=== PATIENT | female | born 1935 | race Caucasian/White ===

== ENCOUNTER 2017-05-01 13:30 | Inpatient (IN) ==
--- OUTSIDE RECORDS SUMMARY | 2017-05-01 14:12 | External Medical Summary ---
:1935 Author Organization [facility]. Summary purpose CCDA Sent to [facility] Chief Complaint and Reason for Visit Admit Diagnosis 1 hyponatremia Problem list No authorized problems tracked for continuity of care are available for this visit. Encounters No authorized problems tracked for encounter diagnoses are available for this visit. Medications No medications recorded for this patient visit Allergies, adverse reactions, alerts Allergen Category Ingredient Status Reaction Severity Onset No Known Drug No Known Drug No Known Drug Active Allergy Allergy Allergy Immunizations No immunizations recorded for this patient visit Relevant diagnostic tests and/or laboratory data No authorized results are available for this patient visit History of procedures No procedures recorded for this patient visit. Functional status No functional or cognitive status observations are available for this visit. Vital signs No authorized vital signs are available for this visit. Social history No Social History or smoking status observations were recorded for this visit. ( Unknown if ever smoked.) Treatment Plan No treatment plan text is available for this visit. Hospital discharge instructions No discharge instruction text is available for this visit.
[2017-05-01] MEDS ORDERED: HALOPERIDOL 0.5 MG TABLET PO PRN (14:37)
[2017-05-01] MEDS ORDERED: HALOPERIDOL 5 MG/ML INJECTION IM PRN (14:37)
[2017-05-01] MEDS ORDERED: LORazepam 0.5 MG TABLET PO PRN (14:37)
[2017-05-01] MEDS ORDERED: DOCUSATE SODIUM 100 MG CAPSULE PO PRN (14:39)
[2017-05-01] MEDS ORDERED: ACETAMINOPHEN 325 MG TABLET PO PRN (14:39)
[2017-05-01 14:50] VITALS: BMI 18.9
[2017-05-01] MEDS ORDERED: TEMAZEPAM 15 MG CAPSULE PO PRN (14:52)
[2017-05-01] MEDS ORDERED: Levalbuterol 0.63mg/3ml NEB AEROSOL SCH (15:00)
[2017-05-01] MEDS ORDERED: FUROSEMIDE 40 MG TABLET PO ONE (16:38)
[2017-05-01] MEDS ORDERED: ALBUTEROL/IPRATROPIUM 2.5mg-0.5mg/3ml NEB AEROSOL PRN (17:49)
[2017-05-01] MEDS ORDERED: MENTHOL COUGH DROPS (RICOLA) MM PRN (17:51)
[2017-05-01] MEDS ORDERED: TEMAZEPAM 15 MG CAPSULE PO SCH (20:00)
--- NOTE | 2017-05-01 20:02 | History & Physical Report ---
History of Present Illness Date: 05/01/17 Chief complaint: psychosis, paranoia HPI: Kerry Lutz is an 81-year-old resident at [facility] in [place] who was directly admitted to [facility] unit today, 05/01/17, due to recent increased anxiety, agitation, insomnia and obsessing tendencies. She reports that beginning in March she has had increased falls, the most recent being on 04/09/17 at which time she was found to have a right femoral neck fracture as well as a traumatic SAH. She was subsequently admitted to [facility] under the care of the trauma team and underwent an ORIF to her right hip by Dr. Oro. Her SAH did not require any treatment and repeat CT head on 04/28/17 reportedly showed resolution of the SAH. She is unable to recall the reason for her fall and admits to recent increased hypotension and bradycardia. 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 She has been following with Dr. Rice ( nephrology) regarding a new diagnosis of SIDAH and is currently on sodium chloride tabs 3x daily. She follows with Dr. Odonnell at [place] [facility] regarding her extensive cardiac history but states that she will soon be seeing Dr. Soares as he comes to the facility closer to her home. During her hospitalization at [facility], she appears to be making gains with regard to her recovery from her hip fracture but was believed to have developed "ICU psychosis". She was started on seroquel with some improvement and discharge back to [place]. Nursing staff at the facility believed that she continued to have increased behaviors and recommended evaluation for treatment in [facility]. She was transferred to the [facility] unit today, 05/01/17, for further psychiatric evaluation and treatment. Given her extensive medical history, the hospitalist service was consulted for medical management. She is seen shortly after her arrival to [facility], while eating dinner in the day room. She is able to provide good information regarding her past medical history but is noted to get confused with the details pertaining to her recent falls and experiences and is tangential at times with her thoughts. At one point she stated that she remembers waking up on the floor after falling and had been incontinent with her urine and questioned if she had passed out or had a seizure. She denies history of prior seizures. She complains of new productive cough with yellowish sputum and increased difficulty breathing since her hospitalization. She has a reported history of COPD with home oxygen use at night. She denies any fevers, chills, chest pain, abdominal pain, nausea or vomiting. On exam, lungs sounds are course with expiratory wheezing and diminished air flow bilaterally as well as productive cough. Clinical exam also revealed left sided facial droop though she denies a history of CVA. Given her recent SAH, her Coumadin and anticoagulation was discontinued indefinitely. All medical records available at the time of the admission were reviewed extensively and contributed to her history. Review of Systems All systems PM: 10-point ROS was reviewed, no additional remarkable complaints except - Constitutional Constitutional: Absent: chills, fatigue, fever(s), headache(s), lethargy, malaise, weakness - EENMT Eyes: Present: blurry vision (increased since SAH on 04/09/17.). Absent: diplopia , loss of vision, photophobia Ears: Absent: ear pain Balance: Absent: vertigo Nose: Absent: nosebleeds Mouth/Throat: Absent: sore throat, changes in swallowing, dry mouth, hoarseness - Cardiovascular Cardiovascular: Present: syncope (questionable), dyspnea on exertion, edema ( improving.), heart murmur. Absent: chest pain, palpitations Rhythm: Present: other (paroxysmal a-fib) Vascular: Present: pedal edema. Absent: pallor of an extermity, unilateral swelling - Respiratory Respiratory: Present: cough, dyspnea, dyspnea on exertion, wheezing, chest congestion, excessive phlegm production. Absent: hemoptysis, pain on inspiration - Gastrointestinal Gastrointestinal: Absent: abdominal pain, change in bowel habits, constipation, diarrhea, melena, nausea, vomiting - Genitourinary Genitourinary: Absent: dysuria, flank pain, hematuria Menstruation: post menopausal - Musculoskeletal Musculoskeletal: Present: arthralgias (right hip), limited range of motion. Absent: back pain, deformity, neck pain - Integumentary/Breasts Integumentary: Present: other (skin tear to right forearm; extensive bruising along right leg secondary to recent fall; bruising to right face.). Absent: rash - Neurological Neurological: Present: confusion, frequent falls. Absent: abnormal movements, abnormal speech, convulsions, dizziness, focal weakness, headache(s), loss of vision, tremor(s), vertigo - Psychiatric Psychiatric: Present: abnormal sleep pattern, anxiety, behavioral changes, difficulty concentrating, hallucinations (previously during hospitalization at [place]), paranoia - Endocrine Endocrine: Absent: flushing, heat intolerance, palpitations - Hematologic/Lymphatic Hematologic/Lymphatic: Present: easy bruising - Allergic/Immunologic Allergic/Immunologic: Absent: seasonal rhinorrhea Past Medical History Patient Stated Medical History Frequent falls with gait instability. Traumatic SAH - 04/09/17. 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 History of CVA - patient denies. 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 Odonnell. Hypertension. Hyperlipidemia. Paroxysmal a-fib. Sick sinus syndrome with pacemaker placement. COPD. Vitamin D deficiency. Hypothyroidism. Aortic valve stenosis with prosthetic valve replacement. CAD. Osteoarthritis. Rheumatoid arthritis. Anxiety. Cataracts. History of breast cancer - tx with tamoxifen, radiation, mastectomy- last treatment was 08/1994; no active diagnosis of cancer per pt as of 03/10/17. Surgical History: Rt mastectomy, 1989. Lumbar fusion (hardware in place), 2004. Mitral valve repair (not replaced, but "ring" in place), 2009. Maze procdure, 2009. CABG x2 (no stents), 2009. CABG x2 (no stents), 2012. Pacemaker, most recently replaced in 2014. Salpingo-oophorectomy. T&A. D&C. Cataract(s) removed Family History Updates: Mother-Breast cancer, Hypertension. Paternal Grandfather - Colon cancer. Sister - Ovarian cancer. Sister - Stroke, Multiple sclerosis. Father - Heart attack. - Social History Smoking status: Former smoker Substance use type: does not use Alcohol intake frequency: does not drink Housing: group home Household members: none Current occupational status: retired Does patient use chewing tobacco?: No Current residence: Group Home Social history: PCP - Dr. Berna Thurman. Ortho - Dr. Oro. Trauma - Dr. Gaxiola. Cardio - Dr. Odonnell and Dr. Soares. Pulm - Dr. Severino Blanco. Medications Home Medications Medication Instructions Recorded Confirmed Type Acetaminophen [Tylenol] 325 - 650 mg PO Q6HR PRN 05/01/17 05/01/17 History Amiodarone [Pacerone] 200 mg PO DAILY 05/01/17 05/01/17 History Calcium Citrate/Vitamin D3 1 each PO DAILY 05/01/17 05/01/17 History [Calcium Citrate - Vit D Caplet] Carvedilol 12.5 mg PO BID 05/01/17 05/01/17 History Cholecalciferol (Vitamin D3) 1 tab PO DAILY 05/01/17 05/01/17 History [Vitamin D3] Docusate Sodium [Colace] 1 cap PO BID PRN 05/01/17 05/01/17 History Furosemide [Lasix] 1 tab PO BID 05/01/17 05/01/17 History Levothyroxine Tab [Synthroid] 1 tab PO ACB 05/01/17 05/01/17 History Lisinopril [Zestril] 2.5 mg PO DAILY 05/01/17 05/01/17 History Magnesium Oxide [Magox 400] 400 mg PO DAILY 05/01/17 05/01/17 History Milk of Magnesia [Mom] 30 ml PO DAILY PRN 05/01/17 05/01/17 History PEG 3350 17gm PACKET [Miralax] 17 gm PO BID 05/01/17 05/01/17 History Potassium Bicarbonate/Cit AC 30 meq PO BID 05/01/17 05/01/17 History [Potassium 25 Meq Tablet Eff] Quetiapine [Seroquel] 25 mg PO HS 05/01/17 05/01/17 History Allergies Allergy/AdvReac Type Severity Reaction Status Date / Time ciprofloxacin Allergy Unknown Unverified 05/01/17 14:30 Exam Vital Signs: Temperature 98.4 F 05/01/17 14:13 Pulse Rate 76 05/01/17 14:13 Respiratory Rate 18 05/01/17 16:42 Blood Pressure 105/65 05/01/17 14:13 Pulse Oximetry 92 05/01/17 16:42 Height/Weight/BMI: Height 5 ft 5 in Weight 113 lb 12.136 oz Body Mass Index 18.9 Comments: Patient seen while sitting in the dining room, eating dinner. - Constitutional Present: no acute distress, well developed, thin, cooperative Comments: confusion at time with frequent tangential thoughts but easily redirected. - Routine HEENT Exam Head: Present: normocephalic Eye: Present: PERRL. Absent: conjunctival icterus ENT: Present: mucous membranes moist Comments: old bruising noted to right face secondary to recent falls prior to admission. - Routine Neck Exam Present: supple, full ROM, trachea midline. Absent: tenderness - Routine Chest/Breast/Axilla Exam Chest wall: Present: pacemaker Breast: Present: right mastectomy - Routine Respiratory Exam Present: dyspnea, decreased breath sounds, prolonged expiratory phase, rhonchi, wheezes, diminished air movement Comments: productive cough on exam with course, wheezing breath sounds bilaterally. - Routine Cardiovascular Exam Present: S1, S2, murmur - Routine Abdominal Exam Present: soft, normoactive bowel sounds, non distended, non tender - Routine Extremities Exam Present: edema (1+ bilaterally), non tender, full ROM, pulses intact Comments: old bruising noted along right lateral/posterior leg; surgical site not visualized on exam due to being in dining room. - Routine Back/Spine/Pelvis Exam Back/Spine: Present: full ROM, kyphosis. Absent: vertebral tenderness - Routine Skin Exam Present: dry, warm. Absent: jaundice Comments: afebrile. - Routine Neurological Exam Present: alert, oriented X3, moving all extremities, hearing grossly intact, facial asymmetry (left sided facial droop.). Absent: CN II-XII intact slight left sided facial droop with questionable slight tongue deviation to the right. - Routine Psychiatric Exam Present: cooperative Comments: tangential thoughts with some confusion and difficulty remembering information; easily redirectible. Results - Labs CBC & Chem 7: 05/01/17 16:52 05/01/17 16:52 Microbiology Results: Microbiology 05/01/17 18:19 Sputum, Expectorated Sputum Culture - Preliminary Culture Initiated - Results Pending Assessment and Plan Assessment and Plan: Assessment: Acute psychosis with increased agitation, anxiety and behaviors. S/P right femoral neck fracture with ORIF on 04/11/17 - Dr. Elizabeth. Traumatic SAH - 04/09/17 - CT on 04/28/17 showed resolution - Dr. Gaxiola. Hypernatremia (Na 145), present on admission, history of 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 Frequent falls with gait instability. Left sided facial droop with documented history of prior CVA - patient denies. 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 Odonnell. Hypertension. Hyperlipidemia. Paroxysmal a-fib. Sick sinus syndrome with pacemaker placement. COPD. Vitamin D deficiency. Hypothyroidism. Aortic valve stenosis with prosthetic valve replacement. CAD. Osteoarthritis. Rheumatoid arthritis. Anxiety. Cataracts. History of breast cancer. Plan - 05/01/17: Agree with admission to [facility] for further psychiatric evaluation and treatment. Consult PT/OT for continuation of therapies given recent ORIF to right hip on 04/11/17. Recommended follow up as outpatient with Dr. Elizabeth. [place] remain in place from procedure. Will consult Dr. Elizabeth's office to determine when silke should be removed. Reported history of SIDAH and follows with Dr. Rice. Hypernatremia (NA 145 ) present on admission. Current fluid restriction determined prior to arrival at 1200cc/day. Continue current fluid restrictions with home medications. Obtain CXR given productive cough. Initiate breathing treatments and prednisone 40mg daily x 5 days for pulmonary inflammation and cough. Mucinex for mucolytic effect. Try and obtain sputum culture. Unsure if facial droop is new. Will consult speech therapy for dysphagia screen and diet recommendations. Borderline hypotension noted on admission. Concern low blood pressure may have contributed to prior falls/syncope. Monitor closely. Obtain orthostatic blood pressures. Given complex medical history with multiple issues present, will try and obtain additional documentation from all providers to assist in further care. Upon discharge, patient's care will be returned to her PCP. Resuscitation Status: Do Not Resuscitate - Time spent with patient Time with patient PN: other (90 minutes) - Physician Narrative Physician: Marcos Hansen MD Narrative: Date: 05/01/17 Time: 2100 I have independently evaluated and examined this patient. I reviewed the chart, the patient's history, and the DEFENCE INTELLIGENCE ANALYST/PA's documented findings as above. We discussed and formulated the assessment and plan as above with additions as below: Patient was returning from the . She says she is very concerned about her fluid restriction for her SIADH. She remained very concerned even after it was explained that her Na was 145 and that she has done a great job helping treat her SIADH. She then c/o that her surgical dressing has never been changed since surgery. She has a cough that she says has been present for a week. She says she has had low-grade temps. Patient has difficulty explaining when and how she had recent falls. She has been admitted for increased anxiety, agitation, insomnia and obsessing tendencies. Anxious. CTAB. RRR. s/nt/nd. Trace BLE edema. A&Ox3. CN II-XII intact. [place]. Left facial droop. Gait unsteady with walker. Agree with admissions to [facility]. RT to follow. Would benefit from PT/OT/ ST. Could relax fluid restriction but patient unlikely to want to at this point. Needs accurate i&o's given EF 20% and diastolic dysfunction. Hospital Course Summary Disclaimer: The visit summary below is not to be considered part of the above Progress Note. Hospital Course: Plan - 05/01/17: Agree with admission to [facility] for further psychiatric evaluation and treatment. Consult PT/OT for continuation of therapies given recent ORIF to right hip on 04/11/17. Recommended follow up as outpatient with Dr. Elizabeth. Silke remain in place from procedure. Will consult Dr. Elizabeth's office to determine when silke should be removed. Reported history of SIDAH and follows with Dr. Rice. Hypernatremia (NA 145 ) present on admission. Current fluid restriction determined prior to arrival at 1200cc/day. Continue current fluid restrictions with home medications. Obtain CXR given productive cough. Initiate breathing treatments and prednisone 40mg daily x 5 days for pulmonary inflammation and cough. Mucinex for mucolytic effect. Try and obtain sputum culture. Unsure if facial droop is new. Will consult speech therapy for dysphagia screen and diet recommendations. Borderline hypotension noted on admission. Concern low blood pressure may have contributed to prior falls/syncope. Monitor closely. Obtain orthostatic blood pressures. Given complex medical history with multiple issues present, will try and obtain additional documentation from all providers to assist in further care. Upon discharge, patient's care will be returned to her PCP.
[2017-05-01] MEDS: CARVEDILOL 12.5 MG TABLET PO SCH (20:07)
[2017-05-01] MEDS: GUAIFENESIN LA 600 MG TABLET PO SCH (20:08)
[2017-05-01] MEDS: POTASSIUM BICARBONATE 25 MEQ PO SCH (20:09)
[2017-05-01] MEDS: POLYETHYL GLYCOL 3350 17gm PACKET PO SCH (20:42)
[2017-05-01] MEDS ORDERED: LORazepam 1 MG TABLET PO SCH (21:00)
[2017-05-01] MEDS ORDERED: FUROSEMIDE 80 MG TABLET PO SCH (21:00)
[2017-05-01] MEDS ORDERED: QUETIAPINE 25 MG TABLET PO SCH (21:00)
[2017-05-01] MEDS: ALBUTEROL/IPRATROPIUM 2.5mg-0.5mg/3ml NEB AEROSOL SCH (21:30)
[2017-05-01] MEDS: BUDESONIDE INH.SOLN 0.5mg/2ml NEB AEROSOL SCH (21:30)
[2017-05-02] MEDS: LEVOTHYROXINE 100 MCG PO SCH ×2 (04:57→09:05)
[2017-05-02] MEDS: PredniSONE 20 MG TABLET PO SCH ×2 (08:15→15:18)
[2017-05-02] MEDS: GUAIFENESIN LA 600 MG TABLET PO SCH (08:15)
[2017-05-02] MEDS: CARVEDILOL 12.5 MG TABLET PO SCH (08:16)
[2017-05-02] MEDS: FUROSEMIDE 40 MG TABLET PO SCH ×2 (08:16→13:23)
[2017-05-02] MEDS: POTASSIUM BICARBONATE 25 MEQ PO SCH (08:23)
[2017-05-02] MEDS: POLYETHYL GLYCOL 3350 17gm PACKET PO SCH (08:26)
[2017-05-02] MEDS ORDERED: LISINOPRIL 2.5 MG TABLET PO SCH (09:00)
[2017-05-02] MEDS ORDERED: MAGNESIUM OXIDE 400 MG TABLET PO SCH (09:00)
[2017-05-02] MEDS ORDERED: AMIODARONE 200 MG TABLET PO SCH (09:00)
[2017-05-02 09:59] VITALS: RESP 20; O2SAT 93
[2017-05-02] MEDS: BUDESONIDE INH.SOLN 0.5mg/2ml NEB AEROSOL SCH (10:00)
[2017-05-02] MEDS: ALBUTEROL/IPRATROPIUM 2.5mg-0.5mg/3ml NEB AEROSOL SCH ×3 (10:00→17:27)
--- NOTE | 2017-05-02 13:19 | XRay Report ---
INDICATION: dyspnea, CHF, productive cough PROCEDURE: CHEST 2-VIEWS UPRIGHT (PA & LAT) Encounter: Initial Comparison: April 08, 2017 Findings: New small bilateral pleural effusions with lower lobe airspace opacities. Upper lung martinez are clear. No pneumothorax. Cardiac silhouette remains severely enlarged. Prior CABG with left pacemaker. Mediastinal contours are stable. Pulmonary vascularity appears stable. Impression: New small effusions with lower lobe airspace opacities could be due to mild CHF. Underlying pneumonia cannot be excluded. Recommend clinical and laboratory correlation. .
[2017-05-02 17:23] VITALS: BP 100/78; PULSE 81; TEMP 98.4
[2017-05-02] MEDS ORDERED: CARVEDILOL 12.5 MG TABLET PO SCH (17:30)
--- NOTE | 2017-05-02 17:45 | Progress Note ---
- Date 05/02/17 Subjective: Kerry is seen today in follow up for her recent admission. She is seen initial as she is being wheeled to x-ray for her CXR and then again after returning to the unit. She appears more fatigued today and reports that she isn't feeling as well today as yesterday. She also complains of continued cough but is pleased that she seems to be getting more yellow/green sputum up. She denies any chest pain, abdominal pain, nausea, vomiting or dysuria. Review of admission labs revealed she is RSV positive. She complains of feeling more short of breath and had to be placed on 3L NC to sustain oxygen levels above 90% . She denies any fevers or chills. Patient's primary, Dr. Berna Thurman, was contacted today, and patient case was discussed extensively. She was able to provide more information regarding the recent changes in the patient's health and mentation. She reports that in January the patient started to experience more peripheral edema and insomnia believed to be due to orthopnea. At that time, spironolactone was added to her medications with some improvement. In early March, the patient's sodium started to trend down gradually. On approximately 03/13/17, the patient had a mechanical fall while feeding the birds at her home and suffered a head contusion. Her sodium continued to trend down and was found to be Na 123 on 03/25/17. At that time, she was also noted to be more confused and asking repetitive questions, specifically regarding her care. She was then admitted to [facility] and placed on a fluid restriction which resulted in her sodium decreasing further to 120. She was transferred to [facility] on 03/30/[address] Rice and diagnosed with SIADH. She was believed to be sodium depleted and salt tabs were initiated in addition to increased diuresis with improvement. She was discharged back to [place] but was noted to have continued confusion which appeared worse as well as acute delusions. On 04/09, while at [place], nursing reports that the patient "threw herself on the floor" due to delusions which resulted in a right hip fracture and SAH. She was initially admitted at [facility] and then transferred to [facility] for treatment. She underwent ORIF of her right hip on 04/11/[address] Gaxiola saw her regarding her new SAH but determined it was not surgical. She was taken off her chronic anticoagulation with Coumadin for her history of a-fib and valvular disease given her SAH. She seemed to be improving and was discharged back to [place] on 04/14/17. On 04/22 she appeared to have some increased swelling and followed up with Dr. Rice who discontinued her sodium tablets. She was then seen by her roofer helper, Dr. Odonnell who recommended increasing her Lasix to 80mg BID. The patient then followed up with Dr. Thurman on due to new cough and found to have new wheezing and was started on Xopenex. PCP believed wheezing was due to fluid overload, despite 17 pound weight loss since initiation of high dose Lasix and thus reduced her Lasix to 40mg BID. She reportedly continued to exhibit increased anxieties, insomnia and obsessing over her treatment plans, specifically her fluid restriction. Family became increasing concerned and felt the patient needed inpatient psychiatric care she she was admitted to [facility]. On arrival she was noted to be acute short of breath. Respiratory panel was obtained and was positive for RSV. Throughout the night and into today, her respiratory function has declined, requiring continuous oxygen to maintain SAO2. Due to her acute respiratory failure with hypoxia and hypercapnia and acute RSV infection, it was decided she would benefit from being transferred to the medical unit. Treatment plan discussed with Dr. Garza who is happy to continue psychiatric cares after transfer to medical. Patient's niece, Esther, was contacted and an extensive discussion regarding change in clinical status and recommendations for transfer to medical floor was had and she agreed with plan. All labs, medications, imaging results and recommendations were also discussed with the patient who openly agreed to moving to medical floor. The hospitalist will continue care after transfer. Objective Vital signs: Temperature 98.2 F 05/02/17 08:00 Pulse Rate 84 05/02/17 09:45 Respiratory Rate 20 05/02/17 13:55 Blood Pressure 108/78 05/02/17 08:00 Pulse Oximetry 93 05/02/17 09:45 Height/Weight/BMI: Height 5 ft 5 in Weight 113 lb 12.136 oz Body Mass Index 18.9 Comments: Patient appears more fatigued today with increased respiratory distress despite oxygen supplement at 3L. 5-6 word conversational dyspnea with increased respiratory effort noted. - Constitutional Present: well developed, thin, cooperative Comments: appeared tired and not to feel well. - Routine HEENT Exam Head: Present: normocephalic Eye: Present: PERRL. Absent: conjunctival icterus ENT: Present: mucous membranes dry - Routine Respiratory Exam Present: accessory muscle use, dyspnea, decreased breath sounds, rhonchi, wheezes. Absent: stridor Comments: diminished breath sounds with rhonchi bilaterally; frequent, productive cough with mild conversational dyspnea; currently on 3L. - Routine Cardiovascular Exam Present: S1, S2, irregular rhythm - Routine Abdominal Exam Present: soft, normoactive bowel sounds, non tender, distended - Routine Extremities Exam Present: edema (1+), non tender, full ROM, pulses intact - Routine Back/Spine/Pelvis Exam Back/Spine: Present: full ROM. Absent: vertebral tenderness - Routine Musculoskeletal Exam Musculoskeletal: Present: moving extremities well - Routine Skin Exam Present: dry, warm. Absent: jaundice Comments: afebrile. - Routine Neurological Exam Present: alert, oriented X3, moving all extremities, facial asymmetry (left sided facial droop), normal speech - Routine Lymphatic Exam Lymphatic: Absent: lymphedema - Routine Psychiatric Exam Present: cooperative Results - Labs CBC & Chem 7: 05/01/17 16:52 05/01/17 16:52 Microbiology Results: Microbiology 05/02/17 09:55 Sputum, Expectorated Gram Stain - Final 05/02/17 09:55 Sputum, Expectorated Sputum Culture - Preliminary Culture Initiated - Results Pending 05/01/17 18:19 Sputum, Expectorated Gram Stain - Final 05/01/17 18:19 Sputum, Expectorated Sputum Culture - Final Assessment and Plan Assessment and Plan: Assessment: Acute psychosis with increased agitation, anxiety and behaviors. S/P right femoral neck fracture with ORIF on 04/11/17 - Dr. Elizabeth. Traumatic SAH - 04/09/17 - CT on 04/28/17 showed resolution - Dr. Gaxiola. Hypernatremia (Na 145), present on admission, history of 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 Frequent falls with gait instability. Left sided facial droop with documented history of prior CVA - patient denies. 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 Odonnell. Hypertension. Hyperlipidemia. Paroxysmal a-fib. Sick sinus syndrome with pacemaker placement. COPD. Vitamin D deficiency. Hypothyroidism. Aortic valve stenosis with prosthetic valve replacement. CAD. Osteoarthritis. Rheumatoid arthritis. Anxiety. Cataracts. History of breast cancer. Plan - 05/02/17 Will plan to move patient to observation status on medication floor given respiratory failure with hypoxia and hypercapnia as well as RSV. Family contacted and agrees with plan. Will continue psychiatric cares on floor with close medical monitoring. Resuscitation Status: Do Not Resuscitate - Time spent with patient Time with patient PN: other (120 minutes) - Physician Narrative Physician: Marcos Hansen MD Narrative: Date: 05/02/17 Time: 1718 Hospital Course Summary Disclaimer: The visit summary below is not to be considered part of the above Progress Note. Hospital Course: Plan - 05/01/17: Agree with admission to [facility] unit for further psychiatric evaluation and treatment. Consult PT/OT for continuation of therapies given recent ORIF to right hip on 04/11/17. Recommended follow up as outpatient with Dr. Elizabeth. Silke remain in place from procedure. Will consult Dr. Elizabeth's office to determine when silke should be removed. Reported history of SIDAH and follows with Dr. iRce. Hypernatremia (NA 145 ) present on admission. Current fluid restriction determined prior to arrival at 1200cc/day. Continue current fluid restrictions with home medications. Obtain CXR given productive cough. Initiate breathing treatments and prednisone 40mg daily x 5 days for pulmonary inflammation and cough. Mucinex for mucolytic effect. Try and obtain sputum culture. Unsure if facial droop is new. Will consult speech therapy for dysphagia screen and diet recommendations. Borderline hypotension noted on admission. Concern low blood pressure may have contributed to prior falls/syncope. Monitor closely. Obtain orthostatic blood pressures. Given complex medical history with multiple issues present, will try and obtain additional documentation from all providers to assist in further care. Upon discharge, patient's care will be returned to her PCP. Plan - 05/02/17 Will plan to move patient to observation status on medication floor given respiratory failure with hypoxia and hypercapnia as well as RSV. Family contacted and agrees with plan. Will continue psychiatric cares on floor with close medical monitoring.
--- NOTE | 2017-05-02 23:40 | 24 Hour Neuropsychiatic Eval ---
Date of Admission: 05/01/17 13:30 History of Present Illness: Patient is an 81-year-old retired female who was admitted to [facility] from [facility] on 05/01/17 due to uncontrolled anxiety that caused significant distress and difficulty sleeping. I spoke with her PCP over the phone, who felt at that time that patient was medically stable but once admitted , the hospitalist here had significant concerns about her medical condition. Per hospitalist: "She reports that beginning in March she has had increased falls, the most recent being on 04/09/17 at which time she was found to have a right femoral neck fracture as well as a traumatic SAH. She was subsequently admitted to [facility] under the care of the trauma team and underwent an ORIF to her right hip by Dr. Oro. Her SAH did not require any treatment and repeat CT head on 04/28/17 reportedly showed resolution of the SAH. She is unable to recall the reason for her fall and admits to recent increased hypotension and bradycardia. 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 At one point she stated that she remembers waking up on the floor after falling and had been incontinent with her urine and questioned if she had passed out or had a seizure. She denies history of prior seizures. She complains of new productive cough with yellowish sputum and increased difficulty breathing since her hospitalization. She has a reported history of COPD with home oxygen use at night. She denies any fevers, chills, chest pain, abdominal pain, nausea or vomiting. On exam, lungs sounds are course with expiratory wheezing and diminished air flow bilaterally as well as productive cough. Clinical exam also revealed left sided facial droop though she denies a history of CVA. Given her recent SAH, her Coumadin and anticoagulation was discontinued indefinitely." She was found to have low O2 sats overnight and tested positive for RSV, possibly with a developing pneumonia after arrival to our unit. On interview, patient is mostly oriented other than getting the date wrong by 1 day. She reports that her mood has been okay though she does have anxiety about her medical conditions and whether they are being taken care of properly. She endorses decreased appetite, low energy, difficulty with sleep. She denies SI, HI, AVH. SLUMS upon admission. [facility] Patient Stated Medical History Cerebrovascular Accident Yes Congestive Heart Failure Yes Other Cardiology Yes: AFIB Osteoarthritis Yes Clinic Medical History (Last Reviewed 03/11/17 @ 15:17 by Karen Ulloa MD) Rheumatoid arthritis (Chronic Medical) Osteoarthritis (Chronic Medical) Bone disorder (Acute Medical) Muscle disorder (Acute Medical) Anxiety (Resolved Medical) Cataract (Resolved Medical) Thyroid disease (Chronic Medical) Breast cancer (Inactive Medical) tx was tamoxifen, radiation, and mastectomy; last treatment was 08/1994; no active dx of cancer per pt as of 03/10/17 CAD (coronary artery disease) (Chronic Medical) Congestive heart failure (Chronic Medical) Atrial fibrillation (Chronic Medical) Surgical History: Rt mastectomy, 1989. Lumbar fusion (hardware in place), 2004. Mitral valve repair (not replaced, but "ring" in place), 2009. Maze procdure, 2009. CABG x2 (no stents), 2009. CABG x2 (no stents), 2012. Pacemaker, most recently replaced in 2014. Salpingo-oophorectomy. T&A. D&C. Cataract(s) removed Family History: Family History (Last Reviewed 03/11/17 @ 15:17 by Karen Ulloa MD) Mother Breast cancer Hypertension Paternal Grandfather Colon cancer Sister Ovarian cancer Stroke Multiple sclerosis Father Heart attack Family History Updates: Mother-Breast cancer, Hypertension. Paternal Grandfather - Colon cancer. Sister - Ovarian cancer. Sister - Stroke, Multiple sclerosis. Father - Heart attack. - Social History Smoking status: Former smoker Substance use type: does not use Alcohol intake frequency: does not drink Housing: custodial Household members: none Current occupational status: retired Does patient use chewing tobacco?: No Current residence: [facility] Social history: Strengths: previously high functioning, SLUMS , able to communicate well verbally Review of Systems - Constitutional Constitutional: Present: as per HPI, fatigue, weakness - EENMT Eyes: Present: blurry vision (since brain bleed) Ears: Absent: ear pain Balance: Absent: vertigo Nose: Absent: nosebleeds Mouth/Throat: Absent: sore throat, changes in swallowing, dry mouth, hoarseness - Cardiovascular Rhythm: Present: other (paroxysmal a-fib) Vascular: Present: pedal edema. Absent: pallor of an extermity, unilateral swelling - Genitourinary Menstruation: post menopausal - Psychiatric Psychiatric: Present: as per HPI, abnormal sleep pattern, anxiety, behavioral changes. Absent: homicidal ideation, suicidal ideation, visual hallucinations Mental Status Exam Vitals: Last Vital Signs Temp 98.4 F 05/02/17 16:00 Pulse 81 05/02/17 16:00 Resp 20 05/02/17 16:00 BP 100/78 05/02/17 16:00 Pulse Ox 93 05/02/17 16:00 Height: 1.65 m Weight: 51.8 kg - Mental Status Exam Muscle Strength/Tone: Weak Dressing: Casual Grooming: Fair Attitude: Cooperative Motor Activity: Retardation Eye Contact: Good Speech: Normal Volume: Normal Rhythm: Appropriate Rhythm Sensory: Alert Orientation: Disoriented to time (by 1 day only), Oriented to person, Oriented to place Mood: Anxious Affect: Anxious Rate of Thoughts: Appropriate Rate Thought Organization: Tangential (at times) Associations: Intact Thought Content: Somatic Concerns Perception/Psychotic: Perception Normal Fund of Knowledge: Other (decreased from premorbid baseline, SLUMS ) Memory: Poor-recent Suicidal Ideation: Denies Homicidal Ideation: Denies Insight: Limited Judgement: Limited Impulse Control: Fair - Laboratory Result Diagrams: 05/01/17 16:52 05/01/17 16:52 Laboratory Results - last 24 hr 05/01/17 05/02/17 05/02/17 16:52 05:20 08:20 Vitamin B12 479 Folate 17.8 Adenovirus (PCR) Negative Cancelled B.parapertussis DNA PCR Negative Cancelled C. pneumoniae DNA (PCR) Negative Cancelled Coronavirus OC43 (PCR) Negative Cancelled Coronavirus HKU1 (PCR) Negative Cancelled Coronavirus 229E (PCR) Negative Cancelled Coronavirus NL63 (PCR) Negative Cancelled Human Metapneumovir PCR Negative Cancelled Influenza A (H1) PCR Cancelled Influ A (H1N1/09) PCR Cancelled Influenza A (H3) PCR Cancelled Influenza Type A (PCR) Negative Cancelled Influenza A Untype (PCR) Cancelled Influenza Type B (PCR) Negative Cancelled M. pneumoniae (PCR) Negative Cancelled Parainfluenza 1 (PCR) Negative Cancelled Parainfluenza 2 (PCR) Negative Cancelled Parainfluenza 3 (PCR) Negative Cancelled Parainfluenza 4 (PCR) Negative Cancelled RSV (PCR) Detected A* Cancelled Entero/Rhino (PCR) Negative Cancelled Assessment and Plan (1) Anxiety, generalized Status: Acute (2) Neurocognitive disorder Status: Acute (3) RSV (acute bronchiolitis due to respiratory syncytial virus) Status: Acute (4) Respiratory failure with hypoxia and hypercapnia Status: Acute (5) Atrial fibrillation Status: Chronic (6) CAD (coronary artery disease) Status: Chronic (7) Congestive heart failure Status: Chronic (8) Rheumatoid arthritis Status: Chronic (9) Thyroid disease Status: Chronic After extensive discussion with hospitalist, decision was made to transfer to the medical floor and consult psychiatry for recommendations. Patient has been anxious but redirectable without use of PRNs on our unit. Hospitalist feels short course of steroids necessary due to respiratory status; will manage anxiety and insomnia through this period. Would like to optimize medical condition including sleep, oxygen, nutrition and evaluate symptoms afterwards. On admission, I discontinued Restoril and alternatively started Ativan 1mg at HS (on 05/01). Patient slept well overnight. On the medical floor, plan to taper Ativan and start mirtazapine 7.5mg PO q HS to target sleep, anxiety, insomnia. Continue Seroquel 25mg PO q HS for the time being. Recommended adding vitamin B12, folate to standard labs as above. CT prior to admission showed stable brain bleed.
== END 2017-05-02 18:25 | disposition short-term general hospital (02) | DRG 885 ==
LOC: GEN 13:30
PROVIDERS: ADMIT Psychiatry & Neurology Psychiatry; ATTEND Psychiatry & Neurology Psychiatry

== ENCOUNTER 2017-05-02 18:20 | Observation (INO) ==
[2017-05-02] MEDS ORDERED: ALBUTEROL/IPRATROPIUM 2.5mg-0.5mg/3ml NEB AEROSOL PRN (19:02)
[2017-05-02] MEDS ORDERED: HALOPERIDOL 5 MG/ML INJECTION IM PRN (19:02)
[2017-05-02] MEDS ORDERED: LORazepam 0.5 MG TABLET PO PRN (19:02)
[2017-05-02] MEDS ORDERED: HALOPERIDOL 0.5 MG TABLET PO PRN (19:02)
[2017-05-02] MEDS ORDERED: ACETAMINOPHEN 325 MG TABLET PO PRN (19:02)
[2017-05-02] MEDS ORDERED: ONDANSETRON 4 MG/2 ML INJECTION IVP PRN (19:04)
--- NOTE | 2017-05-02 20:09 | History & Physical Report ---
History of Present Illness Date: 05/02/17 Chief complaint: respiratory failure with hypoxia and hypercapnia, RSV HPI: Kerry Lutz is an 81-year-old resident at [facility] in [place] with an incredibly complex medical history who was directly admitted to [facility] on 05/01/17 for treatment of recently increased anxiety, agitation, insomnia and obsessing tendencies. It was reported that in January the patient started to experience more peripheral edema and insomnia believed to be due to orthopnea. At that time, spironolactone was added to her medications with some improvement. In early March, the patient's sodium started to trend down gradually. On approximately 03/13/17, the patient had a mechanical fall while feeding the birds at her home and suffered a head contusion without other injury. Repeat labs revealed that her sodium continued to trend down and was found to be 123 on 03/25/17. At that time, she was also noted to be more confused and asking repetitive questions, specifically regarding her care, which was unusual for her. She was then admitted to [facility] and placed on a fluid restriction which resulted in her sodium decreasing further to 120. She was then transferred to [facility] on 03/30/[address] Rice (nephrology) and diagnosed with SIADH. She was believed to be sodium depleted and salt tabs were initiated in addition to increased diuresis which resulted in improvement. She was discharged back to [facility] but was noted to have continued confusion per family and staff which appeared worse than previous as well as acute delusions. On 04/09, while at [facility], nursing reports that the patient "threw herself on the floor" due to delusions which resulted in a right hip fracture and SAH. She was initially admitted at [facility] and then transferred to [facility] for treatment. She underwent ORIF of her right hip on 04/11/[address] Gaxiola saw her regarding her new SAH but determined it was not surgical. She was taken off her chronic anticoagulation with Coumadin for her history of a-fib and valvular disease given her SAH. She seemed to be improving and was discharged back to [facility] on 04/14/17. On 04/22 she appeared to again have some increased swelling and followed up with Dr. Rice who discontinued her sodium tablets. She was then seen by her cook short order, Dr. Odonnell who recommended increasing her Lasix to 80mg BID. The patient followed up with Dr. Thurman on 04/28/17 due to new cough and found to have new wheezing and was started on Xopenex. PCP believed wheezing was due to fluid overload, despite 17 pound weight loss since initiation of high dose Lasix and thus reduced her Lasix to 40mg BID. She reportedly continued to exhibit increased anxieties, insomnia and obsessing over her treatment plans, specifically her fluid restriction of 1500cc. Family became increasing concerned and felt the patient needed inpatient psychiatric care. She she was admitted to [facility] on 05/01/17 for further psychiatric evaluation and treatment. The hospitalist service saw her on arrival to [facility] on 05/01/17 and noted she appeared to be acutely short of breath. Respiratory panel was obtained at that time and was positive for RSV. Throughout the night on 05/01 and into 05/02, her respiratory function gradually declined, requiring the placement of continuous oxygen to maintain SAO2 >90%. Due to her acute respiratory failure with hypoxia and hypercapnia and acute RSV infection, it was decided she would benefit from being transferred to the medical unit. Treatment plan was discussed with Dr. Garza who is happy to continue psychiatric cares after transfer to medical. Patient's niece, Esther, was contacted and an extensive discussion regarding change in clinical status and recommendations for transfer to medical floor was had and she agreed with plan. All labs, medications, imaging results and recommendations were also discussed with the patient who openly agreed to moving to medical floor. She was admitted to observation status under the care of Dr. Hansen for further evaluation and close respiratory monitoring. Review of Systems All systems PM: 10-point ROS was reviewed, no additional remarkable complaints except - Constitutional Constitutional: Present: chills, fatigue, malaise, weakness (generalized). Absent: fever(s), headache(s) - EENMT Eyes: Present: change in vision (since SAH). Absent: loss of vision, photophobia Ears: Absent: ear pain Nose: Absent: nosebleeds Mouth/Throat: Present: dry mouth. Absent: sore throat - Cardiovascular Cardiovascular: Present: dyspnea on exertion, orthopnea, edema, heart murmur. Absent: chest pain, palpitations Vascular: Present: pedal edema. Absent: pallor of an extermity - Respiratory Respiratory: Present: cough, dyspnea, dyspnea on exertion, wheezing, chest congestion. Absent: hemoptysis - Gastrointestinal Gastrointestinal: Present: constipation, dyspepsia. Absent: abdominal pain, diarrhea, nausea, vomiting - Genitourinary Genitourinary: Absent: dysuria, flank pain, hematuria Menstruation: post menopausal - Musculoskeletal Musculoskeletal: Present: muscle weakness. Absent: back pain, deformity - Integumentary/Breasts Integumentary: Absent: rash - Neurological Neurological: Present: weakness. Absent: confusion, convulsions, dizziness, focal weakness, headache(s) - Psychiatric Psychiatric: Present: abnormal sleep pattern, anxiety, behavioral changes - Endocrine Endocrine: Absent: flushing, heat intolerance, palpitations - Hematologic/Lymphatic Hematologic/Lymphatic: Absent: easy bruising - Allergic/Immunologic Allergic/Immunologic: Absent: seasonal rhinorrhea Past Medical History Patient Stated Medical History Frequent falls with gait instability. Traumatic SAH - 04/09/17. [facility] - Dr. Rice. History of CVA - patient denies. 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 Odonnell. Protein calorie malnutrition, mild. Hypertension. Hyperlipidemia. Paroxysmal a-fib. Sick sinus syndrome with pacemaker placement. Possible COPD. Vitamin D deficiency. Hypothyroidism. Aortic valve stenosis with prosthetic valve replacement. CAD. Osteoarthritis. Rheumatoid arthritis. Anxiety. Cataracts. History of breast cancer - tx with tamoxifen, radiation, mastectomy- last treatment was 08/1994; no active diagnosis of cancer per pt as of 03/10/17. Surgical History: Rt mastectomy, 1989. Lumbar fusion (hardware in place), 2004. Mitral valve repair (not replaced, but "ring" in place), 2009. Maze procdure, 2009. CABG x2 (no stents), 2009. CABG x2 (no stents), 2012. Pacemaker, most recently replaced in 2014. Salpingo-oophorectomy. T&A. D&C. Cataract(s) removed Family History Updates: Mother-Breast cancer, Hypertension. Paternal Grandfather - Colon cancer. Sister - Ovarian cancer. Sister - Stroke, Multiple sclerosis. Father - Heart attack. - Social History Smoking status: Former smoker (quit 1983.) Substance use type: does not use Alcohol intake frequency: does not drink Housing: snf Household members: none Current occupational status: retired (nurse) Current residence[place] Social history: PCP - Dr. Berna Thurman. Ortho - Dr. Oro. Trauma - Dr. Gaxiola. Cardio - Dr. Odonnell and Dr. Soares. Pulm - Dr. Severino Blanco. Nephro - Dr. Rice. Medications Home Medications Medication Instructions Recorded Confirmed Type Acetaminophen [Tylenol] 325 - 650 mg PO Q6HR PRN 05/01/17 05/01/17 History Amiodarone [Pacerone] 200 mg PO DAILY 05/01/17 05/01/17 History Calcium Citrate/Vitamin D3 1 each PO DAILY 05/01/17 05/01/17 History [Calcium Citrate - Vit D Caplet] Carvedilol 12.5 mg PO BID 05/01/17 05/01/17 History Cholecalciferol (Vitamin D3) 1 tab PO DAILY 05/01/17 05/01/17 History [Vitamin D3] Docusate Sodium [Colace] 1 cap PO BID PRN 05/01/17 05/01/17 History Levothyroxine Tab [Synthroid] 1 tab PO ACB 05/01/17 05/01/17 History Lisinopril [Zestril] 2.5 mg PO DAILY 05/01/17 05/01/17 History Magnesium Oxide [Magox 400] 400 mg PO DAILY 05/01/17 05/01/17 History Milk of Magnesia [Mom] 30 ml PO DAILY PRN 05/01/17 05/01/17 History PEG 3350 17gm PACKET [Miralax] 17 gm PO BID 05/01/17 05/01/17 History Potassium Bicarbonate/Cit AC 30 meq PO BID 05/01/17 05/01/17 History [Potassium 25 Meq Tablet Eff] Quetiapine [Seroquel] 25 mg PO HS 05/01/17 05/01/17 History Albuterol/Ipratropium [Duoneb] 3 ml AEROSOL RTQID each 05/02/17 Rx Albuterol/Ipratropium [Duoneb] 3 ml AEROSOL RTQID PRN each 05/02/17 Rx Budesonide Inhalation [Pulmicort 0.5 mg AEROSOL RTBID vial 05/02/17 Rx Inhalation] Furosemide [Lasix] 40 mg PO 0800,1200 tab 05/02/17 Rx Guaifenesin LA [Mucinex LA] 1,200 mg PO BID tab 05/02/17 Rx Haloperidol Inj [Haldol] 0.5 mg IM Q6H PRN vial 05/02/17 Rx Haloperidol [Haldol] 0.5 mg PO Q6H PRN tab 05/02/17 Rx LORazepam [Ativan] 0.5 mg PO Q6H PRN tab 05/02/17 Rx LORazepam [Ativan] 1 mg PO HS tab 05/02/17 Rx Menthol Cough Drops [Ricola Sf] 1 lozenge MM PRN PRN lozenge 05/02/17 Rx PredniSONE [Deltasone 20 mg] 40 mg PO WB tab 05/02/17 Rx Allergies Allergy/AdvReac Type Severity Reaction Status Date / Time ciprofloxacin Allergy Unknown Verified 05/02/17 01:36 ezetimibe AdvReac Mild Myalgia Verified 05/02/17 01:36 Exam Height/Weight/BMI: Height 5 ft 5 in Comments: Patient is initially seen immediately after being transferred to medical. She appears more fatigued and continues to have some tachypnea despite being on 3L NC. Frequent productive cough. - Constitutional Present: mild distress, well developed, thin, cooperative - Routine HEENT Exam Head: Present: normocephalic Eye: Present: PERRL. Absent: conjunctival icterus ENT: Present: mucous membranes dry Comments: old bruising noted to right side of face from prior fall. - Routine Neck Exam Present: supple, full ROM, trachea midline - Routine Chest/Breast/Axilla Exam Chest wall: Present: pacemaker - Routine Respiratory Exam Present: accessory muscle use, dyspnea, decreased breath sounds, respiratory distress, rhonchi, wheezes, crackles. Absent: stridor - Routine Cardiovascular Exam Present: RRR, S1, S2, murmur - Routine Abdominal Exam Present: soft, normoactive bowel sounds, non tender, distended - Routine Extremities Exam Present: edema (1+), non tender, full ROM, pulses intact Comments: recent ORIF to right hip; bruising along right leg secondary to recent surgery. - Routine Back/Spine/Pelvis Exam Back/Spine: Present: full ROM, kyphosis. Absent: vertebral tenderness - Routine Skin Exam Present: dry, warm. Absent: jaundice Comments: afebrile. - Routine Neurological Exam Present: alert, oriented X3, moving all extremities, hearing grossly intact, facial asymmetry (left sided facial droop - no history of CVA.), normal speech - Routine Psychiatric Exam Present: cooperative, anxious Assessment and Plan (1) Respiratory failure with hypoxia and hypercapnia Current visit: Yes Status: Acute (2) RSV (acute bronchiolitis due to respiratory syncytial virus) Current visit: Yes Status: Acute (3) Anxiety, generalized Current visit: Yes Status: Acute Assessment and Plan: Assessment: Acute respiratory failure with hypoxia and hypercapnia. Acute RSV. Acute psychosis with delirium, increased agitation, anxiety and behaviors. S/P right femoral neck fracture with ORIF on 04/11/17 - Dr. Elizabeth. Traumatic SAH - 04/09/17 - CT on 04/28/17 showed resolution - Dr. Gaxiola. Hypernatremia (Na 145), present on admission, history of 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 Frequent falls with gait instability. Left sided facial droop - no history of prior CVA. 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 Odonnell. Nocturnal home oxygen use at 2L. Hypertension. Hyperlipidemia. Paroxysmal a-fib. Sick sinus syndrome with pacemaker placement. COPD. Vitamin D deficiency. Hypothyroidism. Aortic valve stenosis with prosthetic valve replacement. CAD. Osteoarthritis. Rheumatoid arthritis. Anxiety. Cataracts. History of breast cancer. Plan - 05/02/17: Admit to observation from [facility] under the care of Dr. Hansen for further medical evaluation and treatment. Consult Dr. Garza for continued psychiatric cares given recent acute psychosis and delusions with increased anxiety. RSV positive on 05/01/17. Continue supplemental oxygen to maintain SAO2 >90%, weaning as able. Patient chronically uses 2L at night but no supplemental oxygen during day. Monitor closely on telemetry with continuous pulse oximetry. Continue respiratory cares including DuoNeb treatments and Pulmicort. Mucinex for mucolytic effect. Encourage incentive spirometry and acapella. Continue prednisone 40mg daily - initiated on 05/02/17 - for pulmonary inflammation. Monitor closely for increased agitation and delirium. Sputum culture on 05/01/17 revealed M. catarrhalis. Patient remains afebrile without leukocytosis. Will continue to hold of initiation of antibiotics. Monitor closely for signs of worsening condition. Severe CHF with EF 20%. Monitor daily weight and urinary output closely. History of hypertension with recent low blood pressure. Will decrease home Coreg from 12.5mg to 6.25mg BID. Hold if systolic pressure <90. Will hold off on IV fluids given patient's severe CHF. Patient previously on FR 1200cc/day established prior to admission. Given hypernatremia (Na 145), will increase FR to 1500cc/day. SCDs for DVT prophylaxis. Patient is not a candidate for anticoagulation given recent SAH. Upon discharge, her care will be returned to her PCP. DVT Prophylaxis: SCD's GI Prophylaxis: Pepcid Resuscitation Status: Do Not Resuscitate - Time spent with patient Time with patient PN: other (120 min) - Physician Narrative Physician: Marcos Hansen MD Narrative: Date: 05/02/17 Time: 2139 I have independently evaluated and examined this patient. I reviewed the chart, the patient's history, and the [employer]/PA's documented findings as above. We discussed and formulated the assessment and plan as above with additions as below: 81 yo with HFrEF, a fib, prosthetic aortic valve, CAD, sick sinus, SIADH, recent traumatic SAH and recent right hip fx was admitted to [facility] with acute psychosis. She is requiring O2 and has been found to have RSV. Because of the difficulty for nursing to care for the patient she was transferred to the medical floor. She says she sometimes has a productive cough with yellowish sputum. She denies f/c. She has had some chest pain associated only with her cough. She says she has always had anxiety but that she had it under better control until recently. NAD. Diminished breath sounds with few crackles. RRR. s/nt/nd. Trace edema. A& Ox3. [place]. Cooperative. Titrate O2. Continue breathing treatments. Monitor fluid status. No anticoagulation given recent SAH and fall risk. Case d/w her PCP, Dr. Nazanin Atkins. Psychiatry will be consulted. Sputum being ID'd as Moraxella catarrhalis. Patient has been afebrile and WBC is not elevated. No clear pneumonia on CXR - more c/w CHF. Observe. Hospital Course Summary Disclaimer: The visit summary below is not to be considered part of the above Progress Note. Hospital Course: Plan - 05/02/17: Admit to observation from [facility] under the care of Dr. Bysfield for further medical evaluation and treatment. Consult Dr. Garza for continued psychiatric cares given recent acute psychosis and delusions with increased anxiety. RSV positive on 05/01/17. Continue supplemental oxygen to maintain SAO2 >90%, weaning as able. Patient chronically uses 2L at night but no supplemental oxygen during day. Monitor closely on telemetry with continuous pulse oximetry. Continue respiratory cares including DuoNeb treatments and Pulmicort. Mucinex for mucolytic effect. Encourage incentive spirometry and acapella. Continue prednisone 40mg daily - initiated on 05/02/17 - for pulmonary inflammation. Monitor closely for increased agitation and delirium. Sputum culture on 05/01/17 revealed M. catarrhalis. Patient remains afebrile without leukocytosis. Will continue to hold of initiation of antibiotics. Monitor closely for signs of worsening condition. Severe CHF with EF 20%. Monitor daily weight and urinary output closely. History of hypertension with recent low blood pressure. Will decrease home Coreg from 12.5mg to 6.25mg BID. Hold if systolic pressure <90. Will hold off on IV fluids given patient's severe CHF. Patient previously on FR 1200cc/day established prior to admission. Given hypernatremia (Na 145), will increase FR to 1500cc/day. SCDs for DVT prophylaxis. Patient is not a candidate for anticoagulation given recent SAH. Upon discharge, her care will be returned to her PCP.
[2017-05-02] MEDS ORDERED: LORazepam 1 MG TABLET PO SCH (21:00)
[2017-05-02] MEDS ORDERED: POTASSIUM BICARBONATE 25 MEQ PO SCH (21:00)
[2017-05-02] MEDS: GUAIFENESIN LA 600 MG TABLET PO SCH (22:08)
[2017-05-02] MEDS: QUETIAPINE 25 MG TABLET PO SCH (22:09)
[2017-05-02] MEDS: POLYETHYL GLYCOL 3350 17gm PACKET PO SCH (22:09)
[2017-05-02] MEDS: MENTHOL COUGH DROPS (RICOLA) MM PRN (22:25)
[2017-05-03] MEDS: LEVOTHYROXINE 100 MCG TABLET PO SCH (06:28)
[2017-05-03] MEDS: BUDESONIDE INH.SOLN 0.5mg/2ml NEB AEROSOL SCH ×2 (06:52→20:05)
[2017-05-03] MEDS: ALBUTEROL/IPRATROPIUM 2.5mg-0.5mg/3ml NEB AEROSOL SCH ×4 (06:52→20:05)
[2017-05-03] MEDS ORDERED: CARVEDILOL 12.5 MG TABLET PO SCH (08:00)
[2017-05-03] MEDS: PredniSONE 20 MG TABLET PO SCH (09:06)
[2017-05-03] MEDS: GUAIFENESIN LA 600 MG TABLET PO SCH ×2 (09:07→21:55)
[2017-05-03] MEDS: POLYETHYL GLYCOL 3350 17gm PACKET PO SCH ×2 (09:07→21:57)
[2017-05-03] MEDS: MAGNESIUM OXIDE 400 MG TABLET PO SCH (09:09)
[2017-05-03] MEDS: AMIODARONE 200 MG TABLET PO SCH (09:09)
[2017-05-03] MEDS: FUROSEMIDE 40 MG TABLET PO SCH ×2 (09:09→12:06)
[2017-05-03] MEDS: LISINOPRIL 2.5 MG TABLET PO SCH (09:09)
[2017-05-03] MEDS: CARVEDILOL 6.25 MG TABLET PO SCH ×2 (09:10→17:29)
[2017-05-03 11:28] VITALS: BMI 19.1
[2017-05-03] MEDS: DOCUSATE SODIUM 100 MG CAPSULE PO PRN (12:09)
--- NOTE | 2017-05-03 20:18 | Progress Note ---
- Date 05/03/17 Subjective: Patient is denying any significant shortness of breath. Still has fairly significant cough. Supplemental oxygen is at 2 L and this or baseline which is [place] Objective Vital signs: Temperature 96.4 F L 05/03/17 15:55 Pulse Rate 79 05/03/17 16:00 Respiratory Rate 18 05/03/17 15:55 Blood Pressure 122/77 05/03/17 15:55 Pulse Oximetry 94 05/03/17 15:55 Height/Weight/BMI: Height 5 ft 5 in Weight 52.2 kg Body Mass Index 19.1 - Constitutional Present: well developed, thin - Routine HEENT Exam Eye: Present: EOMI ENT: Present: mucous membranes moist, dentition normal - Routine Respiratory Exam Present: rhonchi. Absent: wheezes - Routine Cardiovascular Exam Present: RRR. Absent: murmur - Routine Abdominal Exam Present: soft, normoactive bowel sounds, non distended. Absent: tenderness - Routine Extremities Exam Present: normal capillary refill - Routine Skin Exam Present: dry, warm - Routine Neurological Exam Present: alert, oriented X3, CN II-XII intact - Routine Lymphatic Exam Lymphatic: Absent: adenopathy - Routine Psychiatric Exam Present: anxious Results - Labs CBC & Chem 7: 05/03/17 06:53 05/03/17 06:53 Assessment and Plan (1) Respiratory failure with hypoxia and hypercapnia Current visit: Yes Status: Acute (2) RSV (acute bronchiolitis due to respiratory syncytial virus) Current visit: Yes Status: Acute (3) Anxiety, generalized Current visit: Yes Status: Acute Assessment and Plan: Acute Assessment: Acute respiratory failure with hypoxia and hypercapnia. Acute RSV. Acute psychosis with delirium, increased agitation, anxiety and behaviors. S/P right femoral neck fracture with ORIF on 04/11/17 - Dr. Elizabeth. Traumatic SAH - 04/09/17 - CT on 04/28/17 showed resolution - Dr. Gaxiola. Hypernatremia (Na 145), present on admission, history of 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 Frequent falls with gait instability. Left sided facial droop -not observed Systolic and diastolic heart failure - EF 20% - Dr. Odonnell. Nocturnal home oxygen use at 2L. Chronic diagnoses: Hypertension. Hyperlipidemia. Paroxysmal a-fib. Sick sinus syndrome with pacemaker placement. COPD. Vitamin D deficiency. Hypothyroidism. Aortic valve stenosis with prosthetic valve replacement. CAD. Osteoarthritis. Rheumatoid arthritis. Anxiety. Cataracts. History of breast cancer. Patient is still having sputum production and cough with occasional difficulty breathing secondary to the RSV. Her respiratory failure has shown significant improvement however and she is essentially at baseline with bit extra effort to breathe. Her acute Illyrian is ongoing and she still has some recurrent thoughts that she being given the wrong medicines are that these are somehow toxic to her. She is very detail oriented and meticulous over her medications. One of the assistance from [place] is on hand and is attempting to defer her manic thinking. Will remain in acute care but may be able to transfer back over to [facility] if they can continue her chronic 2 L supportive oxygen on Friday - Physician Narrative Narrative: Date: 05/03/17 Time: 2012 Hospital Course Summary Disclaimer: The visit summary below is not to be considered part of the above Progress Note. Hospital Course: Plan - 05/02/17: Admit to observation from [facility] under the care of Dr. Hansen for further medical evaluation and treatment. Consult Dr. Garza for continued psychiatric cares given recent acute psychosis and delusions with increased anxiety. RSV positive on 05/01/17. Continue supplemental oxygen to maintain SAO2 >90%, weaning as able. Patient chronically uses 2L at night but no supplemental oxygen during day. Monitor closely on telemetry with continuous pulse oximetry. Continue respiratory cares including DuoNeb treatments and Pulmicort. Mucinex for mucolytic effect. Encourage incentive spirometry and acapella. Continue prednisone 40mg daily - initiated on 05/02/17 - for pulmonary inflammation. Monitor closely for increased agitation and delirium. Sputum culture on 05/01/17 revealed M. catarrhalis. Patient remains afebrile without leukocytosis. Will continue to hold of initiation of antibiotics. Monitor closely for signs of worsening condition. Severe CHF with EF 20%. Monitor daily weight and urinary output closely. History of hypertension with recent low blood pressure. Will decrease home Coreg from 12.5mg to 6.25mg BID. Hold if systolic pressure <90. Will hold off on IV fluids given patient's severe CHF. Patient previously on FR 1200cc/day established prior to admission. Given hypernatremia (Na 145), will increase FR to 1500cc/day. SCDs for DVT prophylaxis. Patient is not a candidate for anticoagulation given recent SAH. Upon discharge, her care will be returned to her PCP.
[2017-05-03] MEDS: MIRTAZAPINE 15 MG TABLET PO SCH (22:02)
[2017-05-03] MEDS: LORazepam 0.5 MG TABLET PO SCH (22:02)
[2017-05-03] MEDS: QUETIAPINE 25 MG TABLET PO SCH (22:02)
[2017-05-04] MEDS: LEVOTHYROXINE 100 MCG TABLET PO SCH (05:53)
[2017-05-04] MEDS: LISINOPRIL 2.5 MG TABLET PO SCH (09:27)
[2017-05-04] MEDS: PredniSONE 20 MG TABLET PO SCH (09:28)
[2017-05-04] MEDS: GUAIFENESIN LA 600 MG TABLET PO SCH ×2 (09:28→22:00)
[2017-05-04] MEDS: CARVEDILOL 6.25 MG TABLET PO SCH ×2 (09:28→17:35)
[2017-05-04] MEDS: AMIODARONE 200 MG TABLET PO SCH (09:28)
[2017-05-04] MEDS: FUROSEMIDE 40 MG TABLET PO SCH ×2 (09:28→12:41)
[2017-05-04] MEDS: MAGNESIUM OXIDE 400 MG TABLET PO SCH (09:28)
[2017-05-04] MEDS: DOCUSATE SODIUM 100 MG CAPSULE PO PRN (09:29)
[2017-05-04] MEDS: POLYETHYL GLYCOL 3350 17gm PACKET PO SCH ×2 (09:29→22:04)
[2017-05-04] MEDS: ALBUTEROL/IPRATROPIUM 2.5mg-0.5mg/3ml NEB AEROSOL SCH ×4 (09:48→22:41)
[2017-05-04] MEDS: BUDESONIDE INH.SOLN 0.5mg/2ml NEB AEROSOL SCH ×2 (12:02→22:42)
--- NOTE | 2017-05-04 14:10 | Progress Note ---
- Date 05/04/17 Subjective: Patient is seen sitting in her room. She reviews her entire recent past medical history with me. She is most concerned that the people who are caring for her know what is going on with her. She is especially concerned about her fluid restriction. Even though the nurses reassure her that they're keeping track, she keeps track of it herself. She doesn't like the Seroquel, but thinks that Remeron has been good for her in the past. Dr. Garza did just recently start this. She continues to cough. Doesn't feel that it's worsening. Cough is loose but she can't get anything up. She is fatigued. She's had no temperature. Objective Vital signs: Temperature 96.8 F 05/04/17 13:53 Pulse Rate 103 H 05/04/17 13:53 Respiratory Rate 15 05/04/17 12:04 Blood Pressure 114/78 05/04/17 13:53 Pulse Oximetry 90 05/04/17 13:53 Height/Weight/BMI: Height 1.65 m Weight 52.5 kg Body Mass Index 19.1 - Constitutional Present: no acute distress, well developed, thin - Routine HEENT Exam Head: Present: normocephalic, atraumatic - Routine Respiratory Exam Present: wheezes Comments: Coarse breath sounds throughout. Productive sounding cough off and on throughout the visit. No conversational dyspnea. She is currently not on oxygen during my visit. - Routine Cardiovascular Exam Present: RRR, no murmur - Routine Abdominal Exam Present: soft, non distended, non tender - Routine Extremities Exam Present: no edema, normal capillary refill - Routine Skin Exam Present: dry, warm - Routine Neurological Exam Present: alert, oriented X3 - Routine Lymphatic Exam Lymphatic: Absent: adenopathy - Routine Psychiatric Exam Present: normal affect, cooperative Results - Labs CBC & Chem 7: 05/04/17 14:48 05/04/17 14:48 Assessment and Plan (1) Respiratory failure with hypoxia and hypercapnia Current visit: Yes Status: Acute (2) RSV (acute bronchiolitis due to respiratory syncytial virus) Current visit: Yes Status: Acute (3) Anxiety, generalized Current visit: Yes Status: Acute Assessment and Plan: Acute Assessment: Acute respiratory failure with hypoxia and hypercapnia. Acute RSV. Acute psychosis with delirium, increased agitation, anxiety and behaviors. S/P right femoral neck fracture with ORIF on 04/11/17 - Dr. Elizabeth. Traumatic SAH - 04/09/17 - CT on 04/28/17 showed resolution - Dr. Gaxiola. Hypernatremia (Na 145), present on admission, history of 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 Frequent falls with gait instability. 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 Odonnell. Nocturnal home oxygen use at 2L. Chronic diagnoses: Hypertension. Hyperlipidemia. Paroxysmal a-fib. Sick sinus syndrome with pacemaker placement. COPD. Vitamin D deficiency. Hypothyroidism. Aortic valve stenosis with prosthetic valve replacement. CAD. Osteoarthritis. Rheumatoid arthritis. Anxiety. Cataracts. History of breast cancer. Plan: Continue DuoNeb, Pulmicort and Acapella for respiratory symptoms. Decrease prednisone to 20 mg daily. Repeat chest x-ray and check labs to rule out developing pneumonia. Her respiratory symptoms seem strict strictly related to her RSV as opposed to CHF exacerbation. Her weight is stable and she has no edema. She is still requiring 1 L of oxygen to keep sats greater than 90%. Hope to discharge back to [facility] tomorrow if she remains stable as she would benefit from continued psychiatric management. Addendum by hospitalist: Seen and examined patient on same day as the above note Asia James nurse practitioner. Agree with history, physical, assessment and plan. Comprehensive physical findings correlate to the above note. Subjective: patient perseverates on her fluid restriction and medications Objective: anxious but no apparent medical distress. Moderate central sternal rhonchi but no lateral crackles on auscultation. S1 S2 +0 Assessment and plan: patient likely to transfer back to [facility] tomorrow. Minimal medical issues appear stable including occasional oxygen need which is her baseline Documented on [employer] speech to text. Efforts to correct speech recognition errors performed, but variation may exist - Physician Narrative Narrative: Date: 05/04/17 Time: 1406 Hospital Course Summary Disclaimer: The visit summary below is not to be considered part of the above Progress Note. Hospital Course: 05/02/17 Admit to observation from [facility] under the care of Dr. Hansen for further medical evaluation and treatment. Consult Dr. Garza for continued psychiatric cares given recent acute psychosis and delusions with increased anxiety. RSV positive on 05/01/17. Continue supplemental oxygen to maintain SAO2 >90%, weaning as able. Patient chronically uses 2L at night but no supplemental oxygen during day. Monitor closely on telemetry with continuous pulse oximetry. Continue respiratory cares including DuoNeb treatments and Pulmicort. Mucinex for mucolytic effect. Encourage incentive spirometry and acapella. Continue prednisone 40mg daily - initiated on 05/02/17 - for pulmonary inflammation. Monitor closely for increased agitation and delirium. Sputum culture on 05/01/17 revealed M. catarrhalis. Patient remains afebrile without leukocytosis. Will continue to hold of initiation of antibiotics. Monitor closely for signs of worsening condition. Severe CHF with EF 20%. Monitor daily weight and urinary output closely. History of hypertension with recent low blood pressure. Will decrease home Coreg from 12.5mg to 6.25mg BID. Hold if systolic pressure <90. Will hold off on IV fluids given patient's severe CHF. Patient previously on FR 1200cc/day established prior to admission. Given hypernatremia (Na 145), will increase FR to 1500cc/day. SCDs for DVT prophylaxis. Patient is not a candidate for anticoagulation given recent SAH. Upon discharge, her care will be returned to her PCP. 05/03/17 Patient is still having sputum production and cough with occasional difficulty breathing secondary to the RSV. Her respiratory failure has shown significant improvement however and she is essentially at baseline with bit extra effort to breathe. Her acute Illyrian is ongoing and she still has some recurrent thoughts that she being given the wrong medicines are that these are somehow toxic to her. She is very detail oriented and meticulous over her medications. One of the assistance from [place] is on hand and is attempting to defer her manic thinking. Will remain in acute care but may be able to transfer back over to [facility] if they can continue her chronic 2 L supportive oxygen on Friday05/04/17 Continue DuoNeb, Pulmicort and Acapella for respiratory symptoms. Decrease prednisone to 20 mg daily. Repeat chest x-ray and check labs to rule out developing pneumonia. Her respiratory symptoms seem strict strictly related to her RSV as opposed to CHF exacerbation. Her weight is stable and she has no edema. She is still requiring 1 L of oxygen to keep sats greater than 90%. Hope to discharge back to [facility] tomorrow if she remains stable as she would benefit from continued psychiatric management.
[2017-05-04] MEDS: LORazepam 0.5 MG TABLET PO SCH (22:00)
[2017-05-04] MEDS: MIRTAZAPINE 15 MG TABLET PO SCH (22:01)
[2017-05-04] MEDS: QUETIAPINE 25 MG TABLET PO SCH (22:02)
[2017-05-04] MEDS: MENTHOL COUGH DROPS (RICOLA) MM PRN (22:40)
[2017-05-04 23:41] VITALS: TEMP 96
[2017-05-05 02:09] VITALS: PULSE 87
[2017-05-05] MEDS: LEVOTHYROXINE 100 MCG TABLET PO SCH (06:13)
[2017-05-05] MEDS ORDERED: PredniSONE 20 MG TABLET PO SCH (08:00)
[2017-05-05 08:43] VITALS: BP 125/68; O2SAT 96
--- NOTE | 2017-05-05 08:46 | XRay Report ---
Indication: cough Procedure: XR chest 2V: Encounter: Subsequent Comparison: 05/02/2017 Technique: PA and lateral radiographs of the chest were obtained. Findings: Life support devices: Unchanged left pectoral dual-chamber pacer device. Lungs and airways: Normal lung volumes. No focal airspace consolidation. Normal pulmonary vasculature. Pleura: Unchanged small bilateral pleural effusions. No pneumothorax. Heart and mediastinum: Cardiomegaly. Aortic atherosclerosis Osseous structures and soft tissues: No acute osseous abnormality is seen. Postoperative changes of median sternotomy. Degenerative spondylosis of the visualized spine. Impression: Redemonstration of cardiomegaly with unchanged small pleural effusions, however no other overt congestive changes appreciated. .
[2017-05-05] MEDS: BUDESONIDE INH.SOLN 0.5mg/2ml NEB AEROSOL SCH (09:38)
[2017-05-05] MEDS: ALBUTEROL/IPRATROPIUM 2.5mg-0.5mg/3ml NEB AEROSOL SCH ×2 (09:39→13:42)
[2017-05-05] MEDS: LISINOPRIL 2.5 MG TABLET PO SCH (10:37)
[2017-05-05] MEDS: POLYETHYL GLYCOL 3350 17gm PACKET PO SCH (10:39)
[2017-05-05] MEDS: MAGNESIUM OXIDE 400 MG TABLET PO SCH (10:39)
[2017-05-05] MEDS: FUROSEMIDE 40 MG TABLET PO SCH ×2 (10:39→14:27)
[2017-05-05] MEDS: CARVEDILOL 6.25 MG TABLET PO SCH (10:39)
[2017-05-05] MEDS: GUAIFENESIN LA 600 MG TABLET PO SCH (10:40)
[2017-05-05] MEDS: AMIODARONE 200 MG TABLET PO SCH (10:40)
[2017-05-05] MEDS ORDERED: VICKS VAPORUB TP PRN (12:35)
--- NOTE | 2017-05-05 13:01 | Discharge Summary ---
Discharge Information Date of admission: 05/02/17 18:20 Anticipated date of discharge: 05/05/17 Attending Physician: Michael Mars MD Primary care physician: Berna Thurman MD Consults: 05/02/17 19:02 Case Management Consult [CONS] Routine Reason For Exam: Medical comorbidities 05/02/17 20:36 Physician Consult [CONS] Routine Consulting Provider: Lin Garza Reason For Exam: anxiety Ordering Provider has Notified Explosive Specialist: Yes - Discharge Diagnosis (1) Respiratory failure with hypoxia and hypercapnia Status: Acute (2) RSV (acute bronchiolitis due to respiratory syncytial virus) Status: Acute (3) Anxiety, generalized Status: Acute Acute Assessment: Acute respiratory failure with hypoxia and hypercapnia. Acute RSV. Acute psychosis with delirium, increased agitation, anxiety and behaviors. S/P right femoral neck fracture with ORIF on 04/11/17 - Dr. Elizabeth. Traumatic SAH - 04/09/17 - CT on 04/28/17 showed resolution - Dr. Gaxiola. Hypernatremia (Na 145), present on admission, history of 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 Frequent falls with gait instability. 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 Odonnell. Nocturnal home oxygen use at 2L. Chronic diagnoses: Hypertension. Hyperlipidemia. Paroxysmal a-fib. Sick sinus syndrome with pacemaker placement. COPD. Vitamin D deficiency. Hypothyroidism. Aortic valve stenosis with prosthetic valve replacement. CAD. Osteoarthritis. Rheumatoid arthritis. Anxiety. Cataracts. History of breast cancer. - Laboratory Labs: 05/05/17 04:36 05/05/17 04:36 - Radiology Radiology: Date of Exam: 05/04/17 Indication: cough Procedure: XR chest 2V: Findings: Life support devices: Unchanged left pectoral dual-chamber pacer device. Lungs and airways: Normal lung volumes. No focal airspace consolidation. Normal pulmonary vasculature. Pleura: Unchanged small bilateral pleural effusions. No pneumothorax. Heart and mediastinum: Cardiomegaly. Aortic atherosclerosis Osseous structures and soft tissues: No acute osseous abnormality is seen. Postoperative changes of median sternotomy. Degenerative spondylosis of the visualized spine. Impression: Redemonstration of cardiomegaly with unchanged small pleural effusions, however no other overt congestive changes appreciated. History of Present Illness HPI: Kerry Lutz is an 81-year-old resident at [facility] in [place] with an incredibly complex medical history who was directly admitted to [facility] on 05/01/17 for treatment of recently increased anxiety, agitation, insomnia and obsessing tendencies. It was reported that in January the patient started to experience more peripheral edema and insomnia believed to be due to orthopnea. At that time, spironolactone was added to her medications with some improvement. In early March, the patient's sodium started to trend down gradually. On approximately 03/13/17, the patient had a mechanical fall while feeding the birds at her home and suffered a head contusion without other injury. Repeat labs revealed that her sodium continued to trend down and was found to be 123 on 03/25/17. At that time, she was also noted to be more confused and asking repetitive questions, specifically regarding her care, which was unusual for her. She was then admitted to [facility] and placed on a fluid restriction which resulted in her sodium decreasing further to 120. She was then transferred to [facility] on 03/30/[address] Rice (nephrology) and diagnosed with SIADH. She was believed to be sodium depleted and salt tabs were initiated in addition to increased diuresis which resulted in improvement. She was discharged back to [facility] but was noted to have continued confusion per family and staff which appeared worse than previous as well as acute delusions. On 04/09, while at [facility], nursing reports that the patient "threw herself on the floor" due to delusions which resulted in a right hip fracture and SAH. She was initially admitted at [facility] and then transferred to [facility] for treatment. She underwent ORIF of her right hip on 04/11/[address] Gaxiola saw her regarding her new SAH but determined it was not surgical. She was taken off her chronic anticoagulation with Coumadin for her history of a-fib and valvular disease given her SAH. She seemed to be improving and was discharged back to [facility] on 04/14/17. On 04/22 she appeared to again have some increased swelling and followed up with Dr. Rice who discontinued her sodium tablets. She was then seen by her brim ironer hand, Dr. Odonnell who recommended increasing her Lasix to 80mg BID. The patient followed up with Dr. Thurman on 04/28/17 due to new cough and found to have new wheezing and was started on Xopenex. PCP believed wheezing was due to fluid overload, despite 17 pound weight loss since initiation of high dose Lasix and thus reduced her Lasix to 40mg BID. She reportedly continued to exhibit increased anxieties, insomnia and obsessing over her treatment plans, specifically her fluid restriction of 1500cc. Family became increasing concerned and felt the patient needed inpatient psychiatric care. She she was admitted to [facility] ([place], [place]) unit on 05/01/17 for further psychiatric evaluation and treatment. The hospitalist service saw her on arrival to [facility] ([place], [place]) on 05/01/17 and noted she appeared to be acutely short of breath. Respiratory panel was obtained at that time and was positive for RSV. Throughout the night on 05/01 and into 05/02, her respiratory function gradually declined, requiring the placement of continuous oxygen to maintain SAO2 >90%. Due to her acute respiratory failure with hypoxia and hypercapnia and acute RSV infection, it was decided she would benefit from being transferred to the medical unit. Treatment plan was discussed with Dr. Garza who is happy to continue psychiatric cares after transfer to medical. Patient's niece, Esther, was contacted and an extensive discussion regarding change in clinical status and recommendations for transfer to medical floor was had and she agreed with plan. All labs, medications, imaging results and recommendations were also discussed with the patient who openly agreed to moving to medical floor. She was admitted to observation status under the care of Dr. Hansen for further evaluation and close respiratory monitoring. Objective Vital signs: Temperature 96.0 F L 05/04/17 23:40 Pulse Rate 87 05/05/17 00:00 Respiratory Rate 14 05/05/17 09:41 Blood Pressure 125/68 05/05/17 07:00 Pulse Oximetry 96 05/05/17 09:41 Height/Weight/BMI: Height 1.65 m Weight 52 kg Body Mass Index 19.1 - Constitutional Present: no acute distress, well developed, thin - Routine HEENT Exam Head: Present: normocephalic, atraumatic - Routine Respiratory Exam Comments: mostly clear, occ slight wheeze heard. Loose sounding cough. - Routine Cardiovascular Exam Present: irregular rhythm - Routine Abdominal Exam Present: soft, non distended, non tender - Routine Extremities Exam Present: no edema, normal capillary refill - Routine Skin Exam Present: dry, warm - Routine Neurological Exam Present: alert, oriented X3 - Routine Lymphatic Exam Lymphatic: Absent: adenopathy - Routine Psychiatric Exam Present: normal affect, cooperative Hospital Course This is a general summary of the patient's hospital course. For more details refer to the complete medical record. Hospital course: 05/02/17 Admit to observation from [facility] under the care of Dr. Hansen for further medical evaluation and treatment. Consult Dr. Garza for continued psychiatric cares given recent acute psychosis and delusions with increased anxiety. RSV positive on 05/01/17. Continue supplemental oxygen to maintain SAO2 >90%, weaning as able. Patient chronically uses 2L at night but no supplemental oxygen during day. Monitor closely on telemetry with continuous pulse oximetry. Continue respiratory cares including DuoNeb treatments and Pulmicort. Mucinex for mucolytic effect. Encourage incentive spirometry and acapella. Continue prednisone 40mg daily - initiated on 05/02/17 - for pulmonary inflammation. Monitor closely for increased agitation and delirium. Sputum culture on 05/01/17 revealed M. catarrhalis. Patient remains afebrile without leukocytosis. Will continue to hold of initiation of antibiotics. Monitor closely for signs of worsening condition. Severe CHF with EF 20%. Monitor daily weight and urinary output closely. History of hypertension with recent low blood pressure. Will decrease home Coreg from 12.5mg to 6.25mg BID. Hold if systolic pressure <90. Will hold off on IV fluids given patient's severe CHF. Patient previously on FR 1200cc/day established prior to admission. Given hypernatremia (Na 145), will increase FR to 1500cc/day. SCDs for DVT prophylaxis. Patient is not a candidate for anticoagulation given recent SAH. Upon discharge, her care will be returned to her PCP. 05/03/17 Patient is still having sputum production and cough with occasional difficulty breathing secondary to the RSV. Her respiratory failure has shown significant improvement however and she is essentially at baseline with bit extra effort to breathe. Her acute Illyrian is ongoing and she still has some recurrent thoughts that she being given the wrong medicines are that these are somehow toxic to her. She is very detail oriented and meticulous over her medications. One of the assistance from [facility] is on hand and is attempting to defer her manic thinking. Will remain in acute care but may be able to transfer back over to [facility] ([place]) if they can continue her chronic 2 L supportive oxygen on Friday05/04/17 Continue DuoNeb, Pulmicort and Acapella for respiratory symptoms. Decrease prednisone to 20 mg daily. Repeat chest x-ray and check labs to rule out developing pneumonia. Her respiratory symptoms seem strict strictly related to her RSV as opposed to CHF exacerbation. Her weight is stable and she has no edema. She is still requiring 1 L of oxygen to keep sats greater than 90%. Hope to discharge back to [facility] ([place], [place]) tomorrow if she remains stable as she would benefit from continued psychiatric management. 05/05/[address] DC to [facility] ([place], [place]) today. Continue to wean O2. Currently 1.5L. Cough is less. Fatigue is improving. Continue Prednisone through tomorrow. Addendum: co-signature: Seen and examined patient on same day as the above note. Agree with summary, physical, assessment and plan. Comprehensive physical findings correlate to the above note. Subjective: patient only complaining of cough. No breathlessness chest pain, fevers chills or discomfort Objective: no apparent distress. Mobilizing with Walker. Some central sternal transmissions but lung martinez are clear throughout periphery. S1 S2 with occasional ectopic Assessment and plan. Patient appears medically fit to transfer back to [facility] ([place], [place]) when accepted for return. Patient's RSV is likely greater than a week old by this time and no further need for isolation precautions are warranted. Would recommend routine handwashing and covering up of cough. Patient will continue to need her chronic supplemental oxygen for her hypoxia as is her baseline. Documented on [employer] speech to text. Efforts to correct speech recognition errors performed, but variation may exist Time spent with patient: greater than 35 minutes Resuscitation Status: Do Not Resuscitate Discharge Plan - Discharge Disposition Discharge Date: 05/05/17 Disposition: 64 To [facility] *Condition: Stable Reason For Visit (Visit label in EMR): Hypoxia, resp failure - Discharge Medications *Discharge Medications: New Albuterol/Ipratropium [Duoneb] 3 ml AEROSOL RTQID each Budesonide Inhalation [Pulmicort Inhalation] 0.5 mg AEROSOL RTBID vial Guaifenesin LA [Mucinex LA] 600 mg PO BID tab Mirtazapine [Remeron] 7.5 mg PO HS tab Potassium Chloride [K-DUR 20 mEq Tablet] 20 meq PO BIDWM tab PredniSONE [Deltasone 20 mg] 20 mg PO WB tab Carvedilol [Coreg] 6.25 mg PO BIDWM tab Furosemide [Lasix] 40 mg PO 0800,1200 tab LORazepam [Ativan] 0.5 mg PO HS tab Vicks Vaporub 1 applicatio TP TID PRN jar PRN Reason: Congestion Continue Magnesium Oxide [Magox 400] 400 mg PO DAILY Calcium Citrate/Vitamin D3 [Calcium Citrate - Vit D Caplet] 1 each PO DAILY Cholecalciferol (Vitamin D3) [Vitamin D3] 1 tab PO DAILY PEG 3350 17gm PACKET [Miralax] 17 gm PO BID Haloperidol [Haldol] 0.5 mg PO Q6H PRN tab PRN Reason: Extreme Agitation Haloperidol Inj [Haldol] 0.5 mg IM Q6H PRN vial PRN Reason: Extreme Agitation Quetiapine [Seroquel] 25 mg PO HS Amiodarone [Pacerone] 200 mg PO DAILY Lisinopril [Zestril] 2.5 mg PO DAILY Levothyroxine Tab [Synthroid] 1 tab PO ACB Acetaminophen [Tylenol] 325 - 650 mg PO Q6HR PRN PRN Reason: Pain Milk of Magnesia [Mom] 30 ml PO DAILY PRN PRN Reason: Indigestion Menthol Cough Drops [Ricola Sf] 1 lozenge MM PRN PRN lozenge PRN Reason: Cough Discontinued Albuterol/Ipratropium [Duoneb] 3 ml AEROSOL RTQID each Albuterol/Ipratropium [Duoneb] 3 ml AEROSOL RTQID PRN each PRN Reason: dyspnea Budesonide Inhalation [Pulmicort Inhalation] 0.5 mg AEROSOL RTBID vial Furosemide [Lasix] 40 mg PO 0800,1200 tab LORazepam [Ativan] 0.5 mg PO Q6H PRN tab PRN Reason: Extreme Agitation LORazepam [Ativan] 1 mg PO HS tab PredniSONE [Deltasone 20 mg] 40 mg PO WB tab Carvedilol 12.5 mg PO BID Potassium Bicarbonate/Cit AC [Potassium 25 Meq Tablet Eff] 30 meq PO BID Docusate Sodium [Colace] 1 cap PO BID PRN PRN Reason: Constipation /Stool Softening Guaifenesin LA [Mucinex LA] 1,200 mg PO BID tab - Discharge Packet/Instructions *Diet: Regular diet with 1500ml fluid restriction and 2 Gm sodium restriction *Activity: as tolerated *Pain Management/Treatment: n/a *Wound Care: n/a *Expected Signs/Symptoms: continued improvement *Notify Physician if: you develop fever or increasing shortness of breath *During Business Hours Contact: your nurse in [facility] *After Business Hours Contact: your nurse in [facility] *Pending Lab/Results: No Pending Lab - IRU/GEN Discharge/Transfer - Referrals/Follow Up *Referrals/Follow Up: Berna Thurman MD [Family Provider] - (after DC from [facility]) - Patient Handouts Patient Handouts: Hypoxia (GEN) - Dismissal Complete Discharge Instructions are:: Complete Physician Narrative - Narrative Attestation Narrative: Date: 05/05/17 Time: 1257
[2017-05-05 13:45] VITALS: RESP 12
[2017-05-05] MEDS ORDERED: GUAIFENESIN LA 600 MG TABLET PO SCH (21:00)
== END 2017-05-05 15:00 ==
LOC: SUATTDRO 18:20 → MED 18:20 → INTOOBSV 18:20
PROVIDERS: ADMIT Hospitalist; ATTEND Family Medicine

== ENCOUNTER 2017-05-05 14:41 | Inpatient (IN) ==
[2017-05-05] MEDS ORDERED: LORazepam 0.5 MG TABLET PO PRN ×2 (15:45→15:58)
[2017-05-05] MEDS ORDERED: VICKS VAPORUB TP PRN (15:45)
[2017-05-05] MEDS ORDERED: HALOPERIDOL 0.5 MG TABLET PO PRN ×2 (15:45→15:58)
[2017-05-05] MEDS ORDERED: HALOPERIDOL 5 MG/ML INJECTION IM PRN ×2 (15:45→15:58)
[2017-05-05] MEDS ORDERED: INSULIN ASPART 100unit/ml INJECTION SQ PRN (16:16)
[2017-05-05 17:11] VITALS: BMI 18.7
[2017-05-05] MEDS: CARVEDILOL 6.25 MG TABLET PO SCH (18:06)
[2017-05-05] MEDS ORDERED: MIRTAZAPINE 15 MG TABLET PO SCH (21:00)
[2017-05-05] MEDS ORDERED: QUETIAPINE 25 MG TABLET PO SCH (21:00)
[2017-05-05] MEDS: BUDESONIDE INH.SOLN 0.5mg/2ml NEB AEROSOL SCH (21:05)
[2017-05-05] MEDS: LORazepam 0.5 MG TABLET PO SCH (22:04)
[2017-05-05] MEDS: MIRTAZAPINE 15 MG TABLET PO SCH (22:05)
[2017-05-05] MEDS: GUAIFENESIN LA 600 MG TABLET PO SCH (22:05)
[2017-05-05] MEDS: POLYETHYL GLYCOL 3350 17gm PACKET PO SCH (22:05)
[2017-05-06] MEDS ORDERED: PredniSONE 20 MG TABLET PO SCH (08:00)
[2017-05-06] MEDS: LEVOTHYROXINE 100 MCG TAB - PT OWN PO SCH (08:31)
[2017-05-06] MEDS: BUDESONIDE INH.SOLN 0.5mg/2ml NEB AEROSOL SCH ×2 (09:25→18:50)
[2017-05-06] MEDS: LISINOPRIL 2.5 MG TABLET PO SCH (10:40)
[2017-05-06] MEDS: AMIODARONE 200 MG TABLET PO SCH (10:42)
[2017-05-06] MEDS: FUROSEMIDE 40 MG TABLET PO SCH ×2 (10:42→12:36)
[2017-05-06] MEDS: MAGNESIUM OXIDE 400 MG TABLET PO SCH (10:42)
[2017-05-06] MEDS: CARVEDILOL 6.25 MG TABLET PO SCH ×2 (10:42→17:46)
[2017-05-06] MEDS: GUAIFENESIN LA 600 MG TABLET PO SCH ×2 (10:43→21:13)
[2017-05-06] MEDS: POLYETHYL GLYCOL 3350 17gm PACKET PO SCH (10:46)
--- NOTE | 2017-05-06 11:38 | History & Physical Report ---
History of Present Illness Date: 05/06/17 Chief complaint: increasing anxiety, obsessing tendencies HPI: Patient is an 81-year-old female who was originally admitted to the [facility] on the evening of 05/01/17 due to some paranoia and increasing anxiety/ obsessing thoughts. The following day, when evaluated, she was hypoxic and had a cough. She tested positive for RSV. Due to her hypoxia and respiratory compromise, she was transferred to the medical unit. During her stay on medical she was treated with steroids and breathing treatments and she gradually improved. She is on a fluid restriction of 1200 cc's for SIADH, but during her acute stay it was changed to 1500 cc as she was showing signs of dehydration. She was transferred back to [facility] yesterday for further psychiatric treatment. Her cough and hypoxia have improved. She was seen today at the breakfast table. She is no longer on oxygen. She reports it was hard to wake up this morning, and she does appear more fatigued than she had yesterday. She continues to be very concerned about keeping track of her fluid restriction. Review of Systems All systems PM: 10-point ROS was reviewed, no additional remarkable complaints except (has "had a hard time waking up today," decreased appetite, cough slowly improving) Past Medical History Medical History Frequent falls with gait instability. Traumatic SAH - 04/09/17. 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 History of CVA - patient denies. 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 Odonnell. Hypertension. Hyperlipidemia. Paroxysmal a-fib. Sick sinus syndrome with pacemaker placement. COPD. Vitamin D deficiency. Hypothyroidism. Aortic valve stenosis with prosthetic valve replacement. CAD. Osteoarthritis. Rheumatoid arthritis. Anxiety. Cataracts. History of breast cancer - tx with tamoxifen, radiation, mastectomy- last treatment was 08/1994; no active diagnosis of cancer per pt as of 03/10/17. Surgical History: Rt mastectomy, 1989. Lumbar fusion (hardware in place), 2004. Mitral valve repair (not replaced, but "ring" in place), 2009. Maze procdure, 2009. CABG x2 (no stents), 2009. CABG x2 (no stents), 2012. Pacemaker, most recently replaced in 2014. Salpingo-oophorectomy. T&A. D&C. Cataract(s) removed Family History: Family History (Last Reviewed 03/11/17 @ 15:17 by Karen Ulloa MD) Mother Breast cancer Hypertension Paternal Grandfather Colon cancer Sister Ovarian cancer Stroke Multiple sclerosis Father Heart attack Family History Updates: reviewed - Social History Smoking status: Former smoker Substance use type: does not use Alcohol intake frequency: does not drink Current occupational status: retired Social history: Berna Thurman, PCP Ortho - Dr. Oro. Trauma - Dr. Gaxiola. Cardio - Dr. Odonnell and Dr. Soares. Pulm - Dr. Severino Blanco. Medications Home Medications Medication Instructions Recorded Confirmed Type Acetaminophen [Tylenol] 325 - 650 mg PO Q6HR PRN 05/01/17 05/01/17 History Amiodarone [Pacerone] 200 mg PO DAILY 05/01/17 05/01/17 History Calcium Citrate/Vitamin D3 1 each PO DAILY 05/01/17 05/01/17 History [Calcium Citrate - Vit D Caplet] Cholecalciferol (Vitamin D3) 1 tab PO DAILY 05/01/17 05/01/17 History [Vitamin D3] Levothyroxine Tab [Synthroid] 1 tab PO ACB 05/01/17 05/01/17 History Lisinopril [Zestril] 2.5 mg PO DAILY 05/01/17 05/01/17 History Magnesium Oxide [Magox 400] 400 mg PO DAILY 05/01/17 05/01/17 History Milk of Magnesia [Mom] 30 ml PO DAILY PRN 05/01/17 05/01/17 History PEG 3350 17gm PACKET [Miralax] 17 gm PO BID 05/01/17 05/01/17 History Quetiapine [Seroquel] 25 mg PO HS 05/01/17 05/01/17 History Haloperidol Inj [Haldol] 0.5 mg IM Q6H PRN vial 05/02/17 Rx Haloperidol [Haldol] 0.5 mg PO Q6H PRN tab 05/02/17 Rx Menthol Cough Drops [Ricola Sf] 1 lozenge MM PRN PRN lozenge 05/02/17 Rx Albuterol/Ipratropium [Duoneb] 3 ml AEROSOL RTQID each 05/05/17 Rx Budesonide Inhalation [Pulmicort 0.5 mg AEROSOL RTBID vial 05/05/17 Rx Inhalation] Carvedilol [Coreg] 6.25 mg PO BIDWM tab 05/05/17 Rx Furosemide [Lasix] 40 mg PO 0800,1200 tab 05/05/17 Rx Guaifenesin LA [Mucinex LA] 600 mg PO BID tab 05/05/17 Rx LORazepam [Ativan] 0.5 mg PO HS tab 05/05/17 Rx Mirtazapine [Remeron] 7.5 mg PO HS tab 05/05/17 Rx Potassium Chloride [K-DUR 20 mEq 20 meq PO BIDWM tab 05/05/17 Rx Tablet] PredniSONE [Deltasone 20 mg] 20 mg PO WB tab 05/05/17 Rx Vicks Vaporub 1 applicatio TP TID PRN jar 05/05/17 Rx Allergies Allergy/AdvReac Type Severity Reaction Status Date / Time ciprofloxacin Allergy Unknown Verified 05/02/17 01:36 ezetimibe AdvReac Mild Myalgia Verified 05/02/17 01:36 Exam Vital Signs: Temperature 96.8 F 05/06/17 08:00 Pulse Rate 102 H 05/06/17 08:00 Respiratory Rate 18 05/06/17 10:34 Blood Pressure 111/77 05/06/17 08:00 Pulse Oximetry 91 05/06/17 10:34 Height/Weight/BMI: Height 1.65 m Weight 51 kg Body Mass Index 18.7 - Constitutional Present: no acute distress, well nourished, thin - Routine HEENT Exam Head: Present: normocephalic, atraumatic ENT: Present: mucous membranes moist, oropharynx clear - Routine Neck Exam Present: supple. Absent: lymphadenopathy, thyromegaly - Detailed Chest Wall Exam Comments: pacemaker L chest - Routine Respiratory Exam Present: CTA bilaterally. Absent: wheezes Comments: productive sounding cough - Routine Cardiovascular Exam Present: RRR, no murmur - Routine Abdominal Exam Present: soft, normoactive bowel sounds. Absent: tenderness, distended - Routine Extremities Exam Present: no edema, normal capillary refill - Routine Skin Exam Present: dry, warm Comments: bruising on R forehead - Routine Neurological Exam Present: alert, normal speech oriented to self and place. Is obsessing over her fluid restriction with nurse during breakfast - Routine Psychiatric Exam Present: cooperative Comments: appears tired Results - Labs CBC & Chem 7: 05/06/17 15:49 05/06/17 15:49 Assessment and Plan Assessment and Plan: Acute Assessment: Recent dx of RSV - improving Increased agitation, anxiety and behaviors. S/P right femoral neck fracture with ORIF on 04/11/17 - Dr. Elizabeth. Traumatic SAH - 04/09/17 - CT on 04/28/17 showed resolution - Dr. Gaxiola. History of 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 (Fluid restriction) Frequent falls with gait instability. 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 Odonnell. Nocturnal home oxygen use at 2L. Chronic diagnoses: Hypertension. Hyperlipidemia. Paroxysmal a-fib. Sick sinus syndrome with pacemaker placement. COPD Vitamin D deficiency. Hypothyroidism. Aortic valve stenosis with prosthetic valve replacement. CAD. Osteoarthritis. Rheumatoid arthritis. Anxiety. Cataracts. History of breast cancer. Plan Agree with admission to [facility] for further psychiatric evaluation and treatment. Consult PT/OT for continuation of therapies given recent ORIF to right hip on 04/11/17. She's currently on a fluid restriction of 1500 cc. She came in with a fluid restriction 1200 cc/d. It was increased due to her elevated sodium and dehydration associated with recent RSV illness. Will plan to resume 1200 cc restriction tomorrow. Continue home oxygen of 2 L overnight. Will continue her breathing treatments as long as she continues to have cough. Last dose of prednisone should be tomorrow. Encourage incentive spirometry. Repeat CBC and BMP today. Plan to repeat a BMP tomorrow to follow sodium. Measure I and O and daily weights given her CHF. Follow fall risk protocol given her frequent falls. She remains off anticoagulation given her recent subarachnoid hemorrhage and frequent falls. Care to return to Dr. Berna Thurman upon dismissal. Addendum to note by hospital physician: Seen and examined patient on same day as the above note. Agree with history, physical, assessment and plan by physician facilities assistant Asia James. Comprehensive physical findings correlate to the above note. Subjective: patient preoccupying complaints are again focused upon her medicine. Cough which is continuing from her medical side stay secondary to RSV. No other new symptoms Objective: no apparent medical distress. Alert and oriented. Significant course central sternal rhonchi but basis and periphery are still clear to auscultation. Cardiac vascular S1 is to know adventitious murmurs rubs or gallops. Assessment and plan: continue with psychiatric care. Paroxysmal atrial fibrillation prostatic valve replacement continue to be managed on current medication of anticoagulation and rate control medications. Hypothyroidism is within normal tolerance. Documented on Dragon speech to text. Efforts to correct speech recognition errors performed, but variation may exist - Physician Narrative Narrative: Date: 05/06/17 Time: 1135 Hospital Course Summary Disclaimer: The visit summary below is not to be considered part of the above Progress Note.
[2017-05-06] MEDS: ARIPiprazole 2 MG TABLET PO SCH (12:36)
--- NOTE | 2017-05-06 13:37 | 24 Hour Neuropsychiatic Eval ---
Date of Admission: 05/05/17 15:00 Chief complaint: "I'm really worried about this fluid restriction" History of Present Illness: Patient is an 81-year-old retired female who was re-admitted to the [facility] on 05/05/17 after being medically stabilized on medical floor. Patient was admitted for psychiatric evaluation/stabilization in regards to severe anxiety that is interfering with care. Patient alludes to severe anxiety and "obsessing" about her medical condition, particularly this fluid restriction. She cannot tell me specifically why she is worried (about others managing it, concern whether she cannot manage it, etc.). 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 She got a SLUMS last week and SLUMS on readmission to our unit. Per hospitalist: "Patient is an 81-year-old female who was originally admitted to the [facility] on the evening of 05/01/17 due to some paranoia and increasing anxiety/obsessing thoughts. The following day, when evaluated, she was hypoxic and had a cough. She tested positive for RSV. Due to her hypoxia and respiratory compromise, she was transferred to the medical unit. During her stay on medical she was treated with steroids and breathing treatments and she gradually improved. She is on a fluid restriction of 1200 cc's for SIADH, but during her acute stay it was changed to 1500 cc as she was showing signs of dehydration. She was transferred back to [facility] yesterday for further psychiatric treatment. Her cough and hypoxia have improved. She was seen today at the breakfast table. She is no longer on oxygen. She reports it was hard to wake up this morning, and she does appear more fatigued than she had yesterday. She continues to be very concerned about keeping track of her fluid restriction. " Patient has a friend Nilam with her during interview today. She reports that her mood "varies" but denies SI, HI, AVH. Patient is quite ruminative and perseverates on medical concerns despite reassurance. She reports mirtazapine has been helpful in the past and given her "moments of clarity" but she did not like how Paxil made her felt. Discussed risks/benefits of trial of low-dose Abilify, which patient consented to. [facility] Patient Stated Medical History Cerebrovascular Accident Yes Congestive Heart Failure Yes Other Cardiology Yes: AFIB Osteoarthritis Yes Panic Disorder No Clinic Medical History (Last Reviewed 03/11/17 @ 15:17 by Karen Ulloa MD) Rheumatoid arthritis (Chronic Medical) Osteoarthritis (Chronic Medical) Bone disorder (Acute Medical) Muscle disorder (Acute Medical) Anxiety (Resolved Medical) Cataract (Resolved Medical) Thyroid disease (Chronic Medical) Breast cancer (Inactive Medical) tx was tamoxifen, radiation, and mastectomy; last treatment was 08/1994; no active dx of cancer per pt as of 03/10/17 CAD (coronary artery disease) (Chronic Medical) Congestive heart failure (Chronic Medical) Atrial fibrillation (Chronic Medical) Surgical History: Rt mastectomy, 1989. Lumbar fusion (hardware in place), 2004. Mitral valve repair (not replaced, but "ring" in place), 2009. Maze procdure, 2009. CABG x2 (no stents), 2009. CABG x2 (no stents), 2012. Pacemaker, most recently replaced in 2014. Salpingo-oophorectomy. T&A. D&C. Cataract(s) removed Family History: Family History (Last Reviewed 03/11/17 @ 15:17 by Karen Ulloa MD) Mother Breast cancer Hypertension Paternal Grandfather Colon cancer Sister Ovarian cancer Stroke Multiple sclerosis Father Heart attack Family History Updates: reviewed - Social History Smoking status: Former smoker Substance use type: does not use Alcohol intake frequency: does not drink Housing: long-term Household members: none Current occupational status: retired Does patient use chewing tobacco?: No Current residence: [place] Social history: Strengths: able to communicate well verbally, high-functioning premorbidly, SLUMS 25/30 Review of Systems All systems: reviewed and no additional remarkable complaints except as stated - Constitutional Constitutional: Present: fatigue, weakness - EENMT Eyes: Present: change in vision (after brain bleed) - Psychiatric Psychiatric: Present: as per HPI, abnormal sleep pattern, anxiety Mental Status Exam Vitals: Last Vital Signs Temp 96.8 F 05/06/17 08:00 Pulse 102 H 05/06/17 08:00 Resp 18 05/06/17 10:34 BP 111/77 05/06/17 08:00 Pulse Ox 91 05/06/17 10:34 Height: 1.65 m Weight: 51 kg - Mental Status Exam Muscle Strength/Tone: Weak Dressing: Casual Grooming: Fair Attitude: Cooperative Motor Activity: Retardation Eye Contact: Good Speech: Normal Volume: Normal Rhythm: Appropriate Rhythm Sensory: Alert Orientation: Oriented to person, Oriented to place, Oriented to time (1 day off) Mood: Anxious Affect: Anxious Rate of Thoughts: Appropriate Rate Thought Organization: Circumstantial, Perseverations (on fluid restriction, health concerns) Associations: Intact Abstract Reasoning: Poor abstract reasoning Thought Content: Ruminations, Somatic Concerns Perception/Psychotic: Perception Normal Fund of Knowledge: Other (SLUMS /) Suicidal Ideation: Denies Homicidal Ideation: Denies Insight: Limited Judgement: Limited Impulse Control: Other (Limited) - Laboratory Laboratory Results - last 24 hr 05/05/17 05/05/17 17:18 20:14 Glucometer 98 173 Assessment and Plan (1) Anxiety, generalized Current visit: No Status: Acute (2) Neurocognitive disorder Current visit: No Status: Acute Other medical comorbidities: Recent dx of RSV - improving S/P right femoral neck fracture with ORIF on 04/11/17 - Dr. Elizabeth. Traumatic SAH - 04/09/17 - CT on 04/28/17 showed resolution - Dr. Gaxiola. History of 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 (Fluid restriction) Frequent falls with gait instability. 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 Odonnell. Nocturnal home oxygen use at 2L. Chronic diagnoses: Hypertension. Hyperlipidemia. Paroxysmal a-fib. Sick sinus syndrome with pacemaker placement. COPD Vitamin D deficiency. Hypothyroidism. Aortic valve stenosis with prosthetic valve replacement. CAD. Osteoarthritis. Rheumatoid arthritis. Anxiety. Cataracts. History of breast cancer. Continue psychiatric evaluation and stabilization. Maintain safety and elopement precautions. On 05/05, discontinued Seroquel and increased mirtazapine to 15mg PO q HS. Today, after discussion of risks/benefits, started Abilify 1mg PO q AM to target perseverations, severe anxiety. QTc WNL on recent EKG. Monitor mood, behavior and response to treatment.
[2017-05-06] MEDS ORDERED: BENZOCAINE/MENTHOL SORE THROAT LOZENGE MM PRN (16:11)
[2017-05-06] MEDS: ALBUTEROL/IPRATROPIUM 2.5mg-0.5mg/3ml NEB AEROSOL PRN (18:50)
[2017-05-06] MEDS: MENTHOL COUGH DROPS (RICOLA) MM PRN (19:50)
[2017-05-06] MEDS: LORazepam 0.5 MG TABLET PO SCH (21:12)
[2017-05-06] MEDS: MIRTAZAPINE 15 MG TABLET PO SCH (21:13)
[2017-05-07] MEDS: POLYETHYL GLYCOL 3350 17gm PACKET PO SCH ×3 (00:15→21:55)
[2017-05-07] MEDS: LEVOTHYROXINE 100 MCG TAB - PT OWN PO SCH (06:08)
[2017-05-07] MEDS: ALBUTEROL/IPRATROPIUM 2.5mg-0.5mg/3ml NEB AEROSOL PRN ×2 (06:55→18:40)
[2017-05-07] MEDS: BUDESONIDE INH.SOLN 0.5mg/2ml NEB AEROSOL SCH ×2 (06:55→18:40)
[2017-05-07] MEDS: FUROSEMIDE 40 MG TABLET PO SCH ×2 (08:04→12:02)
[2017-05-07] MEDS: CARVEDILOL 6.25 MG TABLET PO SCH ×2 (08:04→17:52)
[2017-05-07] MEDS: LISINOPRIL 2.5 MG TABLET PO SCH (08:05)
[2017-05-07] MEDS: MAGNESIUM OXIDE 400 MG TABLET PO SCH (08:05)
[2017-05-07] MEDS: ARIPiprazole 2 MG TABLET PO SCH (08:05)
[2017-05-07] MEDS: AMIODARONE 200 MG TABLET PO SCH (08:05)
[2017-05-07] MEDS: GUAIFENESIN LA 600 MG TABLET PO SCH ×2 (08:05→21:54)
--- NOTE | 2017-05-07 13:31 | Progress Note ---
- Date 05/07/17 Subjective: Kerry is seen while sleeping in her room. She arouses briefly with soft touch and voice stimuli but quickly falls back to sleep. Breathing easily on 2L NC which is her baseline for when sleeping. Nursing notes reviewed. She continues to have some anxiety but overall seems to be doing better. Labs on 05/06/17 revealed new leukocytosis (WBC 11.9). CO2 remains elevated at 42. Blood sugars are staple. Appetite is stable and urinary output is adequate. Sodium stable at 143. Objective Vital signs: Temperature 97.4 F 05/07/17 08:00 Pulse Rate 85 05/07/17 08:00 Respiratory Rate 18 05/07/17 08:00 Blood Pressure 90/67 05/07/17 08:00 Pulse Oximetry 90 05/07/17 08:00 Height/Weight/BMI: Height 5 ft 5 in Weight 110 lb 10.753 oz Body Mass Index 18.7 Comments: Patient sleeping on exam. - Constitutional Present: no acute distress, cooperative - Routine HEENT Exam Head: Present: normocephalic, atraumatic (prior bruising healing) ENT: Present: mucous membranes dry - Routine Respiratory Exam Absent: respiratory distress Comments: course breath sounds bilaterally; breathing easily on 2L NC while sleeping. - Routine Cardiovascular Exam Present: S1, S2 - Routine Abdominal Exam Present: soft, normoactive bowel sounds, non distended, non tender - Routine Extremities Exam Present: edema - Routine Back/Spine/Pelvis Exam Back/Spine: Present: kyphosis - Routine Skin Exam Present: dry, warm. Absent: jaundice Comments: afebrile. - Routine Neurological Exam sleeping - unable to assess. - Routine Lymphatic Exam Lymphatic: Absent: lymphedema - Routine Psychiatric Exam Present: cooperative Results - Labs CBC & Chem 7: 05/06/17 15:49 05/07/17 06:26 Assessment and Plan Assessment and Plan: Acute Assessment: Recent dx of RSV - improving Increased agitation, anxiety and behaviors. S/P right femoral neck fracture with ORIF on 04/11/17 - Dr. Elizabeth. Traumatic SAH - 04/09/17 - CT on 04/28/17 showed resolution - Dr. Gaxiola. History of 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 (Fluid restriction) Frequent falls with gait instability. 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 Odonnell. Nocturnal home oxygen use at 2L. Chronic diagnoses: Hypertension. Hyperlipidemia. Paroxysmal a-fib. Sick sinus syndrome with pacemaker placement. COPD Vitamin D deficiency. Hypothyroidism. Aortic valve stenosis with prosthetic valve replacement. CAD. Osteoarthritis. Rheumatoid arthritis. Anxiety. Cataracts. History of breast cancer. Plan - 05/07/17 Continue psychiatric care. Continue to provide safe and supportive environment. Awaiting PT/OT recommendations. Continue home oxygen 2L at night. Oxygen as needed to maintain SAO2 >90%. Patient does not use day time oxygen at home. Currently on 1200cc fluid restriction. Monitor sodium. May be able to increase restriction to 1500. Continue her breathing treatments as long as she continues to have cough. Encourage incentive spirometry. Prednisone treatment complete. Repeat CBC and BMP in AM. New leukocytosis (WBC 11.9) on 05/06/17. Will repeat CXR in AM given recent RSV. Measure I and O and daily weights given her CHF. Follow fall risk protocol given her frequent falls. She remains off anticoagulation given her recent subarachnoid hemorrhage and frequent falls. DVT Prophylaxis: YNES Root Resuscitation Status: Do Not Resuscitate - Time spent with patient Time with patient PN: 25 minutes - Physician Narrative Physician: other (Dr. Mars) Narrative: Date: 05/07/17 Time: 1328 Hospital Course Summary Disclaimer: The visit summary below is not to be considered part of the above Progress Note. Hospital Course: Plan - 05/07/17 Continue psychiatric care. Continue to provide safe and supportive environment. Awaiting PT/OT recommendations. Continue home oxygen 2L at night. Oxygen as needed to maintain SAO2 >90%. Patient does not use day time oxygen at home. Currently on 1200cc fluid restriction. Monitor sodium. May be able to increase restriction to 1500. Continue her breathing treatments as long as she continues to have cough. Encourage incentive spirometry. Prednisone treatment complete. Repeat CBC and BMP in AM. New leukocytosis (WBC 11.9) on 05/06/17. Will repeat CXR in AM given recent RSV. Measure I and O and daily weights given her CHF. Follow fall risk protocol given her frequent falls. She remains off anticoagulation given her recent subarachnoid hemorrhage and frequent falls.
--- NOTE | 2017-05-07 14:50 | Neuropsych Progress Note ---
[facility] Subjective Date: 05/07/17 - Sujective/Severity of Illness Medications: Acetaminophen (Tylenol) 325 mg PO Q6HR PRN PRN Reason: Pain Albuterol/Ipratropium (Duoneb) 3 ml AEROSOL RTQID PRN Last Admin: 05/07/17 06:55 Dose: 3 ml Amiodarone HCl (Pacerone) 200 mg PO DAILY [facility] Last Admin: 05/07/17 08:05 Dose: 200 mg Aripiprazole (Abilify) 1 mg PO DAILY [facility] Last Admin: 05/07/17 08:05 Dose: 1 mg Benzocaine (Cepacol Sore Throat Lozenge) 1 lozenge MM PRN PRN PRN Reason: Sore throat Budesonide (Pulmicort Inhalation) 0.5 mg AEROSOL RTBID [facility] Last Admin: 05/07/17 06:55 Dose: 0.5 mg Camphor/Menthol/Eucalyptus (Vicks Vaporub) 1 applic TP TID PRN Carvedilol (Coreg) 6.25 mg PO BIDWM [facility] Last Admin: 05/07/17 08:04 Dose: 6.25 mg Furosemide (Lasix) 40 mg PO 0800,1200 [facility] Last Admin: 05/07/17 12:02 Dose: 40 mg Guaifenesin (Mucinex La) 600 mg PO BID [facility] Last Admin: 05/07/17 08:05 Dose: 600 mg Haloperidol (Haldol) 0.5 mg PO Q6H PRN PRN Reason: Extreme agitation Haloperidol (Haldol) 0.5 mg PO Q6H PRN PRN Reason: Extreme agitation Haloperidol Lactate (Haldol) 0.5 mg IM Q6H PRN PRN Reason: Extreme agitation Haloperidol Lactate (Haldol) 0.5 mg IM Q6H PRN PRN Reason: Extreme agitation Insulin Aspart (Novolog) 1 - 5 unit SQ SS PRN; Protocol PRN Reason: Hyperglycemia Last Admin: 05/06/17 21:18 Dose: 1 unit Levothyroxine Sodium (Synthroid) 100 mcg PO ACB [facility] Last Admin: 05/07/17 06:08 Dose: 100 mcg Lisinopril (Prinivil) 2.5 mg PO DAILY [facility] Last Admin: 05/07/17 08:05 Dose: 2.5 mg Lorazepam (Ativan) 0.5 mg PO Q6H PRN PRN Reason: Extreme agitation Lorazepam (Ativan) 0.5 mg PO [facility] Last Admin: 05/06/17 21:12 Dose: 0.5 mg Lorazepam (Ativan Inj) 0.5 mg IM Q6H PRN PRN Reason: Extreme agitation Lorazepam (Ativan) 0.5 mg PO Q6H PRN PRN Reason: Extreme agitation Lorazepam (Ativan Inj) 0.5 mg IM Q6H PRN PRN Reason: Extreme agitation Magnesium Hydroxide (Mom) 30 ml PO DAILY PRN PRN Reason: Indigestion Magnesium Oxide (Magox) 400 mg PO DAILY [facility] Last Admin: 05/07/17 08:05 Dose: 400 mg Menthol (Ricola Sf) 1 lozenge MM PRN PRN PRN Reason: Cough Mirtazapine (Remeron) 15 mg PO [facility] Last Admin: 05/06/17 21:13 Dose: 15 mg Polyethylene Glycol (Miralax) 17 gm PO BID [facility] Last Admin: 05/07/17 08:05 Dose: 17 gm Potassium Chloride (K-Dur 20 Meq Tablet) 20 meq PO BIDWM [facility] Last Admin: 05/07/17 08:05 Dose: 20 meq Subjective: Patient seen and chart reviewed. Case discussed with treatment team. On interview, patient is pleasant and is pleased that she was able to take a nap this morning. She reportedly slept >5 hours overnight as well though she tends to be ruminative about sleep and the anxiety likely interferes with the process. Patient denies any SI, HI or AVH. Patient denies any adverse side effects related to psychotropic medications and feels she is tolerating the Abilify well. Nursing staff report patient was less obsessive about the fluid restriction than previously. No other significant behavioral difficulties. Patient shared with SW that she has a spiritual problem and she would like to seek the guidance of a trusted investment advisor. Patient has been adherent with medications. Patient slept 5+ hours overnight. VSS. Patient is eating well. Psychotropic PRNs required in the past 24 hours: none. Start Time: 10:00 Stop Time: 10:20 Mental Status Exam Vitals: Last Vital Signs Temp 97.4 F 05/07/17 08:00 Pulse 85 05/07/17 08:00 Resp 18 05/07/17 08:00 BP 90/67 05/07/17 08:00 Pulse Ox 90 05/07/17 08:00 Height: 1.65 m Weight: 50.2 kg - Mental Status Exam Muscle Strength/Tone: Weak Dressing: Casual Grooming: Fair Attitude: Cooperative Motor Activity: Retardation Eye Contact: Good Speech: Normal Volume: Normal Rhythm: Appropriate Rhythm Orientation: Oriented to person, Oriented to place, Oriented to time (1 day off) Mood: Anxious Affect: Anxious Rate of Thoughts: Appropriate Rate Thought Organization: Circumstantial, Perseverations (on fluid restriction, health concerns, sleep, etc.) Associations: Intact Abstract Reasoning: Poor abstract reasoning Thought Content: Ruminations, Somatic Concerns Perception/Psychotic: Perception Normal Fund of Knowledge: Other (SLUMS ) Suicidal Ideation: Denies Homicidal Ideation: Denies Insight: Limited Judgement: Limited Impulse Control: Other (Limited) - Laboratory Result Diagrams: 05/06/17 15:49 05/07/17 06:26 Laboratory Results - last 24 hr 05/06/17 05/06/17 05/06/17 09:54 11:15 15:49 WBC 11.9 H RBC 4.40 Hgb 13.9 Hct 45.1 MCV 102.5 H MCH 31.6 MCHC 30.8 L RDW Std Deviation 56.3 H Plt Count 215 MPV 9.2 L Immature Gran % (Auto) Not performed Neut % (Auto) Not performed Lymph % (Auto) Not performed Treasure % (Auto) Not performed Eos % (Auto) Not performed Baso % (Auto) Not performed Neut # (Auto) Not performed Lymph # (Auto) Not performed Treasure # (Auto) Not performed Eos # (Auto) Not performed Baso # (Auto) Not performed Abs Immat Gran (auto) Not performed Neutrophils % (Manual) 91.0 H Lymphocytes % (Manual) 6.0 L Monocytes % (Manual) 3.0 Neutrophils # (Manual) 10.8 H Lymphocytes # (Manual) 0.7 L Monocytes # (Manual) 0.4 Anisocytosis 1+ RBC Morph Comment Abnormal Turbidity Sodium Potassium Chloride Carbon Dioxide Anion Gap BUN Creatinine GFR Calculation BUN/Creatinine Ratio Glucose Glucometer 174 155 Calculated Osmolality Calcium Icterus Index Specimen Hemolysis 05/06/17 05/06/17 05/06/17 15:49 17:01 21:11 WBC RBC Hgb Hct MCV MCH MCHC RDW Std Deviation Plt Count MPV Immature Gran % (Auto) Neut % (Auto) Lymph % (Auto) Treasure % (Auto) Eos % (Auto) Baso % (Auto) Neut # (Auto) Lymph # (Auto) Treasure # (Auto) Eos # (Auto) Baso # (Auto) Abs Immat Gran (auto) Neutrophils % (Manual) Lymphocytes % (Manual) Monocytes % (Manual) Neutrophils # (Manual) Lymphocytes # (Manual) Monocytes # (Manual) Anisocytosis RBC Morph Comment Turbidity < 20 Sodium 143 Potassium 4.3 Chloride 95 L Carbon Dioxide 41 H* Anion Gap 7 BUN 32.0 H Creatinine 0.9 D GFR Calculation 60 BUN/Creatinine Ratio 36 H Glucose 113 H Glucometer 130 167 Calculated Osmolality 283 H Calcium 9.3 Icterus Index < 2 Specimen Hemolysis < 15 05/07/17 05/07/17 05/07/17 06:16 06:26 11:47 WBC RBC Hgb Hct MCV MCH MCHC RDW Std Deviation Plt Count MPV Immature Gran % (Auto) Neut % (Auto) Lymph % (Auto) Treasure % (Auto) Eos % (Auto) Baso % (Auto) Neut # (Auto) Lymph # (Auto) Treasure # (Auto) Eos # (Auto) Baso # (Auto) Abs Immat Gran (auto) Neutrophils % (Manual) Lymphocytes % (Manual) Monocytes % (Manual) Neutrophils # (Manual) Lymphocytes # (Manual) Monocytes # (Manual) Anisocytosis RBC Morph Comment Turbidity < 20 Sodium 143 Potassium 4.8 Chloride 96 L Carbon Dioxide 42 H* Anion Gap 5 BUN 33.0 H Creatinine 0.8 GFR Calculation 69 BUN/Creatinine Ratio 41 H Glucose 91 Glucometer 97 103 Calculated Osmolality 282 H Calcium 9.0 Icterus Index < 2 Specimen Hemolysis < 15 Assessment and Plan (1) Anxiety, generalized Current visit: No Status: Acute (2) Neurocognitive disorder Problem details: Medical comorbiditites: Recent dx of RSV - improving S/P right femoral neck fracture with ORIF on 04/11/17 - Dr. Elizabeth. Traumatic SAH - 04/09/17 - CT on 04/28/17 showed resolution - Dr. Gaxiola. History of 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 (Fluid restriction) Frequent falls with gait instability. 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 Odonnell. Nocturnal home oxygen use at 2L. Chronic diagnoses: Hypertension. Hyperlipidemia. Paroxysmal a-fib. Sick sinus syndrome with pacemaker placement. COPD Vitamin D deficiency. Hypothyroidism. Aortic valve stenosis with prosthetic valve replacement. CAD. Osteoarthritis. Rheumatoid arthritis. Cataracts. History of breast cancer. Current visit: No Status: Acute Continue current care as Abilify was started on 05/06; monitor response and may consider increase on 05/08 if well-tolerated. Increase mirtazapine to 22.5mg PO q HS. Hospital Course Summary Disclaimer: The visit summary below is not to be considered part of the above Progress Note. Hospital Course: Plan - 05/07/17 Continue psychiatric care. Continue to provide safe and supportive environment. Awaiting PT/OT recommendations. Continue home oxygen 2L at night. Oxygen as needed to maintain SAO2 >90%. Patient does not use day time oxygen at home. Currently on 1200cc fluid restriction. Monitor sodium. May be able to increase restriction to 1500. Continue her breathing treatments as long as she continues to have cough. Encourage incentive spirometry. Prednisone treatment complete. Repeat CBC and BMP in AM. New leukocytosis (WBC 11.9) on 05/06/17. Will repeat CXR in AM given recent RSV. Measure I and O and daily weights given her CHF. Follow fall risk protocol given her frequent falls. She remains off anticoagulation given her recent subarachnoid hemorrhage and frequent falls. 05/06/17 Psych: Start Abilify 1mg PO daily. 05/07/17 Psych: Continue current care as Abilify was started on 05/06; monitor response and may consider increase on 05/08 if well-tolerated. Increase mirtazapine to 22.5mg PO q HS.
[2017-05-07] MEDS: MIRTAZAPINE 15 MG TABLET PO SCH (21:53)
[2017-05-07] MEDS: LORazepam 0.5 MG TABLET PO SCH (21:54)
[2017-05-07] MEDS: ACETAMINOPHEN 325 MG TABLET PO PRN (21:55)
[2017-05-08] MEDS: LEVOTHYROXINE 100 MCG TAB - PT OWN PO SCH (07:32)
[2017-05-08] MEDS: BUDESONIDE INH.SOLN 0.5mg/2ml NEB AEROSOL SCH ×2 (07:45→19:10)
[2017-05-08] MEDS: ALBUTEROL/IPRATROPIUM 2.5mg-0.5mg/3ml NEB AEROSOL PRN (07:45)
[2017-05-08] MEDS: POLYETHYL GLYCOL 3350 17gm PACKET PO SCH ×2 (08:14→22:46)
[2017-05-08] MEDS: ARIPiprazole 2 MG TABLET PO SCH (08:15)
[2017-05-08] MEDS: MAGNESIUM OXIDE 400 MG TABLET PO SCH (08:16)
[2017-05-08] MEDS: GUAIFENESIN LA 600 MG TABLET PO SCH ×3 (08:16→22:45)
[2017-05-08] MEDS: AMIODARONE 200 MG TABLET PO SCH (08:21)
[2017-05-08] MEDS: CARVEDILOL 6.25 MG TABLET PO SCH ×2 (08:22→17:54)
[2017-05-08] MEDS: FUROSEMIDE 40 MG TABLET PO SCH ×2 (09:55→13:41)
[2017-05-08] MEDS: LISINOPRIL 2.5 MG TABLET PO SCH (09:56)
--- NOTE | 2017-05-08 10:43 | Progress Note ---
- Date 05/08/17 Subjective: Kerry is doing fairly well, though continues to have a cough. She feels like it should be productive but nothing comes up. She reports having a chronic low BP, typically with systolic of about 100. She denies feeling weak, dizzy, or lightheaded. She has been ambulating through the halls with her walker to try to raise her BP. She denies SOA, chest pain or palpitations. She has been eating fairly well (though states portion sizes are too big for her) and drinks as much as she's allowed. She denies abdominal pain or n/v. Objective Vital signs: Temperature 96.8 F 05/08/17 08:00 Pulse Rate 80 05/08/17 08:00 Respiratory Rate 16 05/08/17 08:00 Blood Pressure 98/67 05/08/17 08:00 Pulse Oximetry 92 05/08/17 07:45 Height/Weight/BMI: Height 1.65 m Weight 50.2 kg Body Mass Index 18.7 - Constitutional Present: no acute distress, well nourished, well developed, thin - Routine HEENT Exam Head: Present: normocephalic Eye: Present: PERRL. Absent: conjunctival icterus, scleral injection ENT: Present: oropharynx clear - Routine Respiratory Exam Comments: coarse breath sounds b/l - Routine Cardiovascular Exam Present: RRR, S1, S2 - Routine Abdominal Exam Present: soft, normoactive bowel sounds, non distended, non tender - Routine Extremities Exam Present: edema (BLE) - Routine Musculoskeletal Exam Musculoskeletal: Present: moving extremities well - Routine Skin Exam Present: intact, dry, warm - Routine Neurological Exam Present: alert, oriented X3, normal speech - Routine Psychiatric Exam Present: normal affect, normal thought process, cooperative Results - Labs CBC & Chem 7: 05/08/17 07:28 05/08/17 07:28 Assessment and Plan Assessment and Plan: Acute Assessment: Recent dx of RSV - improving Increased agitation, anxiety and behaviors. Hypernatremia S/P right femoral neck fracture with ORIF on 04/11/17 - Dr. Elizabeth. Traumatic SAH - 04/09/17 - CT on 04/28/17 showed resolution - Dr. Gaxiola. Off anticoagulants. History of 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 (Fluid restriction) Frequent falls with gait instability. 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 Odonnell. Nocturnal home oxygen use at 2L. Chronic diagnoses: Hypertension. Hyperlipidemia. Paroxysmal a-fib. Sick sinus syndrome with pacemaker placement. COPD Vitamin D deficiency. Hypothyroidism. Aortic valve stenosis with prosthetic valve replacement. CAD. Osteoarthritis. Rheumatoid arthritis. Anxiety. Cataracts. History of breast cancer. Plan - 05/08/17 History of chronically low BP per pt report with SBP ~100 mmHg. Will hold lisinopril for now, cont Lasix Hypernatremia, elevated CO2 (41) -- recheck in am; may need to reduce dose of Lasix. Increase fluid restriction to 1500. Leukocytosis has resolved. Continue supportive care for RSV. Resuscitation Status: Do Not Resuscitate - Physician Narrative Narrative: Date: 05/08/17 Time: 1039 Hospital Course Summary Disclaimer: The visit summary below is not to be considered part of the above Progress Note. Hospital Course: Plan - 05/07/17 Continue psychiatric care. Continue to provide safe and supportive environment. Awaiting PT/OT recommendations. Continue home oxygen 2L at night. Oxygen as needed to maintain SAO2 >90%. Patient does not use day time oxygen at home. Currently on 1200cc fluid restriction. Monitor sodium. May be able to increase restriction to 1500. Continue her breathing treatments as long as she continues to have cough. Encourage incentive spirometry. Prednisone treatment complete. Repeat CBC and BMP in AM. New leukocytosis (WBC 11.9) on 05/06/17. Will repeat CXR in AM given recent RSV. Measure I and O and daily weights given her CHF. Follow fall risk protocol given her frequent falls. She remains off anticoagulation given her recent subarachnoid hemorrhage and frequent falls. 05/06/17 Psych: Start Abilify 1mg PO daily. 05/07/17 Psych: Continue current care as Abilify was started on 05/06; monitor response and may consider increase on 05/08 if well-tolerated. Increase mirtazapine to 22.5mg PO q HS. 05/08/17 History of chronically low BP per pt report with SBP ~100 mmHg. Will hold lisinopril for now, cont Lasix Hypernatremia, elevated CO2 (41) -- recheck in am; may need to reduce dose of Lasix. Increase fluid restriction to 1500. Leukocytosis has resolved. Continue supportive care for RSV.
[2017-05-08] MEDS: DOCUSATE SODIUM 100 MG CAPSULE PO SCH (13:41)
--- NOTE | 2017-05-08 16:40 | Neuropsych Progress Note ---
[facility] Subjective Date: 05/08/17 - Sujective/Severity of Illness Medications: Acetaminophen (Tylenol) 325 mg PO Q6HR PRN PRN Reason: Pain Last Admin: 05/07/17 21:55 Dose: 325 mg Albuterol/Ipratropium (Duoneb) 3 ml AEROSOL RTQID PRN Last Admin: 05/08/17 07:45 Dose: 3 ml Amiodarone HCl (Pacerone) 200 mg PO DAILY [facility] Last Admin: 05/08/17 08:21 Dose: 200 mg Aripiprazole (Abilify) 1 mg PO DAILY [facility] Last Admin: 05/08/17 08:15 Dose: 1 mg Benzocaine (Cepacol Sore Throat Lozenge) 1 lozenge MM PRN PRN PRN Reason: Sore throat Budesonide (Pulmicort Inhalation) 0.5 mg AEROSOL RTBID [facility] Last Admin: 05/08/17 07:45 Dose: 0.5 mg Camphor/Menthol/Eucalyptus (Vicks Vaporub) 1 applic TP TID PRN Carvedilol (Coreg) 6.25 mg PO BIDWM [facility] Last Admin: 05/08/17 08:22 Dose: 6.25 mg Docusate Sodium (Colace) 100 mg PO DAILY [facility] Last Admin: 05/08/17 13:41 Dose: 100 mg Furosemide (Lasix) 40 mg PO 0800,1200 [facility] Last Admin: 05/08/17 13:41 Dose: 40 mg Guaifenesin (Mucinex La) 600 mg PO BID [facility] Last Admin: 05/08/17 08:16 Dose: 600 mg Haloperidol (Haldol) 0.5 mg PO Q6H PRN PRN Reason: Extreme agitation Haloperidol (Haldol) 0.5 mg PO Q6H PRN PRN Reason: Extreme agitation Haloperidol Lactate (Haldol) 0.5 mg IM Q6H PRN PRN Reason: Extreme agitation Haloperidol Lactate (Haldol) 0.5 mg IM Q6H PRN PRN Reason: Extreme agitation Insulin Aspart (Novolog) 1 - 5 unit SQ SS PRN; Protocol PRN Reason: Hyperglycemia Last Admin: 05/06/17 21:18 Dose: 1 unit Levothyroxine Sodium (Synthroid) 100 mcg PO ACB [facility] Last Admin: 05/08/17 07:32 Dose: 100 mcg Lisinopril (Prinivil) 2.5 mg PO DAILY [facility] Last Admin: 05/08/17 09:56 Dose: Not Given Lorazepam (Ativan) 0.5 mg PO Q6H PRN PRN Reason: Extreme agitation Lorazepam (Ativan) 0.5 mg PO HS [facility] Last Admin: 05/07/17 21:54 Dose: 0.5 mg Lorazepam (Ativan Inj) 0.5 mg IM Q6H PRN PRN Reason: Extreme agitation Lorazepam (Ativan Inj) 0.5 mg IM Q6H PRN PRN Reason: Extreme agitation Magnesium Hydroxide (Mom) 30 ml PO DAILY PRN PRN Reason: Indigestion Magnesium Oxide (Magox) 400 mg PO DAILY [facility] Last Admin: 05/08/17 08:16 Dose: 400 mg Menthol (Ricola Sf) 1 lozenge MM PRN PRN PRN Reason: Cough Mirtazapine (Remeron) 22.5 mg PO [facility] Last Admin: 05/07/17 21:53 Dose: 22.5 mg Polyethylene Glycol (Miralax) 17 gm PO BID [facility] Last Admin: 05/08/17 08:14 Dose: 17 gm Potassium Chloride (K-Dur 20 Meq Tablet) 20 meq PO BIDWM [facility] Last Admin: 05/08/17 08:16 Dose: 20 meq Subjective: Patient seen and chart reviewed. Case discussed with treatment team. On interview, patient is pleasant but anxious about various medical concerns ( when she sleeps). She says she is having anxiety about having anxiety. She alludes to having difficulty with a spiritual problem and I believe she is struggling with facing her own mortality. She asks my thoughts about looking her fear straight in the eye I told her that is helpful for some people. She also talked about other coping skills such as CBT, reading the Bible, positive psychology and affirmations - all of which may be helpful for her now as well. Patient denies any SI, HI or AVH. Patient denies any adverse side effects related to psychotropic medications and feels she is tolerating the Abilify well. Nursing staff report patient had brighter affect yesterday but reported anxiety prior to bedtime, though she could not say why. She slept ~9 hours overnight. Patient has been adherent with medications. VSS. Patient is eating well. Psychotropic PRNs required in the past 24 hours: none. Start Time: 10:20 Stop Time: 10:40 Mental Status Exam Vitals: Last Vital Signs Temp 96.7 F L 05/08/17 16:00 Pulse 78 05/08/17 16:00 Resp 16 05/08/17 16:00 BP 100/73 05/08/17 16:00 Pulse Ox 95 05/08/17 16:00 Height: 1.65 m Weight: 49.6 kg - Mental Status Exam Muscle Strength/Tone: Weak Dressing: Casual Grooming: Fair Attitude: Cooperative Motor Activity: Retardation Eye Contact: Good Speech: Normal Volume: Normal Rhythm: Appropriate Rhythm Orientation: Oriented to person, Oriented to place, Oriented to time (1 day off) Mood: Anxious Affect: Anxious (improved from previous) Rate of Thoughts: Appropriate Rate Thought Organization: Circumstantial, Perseverations (on health concerns, sleep , etc.) Associations: Intact Abstract Reasoning: Poor abstract reasoning Thought Content: Ruminations, Somatic Concerns Perception/Psychotic: Perception Normal Fund of Knowledge: Other (SLUMS /) Suicidal Ideation: Denies Homicidal Ideation: Denies Insight: Limited Judgement: Limited Impulse Control: Other (Limited) - Laboratory Result Diagrams: 05/08/17 07:28 05/08/17 07:28 Laboratory Results - last 24 hr 05/07/17 05/08/17 05/08/17 17:13 07:28 07:28 WBC 10.7 RBC 4.24 Hgb 13.6 Hct 43.7 MCV 103.1 H MCH 32.1 MCHC 31.1 RDW Std Deviation 57.7 H Plt Count 213 MPV 9.4 Immature Gran % (Auto) 0.2 Neut % (Auto) 78.9 H Lymph % (Auto) 14.9 L Summers % (Auto) 5.6 Eos % (Auto) 0.3 Baso % (Auto) 0.1 Neut # (Auto) 8.4 H Lymph # (Auto) 1.6 Summers # (Auto) 0.6 Eos # (Auto) 0.0 Baso # (Auto) 0.0 Abs Immat Gran (auto) 0.02 Turbidity < 20 Sodium 146 H Potassium 4.6 Chloride 95 L Carbon Dioxide 41 H* Anion Gap 10 BUN 30.0 H Creatinine 0.8 GFR Calculation 69 BUN/Creatinine Ratio 38 H Glucose 93 Glucometer 99 Calculated Osmolality 287 H Calcium 9.4 Icterus Index < 2 Specimen Hemolysis < 15 05/08/17 11:08 WBC RBC Hgb Hct MCV MCH MCHC RDW Std Deviation Plt Count MPV Immature Gran % (Auto) Neut % (Auto) Lymph % (Auto) Summers % (Auto) Eos % (Auto) Baso % (Auto) Neut # (Auto) Lymph # (Auto) Summers # (Auto) Eos # (Auto) Baso # (Auto) Abs Immat Gran (auto) Turbidity Sodium Potassium Chloride Carbon Dioxide Anion Gap BUN Creatinine GFR Calculation BUN/Creatinine Ratio Glucose Glucometer 113 Calculated Osmolality Calcium Icterus Index Specimen Hemolysis Assessment and Plan (1) Anxiety, generalized Current visit: No Status: Acute (2) Neurocognitive disorder Problem details: Medical comorbiditites: Recent dx of RSV - improving S/P right femoral neck fracture with ORIF on 04/11/17 - Dr. Elizabeth. Traumatic SAH - 04/09/17 - CT on 04/28/17 showed resolution - Dr. Gaxiola. History of 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 (Fluid restriction) Frequent falls with gait instability. 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 Odonnell. Nocturnal home oxygen use at 2L. Chronic diagnoses: Hypertension. Hyperlipidemia. Paroxysmal a-fib. Sick sinus syndrome with pacemaker placement. COPD Vitamin D deficiency. Hypothyroidism. Aortic valve stenosis with prosthetic valve replacement. CAD. Osteoarthritis. Rheumatoid arthritis. Cataracts. History of breast cancer. Current visit: No Status: Acute Plan to increase Abilify to 2mg PO daily on 05/09 as I believe it has been helpful for mood/anxiety. Hospital Course Summary Disclaimer: The visit summary below is not to be considered part of the above Progress Note. Hospital Course: Plan - 05/07/17 Continue psychiatric care. Continue to provide safe and supportive environment. Awaiting PT/OT recommendations. Continue home oxygen 2L at night. Oxygen as needed to maintain SAO2 >90%. Patient does not use day time oxygen at home. Currently on 1200cc fluid restriction. Monitor sodium. May be able to increase restriction to 1500. Continue her breathing treatments as long as she continues to have cough. Encourage incentive spirometry. Prednisone treatment complete. Repeat CBC and BMP in AM. New leukocytosis (WBC 11.9) on 05/06/17. Will repeat CXR in AM given recent RSV. Measure I and O and daily weights given her CHF. Follow fall risk protocol given her frequent falls. She remains off anticoagulation given her recent subarachnoid hemorrhage and frequent falls. 05/06/17 Psych: Start Abilify 1mg PO daily. 05/07/17 Psych: Continue current care as Abilify was started on 05/06; monitor response and may consider increase on 05/08 if well-tolerated. Increase mirtazapine to 22.5mg PO q HS. 05/08/17 History of chronically low BP per pt report with SBP ~100 mmHg. Will hold lisinopril for now, cont Lasix Hypernatremia, elevated CO2 (41) -- recheck in am; may need to reduce dose of Lasix. Increase fluid restriction to 1500. Leukocytosis has resolved. Continue supportive care for RSV. 05/09/17 Psych: Plan to increase Abilify to 2mg PO daily on 05/09 as I believe it has been helpful for mood/anxiety.
[2017-05-08] MEDS: MIRTAZAPINE 15 MG TABLET PO SCH (22:46)
[2017-05-08] MEDS: LORazepam 0.5 MG TABLET PO SCH (22:46)
[2017-05-08] MEDS: ACETAMINOPHEN 325 MG TABLET PO PRN (22:47)
[2017-05-09] MEDS: LEVOTHYROXINE 100 MCG TAB - PT OWN PO SCH (05:42)
[2017-05-09] MEDS: BUDESONIDE INH.SOLN 0.5mg/2ml NEB AEROSOL SCH ×2 (06:35→16:55)
[2017-05-09] MEDS: ALBUTEROL/IPRATROPIUM 2.5mg-0.5mg/3ml NEB AEROSOL PRN ×2 (06:35→16:55)
[2017-05-09] MEDS: FUROSEMIDE 40 MG TABLET PO SCH ×3 (06:45→11:55)
--- NOTE | 2017-05-09 07:36 | XRay Report ---
Indication: SOA/decreased sats PROCEDURE: XR chest 1V: Encounter: Initial Comparison: May 04, 2017 Findings: Mild increase in interstitial prominence since the prior study. Small pleural effusions are stable. No lobar consolidation. No pneumothorax. Heart size and mediastinal contours are stable. Prior CABG. Left pacemaker. Impression: Slight worsening in mild pulmonary edema. .
[2017-05-09] MEDS: CARVEDILOL 6.25 MG TABLET PO SCH ×2 (08:24→17:28)
[2017-05-09] MEDS: GUAIFENESIN LA 600 MG TABLET PO SCH ×3 (08:25→20:06)
[2017-05-09] MEDS: AMIODARONE 200 MG TABLET PO SCH (08:25)
[2017-05-09] MEDS: DOCUSATE SODIUM 100 MG CAPSULE PO SCH (08:25)
[2017-05-09] MEDS: ARIPiprazole 2 MG TABLET PO SCH (08:25)
[2017-05-09] MEDS: POLYETHYL GLYCOL 3350 17gm PACKET PO SCH ×2 (08:26→20:07)
[2017-05-09] MEDS: MAGNESIUM OXIDE 400 MG TABLET PO SCH (08:26)
[2017-05-09] MEDS ORDERED: LORazepam 0.5 MG TABLET PO SCH (13:18)
--- NOTE | 2017-05-09 13:45 | Neuropsych Progress Note ---
[facility] Subjective Date: 05/09/17 - Sujective/Severity of Illness Medications: Acetaminophen (Tylenol) 325 mg PO Q6HR PRN PRN Reason: Pain Last Admin: 05/08/17 22:47 Dose: 325 mg Albuterol/Ipratropium (Duoneb) 3 ml AEROSOL RTQID PRN Last Admin: 05/09/17 06:35 Dose: 3 ml Amiodarone HCl (Pacerone) 200 mg PO DAILY [facility] Last Admin: 05/09/17 08:25 Dose: 200 mg Aripiprazole (Abilify) 2 mg PO DAILY [facility] Last Admin: 05/09/17 08:25 Dose: 2 mg Benzocaine (Cepacol Sore Throat Lozenge) 1 lozenge MM PRN PRN PRN Reason: Sore throat Budesonide (Pulmicort Inhalation) 0.5 mg AEROSOL RTBID [facility] Last Admin: 05/09/17 06:35 Dose: 0.5 mg Camphor/Menthol/Eucalyptus (Vicks Vaporub) 1 applic TP TID PRN Carvedilol (Coreg) 6.25 mg PO BIDWM [facility] Last Admin: 05/09/17 08:24 Dose: 6.25 mg Docusate Sodium (Colace) 100 mg PO DAILY [facility] Last Admin: 05/09/17 08:25 Dose: 100 mg Furosemide (Lasix) 40 mg PO 0800,1200 [facility] Last Admin: 05/09/17 11:55 Dose: 40 mg Guaifenesin (Mucinex La) 600 mg PO BID [facility] Last Admin: 05/09/17 08:25 Dose: 600 mg Haloperidol (Haldol) 0.5 mg PO Q6H PRN PRN Reason: Extreme agitation Haloperidol (Haldol) 0.5 mg PO Q6H PRN PRN Reason: Extreme agitation Haloperidol Lactate (Haldol) 0.5 mg IM Q6H PRN PRN Reason: Extreme agitation Haloperidol Lactate (Haldol) 0.5 mg IM Q6H PRN PRN Reason: Extreme agitation Insulin Aspart (Novolog) 1 - 5 unit SQ SS PRN; Protocol PRN Reason: Hyperglycemia Last Admin: 05/06/17 21:18 Dose: 1 unit Levothyroxine Sodium (Synthroid) 100 mcg PO ACB [facility] Last Admin: 05/09/17 05:42 Dose: 100 mcg Lisinopril (Prinivil) 2.5 mg PO DAILY [facility] Last Admin: 05/08/17 09:56 Dose: Not Given Lorazepam (Ativan) 0.5 mg PO Q6H PRN PRN Reason: Extreme agitation Lorazepam (Ativan Inj) 0.5 mg IM Q6H PRN PRN Reason: Extreme agitation Lorazepam (Ativan Inj) 0.5 mg IM Q6H PRN PRN Reason: Extreme agitation Lorazepam (Ativan) 0.25 mg PO [facility] Magnesium Hydroxide (Mom) 30 ml PO DAILY PRN PRN Reason: Indigestion Magnesium Oxide (Magox) 400 mg PO DAILY [facility] Last Admin: 05/09/17 08:26 Dose: 400 mg Menthol (Ricola Sf) 1 lozenge MM PRN PRN PRN Reason: Cough Mirtazapine (Remeron) 22.5 mg PO HS [facility] Last Admin: 05/08/17 22:46 Dose: 22.5 mg Polyethylene Glycol (Miralax) 17 gm PO BID [facility] Last Admin: 05/09/17 08:26 Dose: 17 gm Potassium Chloride (K-Dur 20 Meq Tablet) 20 meq PO BIDWM [facility] Last Admin: 05/09/17 08:25 Dose: 20 meq Subjective: Patient seen and chart reviewed. Case discussed with treatment team. On interview, patient is pleasant and appears less anxious than she has previously. She says she has been napping and "trying to catch up on sleep" and I reassured her that this is okay. I worry that patient has unrealistic expectations for her energy level given chronic medical conditions. Her customer relations advisor is coming this afternoon and she is looking forward to speaking with her. Patient denies any SI, HI or AVH. Patient denies any adverse side effects related to psychotropic medications and feels she is tolerating the Abilify well. Nursing staff report patient is easier to reassure than she was upon admission though she has many questions about fluid restrictions, etc. and seems to have difficulty letting someone else manage it. She slept 5.5 hours overnight but had an episode of hypoxemia with O2 sats in high 80s overnight and O2 had to be increased. Patient has been adherent with medications. Patient is eating well. Psychotropic PRNs required in the past 24 hours: none. Start Time: 12:20 Stop Time: 12:40 Mental Status Exam Vitals: Last Vital Signs Temp 98.2 F 05/09/17 08:15 Pulse 75 05/09/17 08:15 Resp 14 05/09/17 08:15 BP 91/65 05/09/17 08:15 Pulse Ox 96 05/09/17 08:15 Height: 1.65 m Weight: 48.6 kg - Mental Status Exam Muscle Strength/Tone: Weak Dressing: Casual Grooming: Fair Attitude: Cooperative Motor Activity: Retardation Eye Contact: Good Speech: Normal Volume: Normal Rhythm: Appropriate Rhythm Orientation: Oriented to person, Oriented to place, Oriented to time (1 day off) Mood: Anxious (improved from admission) Affect: Anxious (improved from admission) Rate of Thoughts: Appropriate Rate Thought Organization: Circumstantial, Perseverations (on health concerns, sleep , etc.) Associations: Intact Abstract Reasoning: Poor abstract reasoning Thought Content: Ruminations, Somatic Concerns Perception/Psychotic: Perception Normal Language: Naming Intact Fund of Knowledge: Other (SLUMS ) Suicidal Ideation: Denies Homicidal Ideation: Denies Insight: Limited Judgement: Limited Impulse Control: Fair - Laboratory Result Diagrams: 05/08/17 07:28 05/09/17 07:17 Laboratory Results - last 24 hr 05/09/17 07:17 Turbidity < 20 Sodium 142 Potassium 4.4 Chloride 95 L Carbon Dioxide 42 H* Anion Gap 5 BUN 31.0 H Creatinine 0.8 GFR Calculation 69 BUN/Creatinine Ratio 39 H Glucose 100 Calculated Osmolality 280 Calcium 8.8 Magnesium 2.3 Icterus Index < 2 Specimen Hemolysis < 15 Assessment and Plan (1) Anxiety, generalized Current visit: No Status: Acute (2) Neurocognitive disorder Problem details: Medical comorbiditites: Recent dx of RSV - improving S/P right femoral neck fracture with ORIF on 04/11/17 - Dr. Elizabeth. Traumatic SAH - 04/09/17 - CT on 04/28/17 showed resolution - Dr. Gaxiola. History of 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 (Fluid restriction) Frequent falls with gait instability. 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 Odonnell. Nocturnal home oxygen use at 2L. Chronic diagnoses: Hypertension. Hyperlipidemia. Paroxysmal a-fib. Sick sinus syndrome with pacemaker placement. COPD Vitamin D deficiency. Hypothyroidism. Aortic valve stenosis with prosthetic valve replacement. CAD. Osteoarthritis. Rheumatoid arthritis. Cataracts. History of breast cancer. Current visit: No Status: Acute Plan to decrease HS Ativan to 0.25mg PO q HS and discontinue as patient has had some overnight hypoxemia. Abilify increased to 2mg this morning - seems to be tolerating well. Monitor mood, behavior and response over the weekend. Hospital Course Summary Disclaimer: The visit summary below is not to be considered part of the above Progress Note. Hospital Course: Plan - 05/07/17 Continue psychiatric care. Continue to provide safe and supportive environment. Awaiting PT/OT recommendations. Continue home oxygen 2L at night. Oxygen as needed to maintain SAO2 >90%. Patient does not use day time oxygen at home. Currently on 1200cc fluid restriction. Monitor sodium. May be able to increase restriction to 1500. Continue her breathing treatments as long as she continues to have cough. Encourage incentive spirometry. Prednisone treatment complete. Repeat CBC and BMP in AM. New leukocytosis (WBC 11.9) on 05/06/17. Will repeat CXR in AM given recent RSV. Measure I and O and daily weights given her CHF. Follow fall risk protocol given her frequent falls. She remains off anticoagulation given her recent subarachnoid hemorrhage and frequent falls. 05/06/17 Psych: Start Abilify 1mg PO daily. 05/07/17 Psych: Continue current care as Abilify was started on 05/06; monitor response and may consider increase on 05/08 if well-tolerated. Increase mirtazapine to 22.5mg PO q HS. 05/08/17 History of chronically low BP per pt report with SBP ~100 mmHg. Will hold lisinopril for now, cont Lasix Hypernatremia, elevated CO2 (41) -- recheck in am; may need to reduce dose of Lasix. Increase fluid restriction to 1500. Leukocytosis has resolved. Continue supportive care for RSV. 05/08/17 Psych: Plan to increase Abilify to 2mg PO daily on 05/09 as I believe it has been helpful for mood/anxiety. 05/09/17 Psych: Plan to decrease HS Ativan to 0.25mg PO q HS and discontinue as patient has had some overnight hypoxemia. Abilify increased to 2mg this morning - seems to be tolerating well. Monitor mood, behavior and response over the weekend.
[2017-05-09] MEDS: MIRTAZAPINE 15 MG TABLET PO SCH (20:38)
[2017-05-09] MEDS: ACETAMINOPHEN 325 MG TABLET PO PRN (20:56)
[2017-05-10] MEDS: ACETAMINOPHEN 325 MG TABLET PO PRN (06:27)
[2017-05-10] MEDS: ALBUTEROL/IPRATROPIUM 2.5mg-0.5mg/3ml NEB AEROSOL PRN (08:05)
[2017-05-10] MEDS: BUDESONIDE INH.SOLN 0.5mg/2ml NEB AEROSOL SCH ×2 (08:05→19:25)
[2017-05-10] MEDS: GUAIFENESIN LA 600 MG TABLET PO SCH ×3 (08:35→21:19)
[2017-05-10] MEDS: FUROSEMIDE 40 MG TABLET PO SCH ×2 (08:35→11:57)
[2017-05-10] MEDS: CARVEDILOL 6.25 MG TABLET PO SCH ×2 (08:35→17:18)
[2017-05-10] MEDS: ARIPiprazole 2 MG TABLET PO SCH (08:35)
[2017-05-10] MEDS: LEVOTHYROXINE 100 MCG TAB - PT OWN PO SCH (08:35)
[2017-05-10] MEDS: MAGNESIUM OXIDE 400 MG TABLET PO SCH (08:35)
[2017-05-10] MEDS: AMIODARONE 200 MG TABLET PO SCH (08:36)
[2017-05-10] MEDS: POLYETHYL GLYCOL 3350 17gm PACKET PO SCH ×2 (09:08→22:23)
[2017-05-10] MEDS: DOCUSATE SODIUM 100 MG CAPSULE PO SCH (09:08)
--- NOTE | 2017-05-10 10:34 | Neuropsych Progress Note ---
[facility] Subjective Date: 05/10/17 - Sujective/Severity of Illness Medications: Acetaminophen (Tylenol) 325 mg PO Q6HR PRN PRN Reason: Pain Last Admin: 05/10/17 06:27 Dose: 325 mg Albuterol/Ipratropium (Duoneb) 3 ml AEROSOL RTQID PRN Last Admin: 05/10/17 08:05 Dose: 3 ml Amiodarone HCl (Pacerone) 200 mg PO DAILY [facility] Last Admin: 05/10/17 08:36 Dose: 200 mg Aripiprazole (Abilify) 2 mg PO DAILY [facility] Last Admin: 05/10/17 08:35 Dose: 2 mg Benzocaine (Cepacol Sore Throat Lozenge) 1 lozenge MM PRN PRN PRN Reason: Sore throat Budesonide (Pulmicort Inhalation) 0.5 mg AEROSOL RTBID [facility] Last Admin: 05/10/17 08:05 Dose: 0.5 mg Camphor/Menthol/Eucalyptus (Vicks Vaporub) 1 applic TP TID PRN Carvedilol (Coreg) 6.25 mg PO BIDWM [facility] Last Admin: 05/10/17 08:35 Dose: 6.25 mg Docusate Sodium (Colace) 100 mg PO DAILY [facility] Last Admin: 05/10/17 09:08 Dose: 100 mg Furosemide (Lasix) 40 mg PO 0800,1200 [facility] Last Admin: 05/10/17 08:35 Dose: 40 mg Guaifenesin (Mucinex La) 600 mg PO BID [facility] Last Admin: 05/10/17 08:35 Dose: 600 mg Haloperidol (Haldol) 0.5 mg PO Q6H PRN PRN Reason: Extreme agitation Haloperidol (Haldol) 0.5 mg PO Q6H PRN PRN Reason: Extreme agitation Haloperidol Lactate (Haldol) 0.5 mg IM Q6H PRN PRN Reason: Extreme agitation Haloperidol Lactate (Haldol) 0.5 mg IM Q6H PRN PRN Reason: Extreme agitation Insulin Aspart (Novolog) 1 - 5 unit SQ SS PRN; Protocol PRN Reason: Hyperglycemia Last Admin: 05/06/17 21:18 Dose: 1 unit Levothyroxine Sodium (Synthroid) 100 mcg PO ACB [facility] Last Admin: 05/10/17 08:35 Dose: 100 mcg Lisinopril (Prinivil) 2.5 mg PO DAILY [facility] Last Admin: 05/08/17 09:56 Dose: Not Given Lorazepam (Ativan) 0.5 mg PO Q6H PRN PRN Reason: Extreme agitation Lorazepam (Ativan Inj) 0.5 mg IM Q6H PRN PRN Reason: Extreme agitation Lorazepam (Ativan Inj) 0.5 mg IM Q6H PRN PRN Reason: Extreme agitation Magnesium Hydroxide (Mom) 30 ml PO DAILY PRN PRN Reason: Indigestion Magnesium Oxide (Magox) 400 mg PO DAILY [facility] Last Admin: 05/10/17 08:35 Dose: 400 mg Menthol (Ricola Sf) 1 lozenge MM PRN PRN PRN Reason: Cough Mirtazapine (Remeron) 22.5 mg PO HS [facility] Last Admin: 05/09/17 20:38 Dose: 22.5 mg Polyethylene Glycol (Miralax) 17 gm PO BID [facility] Last Admin: 05/10/17 09:08 Dose: 17 gm Potassium Chloride (K-Dur 20 Meq Tablet) 20 meq PO BIDWM [facility] Last Admin: 05/10/17 08:35 Dose: 20 meq Subjective: Patient seen and chart reviewed. Nursing reports pt has been feeling ill and has had a temp and her oxygen level is falling at times. Otherwise pt is doing well. Sleeping well and no behaviors noted. On face to face the pt is seen resting in her room. She states she does not feel well and "cant get enough sleep". She reports her mood is stable and she voices no other concerns. Tolerating meds Start Time: 10:15 Stop Time: 10:30 Mental Status Exam Vitals: Last Vital Signs Temp 98.2 F 05/10/17 08:27 Pulse 92 05/10/17 07:31 Resp 16 05/10/17 08:29 BP 98/65 05/10/17 07:31 Pulse Ox 93 05/10/17 08:29 Height: 1.65 m Weight: 48.3 kg - Mental Status Exam Muscle Strength/Tone: Weak Dressing: Casual Grooming: Fair Attitude: Cooperative Motor Activity: Retardation Eye Contact: Good Speech: Normal Volume: Normal Rhythm: Appropriate Rhythm Orientation: Oriented to person, Oriented to place, Oriented to time (1 day off) Mood: Anxious (improved from admission) Rate of Thoughts: Appropriate Rate Thought Organization: Circumstantial, Perseverations (on health concerns, sleep , etc.) Associations: Intact Abstract Reasoning: Poor abstract reasoning Thought Content: Ruminations, Somatic Concerns Perception/Psychotic: Perception Normal Language: Naming Intact Fund of Knowledge: Other (SLUMS ) Suicidal Ideation: Denies Homicidal Ideation: Denies Insight: Limited Judgement: Limited Impulse Control: Fair - Laboratory Result Diagrams: 05/08/17 07:28 05/09/17 07:17 Assessment and Plan (1) Anxiety, generalized Current visit: No Status: Acute (2) Neurocognitive disorder Problem details: Medical comorbiditites: Recent dx of RSV - improving S/P right femoral neck fracture with ORIF on 04/11/17 - Dr. Elizabeth. Traumatic SAH - 04/09/17 - CT on 04/28/17 showed resolution - Dr. Gaxiola. History of 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 (Fluid restriction) Frequent falls with gait instability. 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 Odonnell. Nocturnal home oxygen use at 2L. Chronic diagnoses: Hypertension. Hyperlipidemia. Paroxysmal a-fib. Sick sinus syndrome with pacemaker placement. COPD Vitamin D deficiency. Hypothyroidism. Aortic valve stenosis with prosthetic valve replacement. CAD. Osteoarthritis. Rheumatoid arthritis. Cataracts. History of breast cancer. Current visit: No Status: Acute Hospital Course Summary Disclaimer: The visit summary below is not to be considered part of the above Progress Note. Hospital Course: Plan - 05/07/17 Continue psychiatric care. Continue to provide safe and supportive environment. Awaiting PT/OT recommendations. Continue home oxygen 2L at night. Oxygen as needed to maintain SAO2 >90%. Patient does not use day time oxygen at home. Currently on 1200cc fluid restriction. Monitor sodium. May be able to increase restriction to 1500. Continue her breathing treatments as long as she continues to have cough. Encourage incentive spirometry. Prednisone treatment complete. Repeat CBC and BMP in AM. New leukocytosis (WBC 11.9) on 05/06/17. Will repeat CXR in AM given recent RSV. Measure I and O and daily weights given her CHF. Follow fall risk protocol given her frequent falls. She remains off anticoagulation given her recent subarachnoid hemorrhage and frequent falls. 05/06/17 Psych: Start Abilify 1mg PO daily. 05/07/17 Psych: Continue current care as Abilify was started on 05/06; monitor response and may consider increase on 05/08 if well-tolerated. Increase mirtazapine to 22.5mg PO q HS. 05/08/17 History of chronically low BP per pt report with SBP ~100 mmHg. Will hold lisinopril for now, cont Lasix Hypernatremia, elevated CO2 (41) -- recheck in am; may need to reduce dose of Lasix. Increase fluid restriction to 1500. Leukocytosis has resolved. Continue supportive care for RSV. 05/08/17 Psych: Plan to increase Abilify to 2mg PO daily on 05/09 as I believe it has been helpful for mood/anxiety. 05/09/17 Psych: Plan to decrease HS Ativan to 0.25mg PO q HS and discontinue as patient has had some overnight hypoxemia. Abilify increased to 2mg this morning - seems to be tolerating well. Monitor mood, behavior and response over the weekend. 05/10/17 Psych- D/C HS Ativan
[2017-05-10] MEDS: MIRTAZAPINE 15 MG TABLET PO SCH (22:24)
[2017-05-11] MEDS: LEVOTHYROXINE 100 MCG TAB - PT OWN PO SCH (06:07)
[2017-05-11] MEDS: BUDESONIDE INH.SOLN 0.5mg/2ml NEB AEROSOL SCH ×2 (08:06→19:30)
[2017-05-11] MEDS: ALBUTEROL/IPRATROPIUM 2.5mg-0.5mg/3ml NEB AEROSOL PRN ×2 (08:07→15:30)
[2017-05-11] MEDS: GUAIFENESIN LA 600 MG TABLET PO SCH ×3 (08:13→21:38)
[2017-05-11] MEDS: ARIPiprazole 2 MG TABLET PO SCH (08:13)
[2017-05-11] MEDS: FUROSEMIDE 40 MG TABLET PO SCH ×2 (08:13→11:52)
[2017-05-11] MEDS: CARVEDILOL 6.25 MG TABLET PO SCH ×2 (08:13→17:16)
[2017-05-11] MEDS: AMIODARONE 200 MG TABLET PO SCH (08:13)
[2017-05-11] MEDS: DOCUSATE SODIUM 100 MG CAPSULE PO SCH (08:13)
[2017-05-11] MEDS: MAGNESIUM OXIDE 400 MG TABLET PO SCH (08:13)
[2017-05-11] MEDS: POLYETHYL GLYCOL 3350 17gm PACKET PO SCH ×2 (08:13→21:40)
--- NOTE | 2017-05-11 10:18 | XRay Report ---
INDICATION: SOA, cough PROCEDURE: CHEST 2-VIEWS UPRIGHT (PA & LAT) Encounter: Initial Comparison: May 09, 2017 Findings: The lungs are stable in appearance without new focal airspace consolidation. Stable small effusions. No pneumothorax. The heart size, pulmonary vascularity and mediastinal contours are unchanged. Left pacemaker. IMPRESSION: Stable appearance of the chest. .
--- NOTE | 2017-05-11 12:21 | Neuropsych Progress Note ---
[facility] Subjective Date: 05/11/17 - Sujective/Severity of Illness Medications: Acetaminophen (Tylenol) 325 mg PO Q6HR PRN PRN Reason: Pain Last Admin: 05/10/17 06:27 Dose: 325 mg Albuterol/Ipratropium (Duoneb) 3 ml AEROSOL RTQID PRN Last Admin: 05/11/17 08:07 Dose: 3 ml Amiodarone HCl (Pacerone) 200 mg PO DAILY [facility] Last Admin: 05/11/17 08:13 Dose: 200 mg Aripiprazole (Abilify) 2 mg PO DAILY [facility] Last Admin: 05/11/17 08:13 Dose: 2 mg Benzocaine (Cepacol Sore Throat Lozenge) 1 lozenge MM PRN PRN PRN Reason: Sore throat Budesonide (Pulmicort Inhalation) 0.5 mg AEROSOL RTBID [facility] Last Admin: 05/11/17 08:06 Dose: 0.5 mg Camphor/Menthol/Eucalyptus (Vicks Vaporub) 1 applic TP TID PRN Carvedilol (Coreg) 6.25 mg PO BIDWM [facility] Last Admin: 05/11/17 08:13 Dose: 6.25 mg Docusate Sodium (Colace) 100 mg PO DAILY [facility] Last Admin: 05/11/17 08:13 Dose: 100 mg Furosemide (Lasix) 40 mg PO 0800,1200 [facility] Last Admin: 05/11/17 11:52 Dose: 40 mg Guaifenesin (Mucinex La) 600 mg PO BID [facility] Last Admin: 05/11/17 08:13 Dose: 600 mg Haloperidol (Haldol) 0.5 mg PO Q6H PRN PRN Reason: Extreme agitation Haloperidol (Haldol) 0.5 mg PO Q6H PRN PRN Reason: Extreme agitation Haloperidol Lactate (Haldol) 0.5 mg IM Q6H PRN PRN Reason: Extreme agitation Haloperidol Lactate (Haldol) 0.5 mg IM Q6H PRN PRN Reason: Extreme agitation Insulin Aspart (Novolog) 1 - 5 unit SQ SS PRN; Protocol PRN Reason: Hyperglycemia Last Admin: 05/06/17 21:18 Dose: 1 unit Levothyroxine Sodium (Synthroid) 100 mcg PO ACB [facility] Last Admin: 05/11/17 06:07 Dose: 100 mcg Lisinopril (Prinivil) 2.5 mg PO DAILY [facility] Last Admin: 05/08/17 09:56 Dose: Not Given Lorazepam (Ativan) 0.5 mg PO Q6H PRN PRN Reason: Extreme agitation Lorazepam (Ativan Inj) 0.5 mg IM Q6H PRN PRN Reason: Extreme agitation Lorazepam (Ativan Inj) 0.5 mg IM Q6H PRN PRN Reason: Extreme agitation Magnesium Hydroxide (Mom) 30 ml PO DAILY PRN PRN Reason: Indigestion Magnesium Oxide (Magox) 400 mg PO DAILY [facility] Last Admin: 05/11/17 08:13 Dose: 400 mg Menthol (Ricola Sf) 1 lozenge MM PRN PRN PRN Reason: Cough Mirtazapine (Remeron) 22.5 mg PO HS [facility] Last Admin: 05/10/17 22:24 Dose: 22.5 mg Polyethylene Glycol (Miralax) 17 gm PO BID [facility] Last Admin: 05/11/17 08:13 Dose: 17 gm Potassium Chloride (K-Dur 20 Meq Tablet) 20 meq PO BIDWM [facility] Last Admin: 05/11/17 08:12 Dose: 20 meq Subjective: Patient seen and chart reviewed. Nursing reports pt did not sleep well but physically is doing better. On face to face the pt is seen sitting up in a chair. She is alert and oriented x 3. She is pleasant and cooperative. She states she does not feel well physically but feels she is improved. Voices no other concerns. Tolerating meds Start Time: 11:30 Stop Time: 11:45 Mental Status Exam Vitals: Last Vital Signs Temp 98.2 F 05/11/17 08:48 Pulse 82 05/11/17 08:48 Resp 16 05/11/17 07:45 BP 99/61 05/11/17 08:48 Pulse Ox 87 L 05/11/17 08:48 Height: 1.65 m Weight: 48.3 kg - Mental Status Exam Muscle Strength/Tone: Weak Dressing: Casual Grooming: Fair Attitude: Cooperative Motor Activity: Retardation Eye Contact: Good Speech: Normal Volume: Normal Rhythm: Appropriate Rhythm Orientation: Oriented to person, Oriented to place, Oriented to time (1 day off) Mood: Anxious (improved from admission) Rate of Thoughts: Appropriate Rate Thought Organization: Circumstantial, Perseverations (on health concerns, sleep , etc.) Associations: Intact Abstract Reasoning: Poor abstract reasoning Thought Content: Ruminations, Somatic Concerns Perception/Psychotic: Perception Normal Language: Naming Intact Fund of Knowledge: Other (SLUMS ) Suicidal Ideation: Denies Homicidal Ideation: Denies Insight: Limited Judgement: Limited Impulse Control: Fair - Laboratory Result Diagrams: 05/11/17 07:05 05/11/17 07:05 Laboratory Results - last 24 hr 05/11/17 05/11/17 07:05 07:05 WBC 9.9 RBC 3.90 L Hgb 12.3 Hct 41.0 MCV 105.1 H MCH 31.5 MCHC 30.0 L RDW Std Deviation 55.4 H Plt Count 197 MPV 9.3 L Immature Gran % (Auto) 0.1 Neut % (Auto) 81.3 H Lymph % (Auto) 11.8 L Lea % (Auto) 6.5 Eos % (Auto) 0.2 Baso % (Auto) 0.1 Neut # (Auto) 8.0 H Lymph # (Auto) 1.2 Lea # (Auto) 0.6 Eos # (Auto) 0.0 Baso # (Auto) 0.0 Abs Immat Gran (auto) 0.01 Turbidity < 20 Sodium 141 Potassium 4.5 Chloride 93 L Carbon Dioxide 42 H* Anion Gap 6 BUN 23.0 H Creatinine 0.8 GFR Calculation 69 BUN/Creatinine Ratio 29 H Glucose 109 Calculated Osmolality 276 Calcium 9.0 Icterus Index < 2 NT-Pro-B Natriuret Pep 2350 H Specimen Hemolysis < 15 Assessment and Plan (1) Anxiety, generalized Current visit: No Status: Acute (2) Neurocognitive disorder Problem details: Medical comorbiditites: Recent dx of RSV - improving S/P right femoral neck fracture with ORIF on 04/11/17 - Dr. Elizabeth. Traumatic SAH - 04/09/17 - CT on 04/28/17 showed resolution - Dr. Gaxiola. History of 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 (Fluid restriction) Frequent falls with gait instability. 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 Odonnell. Nocturnal home oxygen use at 2L. Chronic diagnoses: Hypertension. Hyperlipidemia. Paroxysmal a-fib. Sick sinus syndrome with pacemaker placement. COPD Vitamin D deficiency. Hypothyroidism. Aortic valve stenosis with prosthetic valve replacement. CAD. Osteoarthritis. Rheumatoid arthritis. Cataracts. History of breast cancer. Current visit: No Status: Acute Hospital Course Summary Disclaimer: The visit summary below is not to be considered part of the above Progress Note. Hospital Course: Plan - 05/07/17 Continue psychiatric care. Continue to provide safe and supportive environment. Awaiting PT/OT recommendations. Continue home oxygen 2L at night. Oxygen as needed to maintain SAO2 >90%. Patient does not use day time oxygen at home. Currently on 1200cc fluid restriction. Monitor sodium. May be able to increase restriction to 1500. Continue her breathing treatments as long as she continues to have cough. Encourage incentive spirometry. Prednisone treatment complete. Repeat CBC and BMP in AM. New leukocytosis (WBC 11.9) on 05/06/17. Will repeat CXR in AM given recent RSV. Measure I and O and daily weights given her CHF. Follow fall risk protocol given her frequent falls. She remains off anticoagulation given her recent subarachnoid hemorrhage and frequent falls. 05/06/17 Psych: Start Abilify 1mg PO daily. 05/07/17 Psych: Continue current care as Abilify was started on 05/06; monitor response and may consider increase on 05/08 if well-tolerated. Increase mirtazapine to 22.5mg PO q HS. 05/08/17 History of chronically low BP per pt report with SBP ~100 mmHg. Will hold lisinopril for now, cont Lasix Hypernatremia, elevated CO2 (41) -- recheck in am; may need to reduce dose of Lasix. Increase fluid restriction to 1500. Leukocytosis has resolved. Continue supportive care for RSV. 05/08/17 Psych: Plan to increase Abilify to 2mg PO daily on 05/09 as I believe it has been helpful for mood/anxiety. 05/09/17 Psych: Plan to decrease HS Ativan to 0.25mg PO q HS and discontinue as patient has had some overnight hypoxemia. Abilify increased to 2mg this morning - seems to be tolerating well. Monitor mood, behavior and response over the weekend. 05/10/17 Psych- D/C HS Ativan 05/11/17 Pt did not sleep well. Will add back Ativan 0.25mg at HS as breathing is better.
[2017-05-11] MEDS: LORazepam 0.5 MG TABLET PO SCH (21:39)
[2017-05-11] MEDS: MIRTAZAPINE 15 MG TABLET PO SCH (21:40)
[2017-05-12] MEDS: LORazepam 0.5 MG TABLET PO SCH (06:36)
[2017-05-12] MEDS: ALBUTEROL/IPRATROPIUM 2.5mg-0.5mg/3ml NEB AEROSOL PRN ×2 (07:10→20:20)
[2017-05-12] MEDS: BUDESONIDE INH.SOLN 0.5mg/2ml NEB AEROSOL SCH ×2 (07:10→20:20)
[2017-05-12] MEDS: CARVEDILOL 6.25 MG TABLET PO SCH ×2 (09:09→17:19)
[2017-05-12] MEDS: FUROSEMIDE 40 MG TABLET PO SCH ×2 (09:09→13:15)
[2017-05-12] MEDS: ARIPiprazole 2 MG TABLET PO SCH (09:09)
[2017-05-12] MEDS: AMIODARONE 200 MG TABLET PO SCH (09:09)
[2017-05-12] MEDS: GUAIFENESIN LA 600 MG TABLET PO SCH ×2 (09:09→20:37)
[2017-05-12] MEDS: MAGNESIUM OXIDE 400 MG TABLET PO SCH (09:09)
[2017-05-12] MEDS: DOCUSATE SODIUM 100 MG CAPSULE PO SCH (09:09)
[2017-05-12] MEDS: LEVOTHYROXINE 100 MCG TAB - PT OWN PO SCH (09:10)
[2017-05-12] MEDS: POLYETHYL GLYCOL 3350 17gm PACKET PO SCH ×2 (09:11→20:45)
--- NOTE | 2017-05-12 13:35 | Progress Note ---
- Date 05/12/17 Subjective: Kerry is seen today in follow up. She is currently on room air and maintaining adequate saturations. Her a sling oxygen needs are 2 liters at nighttime only. She denies having any chest pain or feeling short of breath. She denies having any abdominal discomfort, nausea or diarrhea. Appetite has been good. Objective Vital signs: Temperature 97.6 F 05/12/17 08:00 Pulse Rate 45 L 05/12/17 08:00 Respiratory Rate 16 05/12/17 08:00 Blood Pressure 132/74 05/12/17 08:00 Pulse Oximetry 97 05/12/17 07:10 Height/Weight/BMI: Height 1.65 m Weight 48.3 kg Body Mass Index 18.7 - Constitutional Present: no acute distress, well nourished, well developed - Routine HEENT Exam Eye: Present: EOMI ENT: Present: mucous membranes moist, dentition normal - Routine Respiratory Exam Present: CTA bilaterally. Absent: wheezes - Routine Cardiovascular Exam Present: RRR, S1, S2. Absent: murmur - Routine Abdominal Exam Present: soft, normoactive bowel sounds, non distended. Absent: tenderness - Routine Extremities Exam Present: normal capillary refill - Routine Skin Exam Present: intact, dry, warm - Routine Neurological Exam Present: alert, oriented X3, CN II-XII intact, moving all extremities - Routine Lymphatic Exam Lymphatic: Absent: adenopathy - Routine Psychiatric Exam Present: normal affect, cooperative Results - Labs CBC & Chem 7: 05/11/17 07:05 05/11/17 07:05 Assessment and Plan Assessment and Plan: Acute Assessment: Recent dx of RSV - improving Increased agitation, anxiety and behaviors. Hypernatremia S/P right femoral neck fracture with ORIF on 04/11/17 - Dr. Elizabeth. Traumatic SAH - 04/09/17 - CT on 04/28/17 showed resolution - Dr. Gaxiola. Off anticoagulants. History of 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 (Fluid restriction) Frequent falls with gait instability. 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 Odonnell. Nocturnal home oxygen use at 2L. Chronic diagnoses: Hypertension. Hyperlipidemia. Paroxysmal a-fib. Sick sinus syndrome with pacemaker placement. COPD Vitamin D deficiency. Hypothyroidism. Aortic valve stenosis with prosthetic valve replacement. CAD. Osteoarthritis. Rheumatoid arthritis. Anxiety. Cataracts. History of breast cancer. 05/12/17 Overall doing well. Chart reviewed. Spoke with staff regarding weaning down oxygen. Baseline is 2 liter at HS only Encourage use of IS during the day Remains on Fluid restriction of 1500ML due to hx of SIADH Continued psychiatric care as per Dr. Garza Encourage patient to participate in unit activities and provide a safe environment - Physician Narrative Narrative: Date: 05/12/17 Time: 1333 Hospital Course Summary Disclaimer: The visit summary below is not to be considered part of the above Progress Note. Hospital Course: Plan - 05/07/17 Continue psychiatric care. Continue to provide safe and supportive environment. Awaiting PT/OT recommendations. Continue home oxygen 2L at night. Oxygen as needed to maintain SAO2 >90%. Patient does not use day time oxygen at home. Currently on 1200cc fluid restriction. Monitor sodium. May be able to increase restriction to 1500. Continue her breathing treatments as long as she continues to have cough. Encourage incentive spirometry. Prednisone treatment complete. Repeat CBC and BMP in AM. New leukocytosis (WBC 11.9) on 05/06/17. Will repeat CXR in AM given recent RSV. Measure I and O and daily weights given her CHF. Follow fall risk protocol given her frequent falls. She remains off anticoagulation given her recent subarachnoid hemorrhage and frequent falls. 05/06/17 Psych: Start Abilify 1mg PO daily. 05/07/17 Psych: Continue current care as Abilify was started on 05/06; monitor response and may consider increase on 05/08 if well-tolerated. Increase mirtazapine to 22.5mg PO q HS. 05/08/17 History of chronically low BP per pt report with SBP ~100 mmHg. Will hold lisinopril for now, cont Lasix Hypernatremia, elevated CO2 (41) -- recheck in am; may need to reduce dose of Lasix. Increase fluid restriction to 1500. Leukocytosis has resolved. Continue supportive care for RSV. 05/08/17 Psych: Plan to increase Abilify to 2mg PO daily on 05/09 as I believe it has been helpful for mood/anxiety. 05/09/17 Psych: Plan to decrease HS Ativan to 0.25mg PO q HS and discontinue as patient has had some overnight hypoxemia. Abilify increased to 2mg this morning - seems to be tolerating well. Monitor mood, behavior and response over the weekend. 05/10/17 Psych- D/C HS Ativan 05/11/17 Pt did not sleep well. Will add back Ativan 0.25mg at HS as breathing is better. 05/12/17 Overall doing well. Chart reviewed. Spoke with staff regarding weaning down oxygen. Baseline is 2 liter at HS only Encourage use of IS during the day Remains on Fluid restriction of 1500ML due to hx of SIADH Continued psychiatric care as per Dr. Garza Encourage patient to participate in unit activities and provide a safe environment
--- NOTE | 2017-05-12 17:06 | Neuropsych Progress Note ---
[facility] Subjective Date: 05/12/17 - Sujective/Severity of Illness Medications: Acetaminophen (Tylenol) 325 mg PO Q6HR PRN PRN Reason: Pain Last Admin: 05/10/17 06:27 Dose: 325 mg Albuterol/Ipratropium (Duoneb) 3 ml AEROSOL RTQID PRN Last Admin: 05/12/17 07:10 Dose: 3 ml Amiodarone HCl (Pacerone) 200 mg PO DAILY [facility] Last Admin: 05/12/17 09:09 Dose: 200 mg Aripiprazole (Abilify) 2 mg PO DAILY [facility] Last Admin: 05/12/17 09:09 Dose: 2 mg Benzocaine (Cepacol Sore Throat Lozenge) 1 lozenge MM PRN PRN PRN Reason: Sore throat Budesonide (Pulmicort Inhalation) 0.5 mg AEROSOL RTBID [facility] Last Admin: 05/12/17 07:10 Dose: 0.5 mg Camphor/Menthol/Eucalyptus (Vicks Vaporub) 1 applic TP TID PRN Carvedilol (Coreg) 6.25 mg PO BIDWM [facility] Last Admin: 05/12/17 09:09 Dose: 6.25 mg Docusate Sodium (Colace) 100 mg PO DAILY [facility] Last Admin: 05/12/17 09:09 Dose: 100 mg Furosemide (Lasix) 40 mg PO 0800,1200 [facility] Last Admin: 05/12/17 13:15 Dose: 40 mg Guaifenesin (Mucinex La) 600 mg PO BID [facility] Last Admin: 05/12/17 09:09 Dose: 600 mg Haloperidol (Haldol) 0.5 mg PO Q6H PRN PRN Reason: Extreme agitation Haloperidol (Haldol) 0.5 mg PO Q6H PRN PRN Reason: Extreme agitation Haloperidol Lactate (Haldol) 0.5 mg IM Q6H PRN PRN Reason: Extreme agitation Haloperidol Lactate (Haldol) 0.5 mg IM Q6H PRN PRN Reason: Extreme agitation Insulin Aspart (Novolog) 1 - 5 unit SQ SS PRN; Protocol PRN Reason: Hyperglycemia Last Admin: 05/06/17 21:18 Dose: 1 unit Levothyroxine Sodium (Synthroid) 100 mcg PO ACB [facility] Last Admin: 05/12/17 09:10 Dose: 100 mcg Lisinopril (Prinivil) 2.5 mg PO DAILY [facility] Last Admin: 05/08/17 09:56 Dose: Not Given Lorazepam (Ativan) 0.5 mg PO Q6H PRN PRN Reason: Extreme agitation Lorazepam (Ativan Inj) 0.5 mg IM Q6H PRN PRN Reason: Extreme agitation Lorazepam (Ativan Inj) 0.5 mg IM Q6H PRN PRN Reason: Extreme agitation Lorazepam (Ativan) 0.25 mg PO [facility] Last Admin: 05/12/17 06:36 Dose: Not Given Magnesium Hydroxide (Mom) 30 ml PO DAILY PRN PRN Reason: Indigestion Magnesium Oxide (Magox) 400 mg PO DAILY [facility] Last Admin: 05/12/17 09:09 Dose: 400 mg Menthol (Ricola Sf) 1 lozenge MM PRN PRN PRN Reason: Cough Mirtazapine (Remeron) 22.5 mg PO [facility] Last Admin: 05/11/17 21:40 Dose: 22.5 mg Polyethylene Glycol (Miralax) 17 gm PO BID [facility] Last Admin: 05/12/17 09:11 Dose: 17 gm Potassium Chloride (K-Dur 20 Meq Tablet) 20 meq PO BIDWM [facility] Last Admin: 05/12/17 09:10 Dose: 20 meq Subjective: Patient seen and chart reviewed. Case discussed with treatment team. On interview, patient is pleasant and appears less anxious than on previous days. She talks about not feeling at peace with her own mortality and asking herself why. I encouraged her continued work with her customer accounts advisor, which she finds helpful. Discussed whether memory concerns (which have not gotten worse) are due to meds and I told her I have more concern about her health status, oxygenation than psychotropes. She feels it's difficult to give up control of her health to others. Patient denies any SI, HI or AVH. Patient denies any adverse side effects related to psychotropic medications otherwise. Nursing staff report patient has been less perseverative on fluid restriction than previously and has not had any other significant behavioral difficulties. Patient has been adherent with medications. Patient slept 6.5 hours overnight. VSS. Patient is eating well. Psychotropic PRNs required in the past 24 hours: none. Start Time: 11:20 Stop Time: 11:40 Mental Status Exam Vitals: Last Vital Signs Temp 98.4 F 05/12/17 15:50 Pulse 81 05/12/17 15:50 Resp 16 05/12/17 15:50 BP 95/67 05/12/17 15:50 Pulse Ox 91 05/12/17 15:50 Height: 1.65 m Weight: 49.5 kg - Mental Status Exam Muscle Strength/Tone: Weak Dressing: Casual Grooming: Fair Attitude: Cooperative Motor Activity: Retardation Eye Contact: Good Speech: Normal Volume: Normal Rhythm: Appropriate Rhythm Orientation: Oriented to person, Oriented to place, Oriented to time (1 day off) Mood: Anxious (improved from admission) Affect: Relaxed Rate of Thoughts: Appropriate Rate Thought Organization: Circumstantial, Perseverations (on fluid restriction, improved from previous) Associations: Intact Abstract Reasoning: Poor abstract reasoning Thought Content: Ruminations (improved), Somatic Concerns Perception/Psychotic: Perception Normal Language: Naming Intact Fund of Knowledge: Other (SLUMS 25/30) Memory: Grossly Intact Suicidal Ideation: Denies Homicidal Ideation: Denies Insight: Limited Judgement: Limited Impulse Control: Fair - Laboratory Result Diagrams: 05/11/17 07:05 05/11/17 07:05 Assessment and Plan (1) Anxiety, generalized Current visit: No Status: Acute (2) Neurocognitive disorder Problem details: Medical comorbiditites: Recent dx of RSV - improving S/P right femoral neck fracture with ORIF on 04/11/17 - Dr. Elizabeth. Traumatic SAH - 04/09/17 - CT on 04/28/17 showed resolution - Dr. Gaxiola. History of 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 (Fluid restriction) Frequent falls with gait instability. 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 Odonnell. Nocturnal home oxygen use at 2L. Chronic diagnoses: Hypertension. Hyperlipidemia. Paroxysmal a-fib. Sick sinus syndrome with pacemaker placement. COPD Vitamin D deficiency. Hypothyroidism. Aortic valve stenosis with prosthetic valve replacement. CAD. Osteoarthritis. Rheumatoid arthritis. Cataracts. History of breast cancer. Current visit: No Status: Acute Continue current care, will contact DPOA in regards to patient's care/progress on the unit. Will leave Ativan 0.25mg PO q HS PRN insomnia. Hospital Course Summary Disclaimer: The visit summary below is not to be considered part of the above Progress Note. Hospital Course: Plan - 05/07/17 Continue psychiatric care. Continue to provide safe and supportive environment. Awaiting PT/OT recommendations. Continue home oxygen 2L at night. Oxygen as needed to maintain SAO2 >90%. Patient does not use day time oxygen at home. Currently on 1200cc fluid restriction. Monitor sodium. May be able to increase restriction to 1500. Continue her breathing treatments as long as she continues to have cough. Encourage incentive spirometry. Prednisone treatment complete. Repeat CBC and BMP in AM. New leukocytosis (WBC 11.9) on 05/06/17. Will repeat CXR in AM given recent RSV. Measure I and O and daily weights given her CHF. Follow fall risk protocol given her frequent falls. She remains off anticoagulation given her recent subarachnoid hemorrhage and frequent falls. 05/06/17 Psych: Start Abilify 1mg PO daily. 05/07/17 Psych: Continue current care as Abilify was started on 05/06; monitor response and may consider increase on 05/08 if well-tolerated. Increase mirtazapine to 22.5mg PO q HS. 05/08/17 History of chronically low BP per pt report with SBP ~100 mmHg. Will hold lisinopril for now, cont Lasix Hypernatremia, elevated CO2 (41) -- recheck in am; may need to reduce dose of Lasix. Increase fluid restriction to 1500. Leukocytosis has resolved. Continue supportive care for RSV. 05/08/17 Psych: Plan to increase Abilify to 2mg PO daily on 05/09 as I believe it has been helpful for mood/anxiety. 05/09/17 Psych: Plan to decrease HS Ativan to 0.25mg PO q HS and discontinue as patient has had some overnight hypoxemia. Abilify increased to 2mg this morning - seems to be tolerating well. Monitor mood, behavior and response over the weekend. 05/10/17 Psych- D/C HS Ativan 05/11/17 Pt did not sleep well. Will add back Ativan 0.25mg at HS as breathing is better. 05/12/17 Overall doing well. Chart reviewed. Spoke with staff regarding weaning down oxygen. Baseline is 2 liter at HS only Encourage use of IS during the day Remains on Fluid restriction of 1500ML due to hx of SIADH Continued psychiatric care as per Dr. Garza Encourage patient to participate in unit activities and provide a safe environment 05/12/17 Psych: Continue current care, will contact DPOA in regards to patient's care/progress on the unit. Will leave Ativan 0.25mg PO q HS PRN insomnia.
[2017-05-12] MEDS: LORazepam 0.5 MG TABLET PO PRN (21:17)
[2017-05-12] MEDS: MIRTAZAPINE 15 MG TABLET PO SCH (21:17)
[2017-05-13] MEDS: ALBUTEROL/IPRATROPIUM 2.5mg-0.5mg/3ml NEB AEROSOL PRN ×3 (07:40→21:15)
[2017-05-13] MEDS: BUDESONIDE INH.SOLN 0.5mg/2ml NEB AEROSOL SCH ×3 (07:40→21:15)
[2017-05-13] MEDS: LEVOTHYROXINE 100 MCG TAB - PT OWN PO SCH (09:32)
[2017-05-13] MEDS: POLYETHYL GLYCOL 3350 17gm PACKET PO SCH ×3 (09:36→23:04)
[2017-05-13] MEDS: GUAIFENESIN LA 600 MG TABLET PO SCH ×2 (09:53→23:46)
[2017-05-13] MEDS: AMIODARONE 200 MG TABLET PO SCH (09:53)
[2017-05-13] MEDS: FUROSEMIDE 40 MG TABLET PO SCH ×2 (09:53→17:52)
[2017-05-13] MEDS: MAGNESIUM OXIDE 400 MG TABLET PO SCH (09:54)
[2017-05-13] MEDS: DOCUSATE SODIUM 100 MG CAPSULE PO SCH (09:54)
[2017-05-13] MEDS: ARIPiprazole 2 MG TABLET PO SCH (09:54)
--- NOTE | 2017-05-13 14:42 | Neuropsych Progress Note ---
[facility] Subjective Date: 05/14/17 - Sujective/Severity of Illness Medications: Acetaminophen (Tylenol) 325 mg PO Q6HR PRN PRN Reason: Pain Last Admin: 05/10/17 06:27 Dose: 325 mg Albuterol/Ipratropium (Duoneb) 3 ml AEROSOL RTQID PRN Last Admin: 05/13/17 07:40 Dose: 3 ml Amiodarone HCl (Pacerone) 200 mg PO DAILY [facility] Last Admin: 05/13/17 09:53 Dose: 200 mg Aripiprazole (Abilify) 2 mg PO DAILY [facility] Last Admin: 05/13/17 09:54 Dose: 2 mg Benzocaine (Cepacol Sore Throat Lozenge) 1 lozenge MM PRN PRN PRN Reason: Sore throat Budesonide (Pulmicort Inhalation) 0.5 mg AEROSOL RTBID [facility] Last Admin: 05/13/17 07:40 Dose: 0.5 mg Camphor/Menthol/Eucalyptus (Vicks Vaporub) 1 applic TP TID PRN Carvedilol (Coreg) 6.25 mg PO BIDWM [facility] Last Admin: 05/12/17 17:19 Dose: 6.25 mg Docusate Sodium (Colace) 100 mg PO DAILY [facility] Last Admin: 05/13/17 09:54 Dose: Not Given Furosemide (Lasix) 40 mg PO 0800,1200 [facility] Last Admin: 05/13/17 09:53 Dose: 40 mg Guaifenesin (Mucinex La) 600 mg PO BID [facility] Last Admin: 05/13/17 09:53 Dose: 600 mg Haloperidol (Haldol) 0.5 mg PO Q6H PRN PRN Reason: Extreme agitation Haloperidol (Haldol) 0.5 mg PO Q6H PRN PRN Reason: Extreme agitation Haloperidol Lactate (Haldol) 0.5 mg IM Q6H PRN PRN Reason: Extreme agitation Haloperidol Lactate (Haldol) 0.5 mg IM Q6H PRN PRN Reason: Extreme agitation Insulin Aspart (Novolog) 1 - 5 unit SQ SS PRN; Protocol PRN Reason: Hyperglycemia Last Admin: 05/06/17 21:18 Dose: 1 unit Levothyroxine Sodium (Synthroid) 100 mcg PO ACB [facility] Last Admin: 05/13/17 09:32 Dose: 100 mcg Lisinopril (Prinivil) 2.5 mg PO DAILY [facility] Last Admin: 05/08/17 09:56 Dose: Not Given Lorazepam (Ativan) 0.5 mg PO Q6H PRN PRN Reason: Extreme agitation Lorazepam (Ativan Inj) 0.5 mg IM Q6H PRN PRN Reason: Extreme agitation Lorazepam (Ativan Inj) 0.5 mg IM Q6H PRN PRN Reason: Extreme agitation Lorazepam (Ativan) 0.25 mg PO HS PRN PRN Reason: Insomnia Last Admin: 05/12/17 21:17 Dose: 0.25 mg Magnesium Hydroxide (Mom) 30 ml PO DAILY PRN PRN Reason: Indigestion Magnesium Oxide (Magox) 400 mg PO DAILY [facility] Last Admin: 05/13/17 09:54 Dose: 400 mg Menthol (Ricola Sf) 1 lozenge MM PRN PRN PRN Reason: Cough Mirtazapine (Remeron) 22.5 mg PO HS [facility] Last Admin: 05/12/17 21:17 Dose: 22.5 mg Polyethylene Glycol (Miralax) 17 gm PO BID [facility] Last Admin: 05/13/17 09:36 Dose: 17 gm Potassium Chloride (K-Dur 20 Meq Tablet) 20 meq PO BIDWM [facility] Last Admin: 05/13/17 09:53 Dose: 20 meq Subjective: Patient seen and chart reviewed. Case discussed with treatment team. On interview, patient is pleasant and eager to engage with me in a discussion of her symptoms, anxiety and coping mechanisms. Patient seems to be primarily struggling with end of life issues, which I reassured her will be ongoing with therapy (not solved during this hospitalization). Discussed healthy control vs. unhealthy control, and where to allow others to help vs. where to maintain her independence. She asked me to contact ZANE Santana while she was in the room, which we did. We discussed with Esther nature of interactions after the hospital as patient has been reluctant to let others in. I recommended allowing patient to have control of what she is able to -- such as visiting times/dates, phone calls vs. in person, length of visitation, etc. and to discuss these things in advance. Patient is very concrete in her understanding of fluid restriction so will discuss with hospitalist how much wiggle room she has. Also discussed with patient that it is okay if she decides she would rather not follow fluid restriction, knowing that she may pass away sooner. Patient denies any SI, HI or AVH. Patient denies any adverse side effects related to psychotropic medications otherwise. Nursing staff report patient continues to be anxious about fluid restriction but also the difficulty that staff have had some confusion about it as well, which is not reassuring for patient when she is struggling to let others have control. Her nurse, Caden was going to try an alternate strategy of providing a big cup of water for the day so patient could track it herself more easily. Patient has been adherent with medications. Patient slept 7.75 hours overnight. VSS. Patient is eating well. Psychotropic PRNs required in the past 24 hours: Ativan 0.25mg PO x1 at HS per patient request. Patient would like psych med mgmt. at [place] after discharge and to continue weekly therapy with her enlisted advisor. Start Time: 08:40 Stop Time: 09:00 Mental Status Exam Vitals: Last Vital Signs Temp 97.6 F 05/13/17 08:00 Pulse 117 H 05/13/17 08:00 Resp 18 05/13/17 08:00 BP 90/63 05/13/17 08:00 Pulse Ox 92 05/13/17 08:00 Height: 1.65 m Weight: 49.8 kg - Mental Status Exam Muscle Strength/Tone: Weak Dressing: Casual Grooming: Fair Attitude: Cooperative Motor Activity: Retardation Eye Contact: Good Speech: Normal Volume: Normal Rhythm: Appropriate Rhythm Orientation: Oriented to person, Oriented to place, Oriented to time (1 day off) Mood: Anxious (improved from admission) Affect: Anxious Rate of Thoughts: Appropriate Rate Thought Organization: Circumstantial, Perseverations (on fluid restriction, improved from previous) Associations: Intact Abstract Reasoning: Poor abstract reasoning Thought Content: Ruminations (improved), Somatic Concerns Perception/Psychotic: Perception Normal Language: Naming Intact Fund of Knowledge: Other (SLUMS 25/) Memory: Grossly Intact Suicidal Ideation: Denies Homicidal Ideation: Denies Insight: Limited Judgement: Limited Impulse Control: Fair - Laboratory Result Diagrams: 05/11/17 07:05 05/11/17 07:05 Assessment and Plan (1) Anxiety, generalized Current visit: No Status: Acute (2) Neurocognitive disorder Problem details: Medical comorbiditites: Recent dx of RSV - improving S/P right femoral neck fracture with ORIF on 04/11/17 - Dr. Elizabeth. Traumatic SAH - 04/09/17 - CT on 04/28/17 showed resolution - Dr. Gaxiola. History of 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 (Fluid restriction) Frequent falls with gait instability. 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 Odonnell. Nocturnal home oxygen use at 2L. Chronic diagnoses: Hypertension. Hyperlipidemia. Paroxysmal a-fib. Sick sinus syndrome with pacemaker placement. COPD Vitamin D deficiency. Hypothyroidism. Aortic valve stenosis with prosthetic valve replacement. CAD. Osteoarthritis. Rheumatoid arthritis. Cataracts. History of breast cancer. Current visit: No Status: Acute Continue current care from psychiatric standpoint though patient/DPOA to discuss follow up options for medical and psychiatric care. Hospital Course Summary Disclaimer: The visit summary below is not to be considered part of the above Progress Note. Hospital Course: Plan - 05/07/17 Continue psychiatric care. Continue to provide safe and supportive environment. Awaiting PT/OT recommendations. Continue home oxygen 2L at night. Oxygen as needed to maintain SAO2 >90%. Patient does not use day time oxygen at home. Currently on 1200cc fluid restriction. Monitor sodium. May be able to increase restriction to 1500. Continue her breathing treatments as long as she continues to have cough. Encourage incentive spirometry. Prednisone treatment complete. Repeat CBC and BMP in AM. New leukocytosis (WBC 11.9) on 05/06/17. Will repeat CXR in AM given recent RSV. Measure I and O and daily weights given her CHF. Follow fall risk protocol given her frequent falls. She remains off anticoagulation given her recent subarachnoid hemorrhage and frequent falls. 05/06/17 Psych: Start Abilify 1mg PO daily. 05/07/17 Psych: Continue current care as Abilify was started on 05/06; monitor response and may consider increase on 05/08 if well-tolerated. Increase mirtazapine to 22.5mg PO q HS. 05/08/17 History of chronically low BP per pt report with SBP ~100 mmHg. Will hold lisinopril for now, cont Lasix Hypernatremia, elevated CO2 (41) -- recheck in am; may need to reduce dose of Lasix. Increase fluid restriction to 1500. Leukocytosis has resolved. Continue supportive care for RSV. 3/8/18 Psych: Plan to increase Abilify to 2mg PO daily on 05/09 as I believe it has been helpful for mood/anxiety. 05/09/17 Psych: Plan to decrease HS Ativan to 0.25mg PO q HS and discontinue as patient has had some overnight hypoxemia. Abilify increased to 2mg this morning - seems to be tolerating well. Monitor mood, behavior and response over the weekend. 05/10/17 Psych- D/C HS Ativan 05/11/17 Pt did not sleep well. Will add back Ativan 0.25mg at HS as breathing is better. 05/12/17 Overall doing well. Chart reviewed. Spoke with staff regarding weaning down oxygen. Baseline is 2 liter at HS only Encourage use of IS during the day Remains on Fluid restriction of 1500ML due to hx of SIADH Continued psychiatric care as per Dr. Garza Encourage patient to participate in unit activities and provide a safe environment 05/12/17 Psych: Continue current care, will contact DPOA in regards to patient's care/progress on the unit. Will leave Ativan 0.25mg PO q HS PRN insomnia.
[2017-05-13] MEDS: CARVEDILOL 6.25 MG TABLET PO SCH ×2 (16:52→17:12)
[2017-05-13] MEDS: MIRTAZAPINE 15 MG TABLET PO SCH (23:45)
[2017-05-13] MEDS: LORazepam 0.5 MG TABLET PO PRN (23:47)
[2017-05-14] MEDS: LEVOTHYROXINE 100 MCG TAB - PT OWN PO SCH (06:13)
[2017-05-14] MEDS: AMIODARONE 200 MG TABLET PO SCH (08:14)
[2017-05-14] MEDS: ARIPiprazole 2 MG TABLET PO SCH (08:14)
[2017-05-14] MEDS: CARVEDILOL 6.25 MG TABLET PO SCH ×2 (08:14→17:31)
[2017-05-14] MEDS: FUROSEMIDE 40 MG TABLET PO SCH ×2 (08:14→12:16)
[2017-05-14] MEDS: GUAIFENESIN LA 600 MG TABLET PO SCH ×3 (08:15→21:54)
[2017-05-14] MEDS: POLYETHYL GLYCOL 3350 17gm PACKET PO SCH ×2 (08:15→22:01)
[2017-05-14] MEDS: DOCUSATE SODIUM 100 MG CAPSULE PO SCH (08:15)
[2017-05-14] MEDS: MAGNESIUM OXIDE 400 MG TABLET PO SCH (08:15)
--- NOTE | 2017-05-14 10:08 | Neuropsych Progress Note ---
[facility] Subjective Date: 05/14/17 - Sujective/Severity of Illness Medications: Acetaminophen (Tylenol) 325 mg PO Q6HR PRN PRN Reason: Pain Last Admin: 05/10/17 06:27 Dose: 325 mg Albuterol/Ipratropium (Duoneb) 3 ml AEROSOL RTQID PRN Last Admin: 05/13/17 21:10 Dose: 3 ml Amiodarone HCl (Pacerone) 200 mg PO DAILY [facility] Last Admin: 05/14/17 08:14 Dose: 200 mg Aripiprazole (Abilify) 2 mg PO DAILY [facility] Last Admin: 05/14/17 08:14 Dose: 2 mg Benzocaine (Cepacol Sore Throat Lozenge) 1 lozenge MM PRN PRN PRN Reason: Sore throat Budesonide (Pulmicort Inhalation) 0.5 mg AEROSOL RTBID [facility] Last Admin: 05/13/17 21:10 Dose: 0.5 mg Camphor/Menthol/Eucalyptus (Vicks Vaporub) 1 applic TP TID PRN Carvedilol (Coreg) 6.25 mg PO BIDWM [facility] Last Admin: 05/14/17 08:14 Dose: 6.25 mg Docusate Sodium (Colace) 100 mg PO DAILY [facility] Last Admin: 05/14/17 08:15 Dose: Not Given Furosemide (Lasix) 40 mg PO 0800,1200 [facility] Last Admin: 05/14/17 08:14 Dose: 40 mg Guaifenesin (Mucinex La) 600 mg PO BID [facility] Last Admin: 05/14/17 08:15 Dose: 600 mg Haloperidol (Haldol) 0.5 mg PO Q6H PRN PRN Reason: Extreme agitation Haloperidol (Haldol) 0.5 mg PO Q6H PRN PRN Reason: Extreme agitation Haloperidol Lactate (Haldol) 0.5 mg IM Q6H PRN PRN Reason: Extreme agitation Haloperidol Lactate (Haldol) 0.5 mg IM Q6H PRN PRN Reason: Extreme agitation Insulin Aspart (Novolog) 1 - 5 unit SQ SS PRN; Protocol PRN Reason: Hyperglycemia Last Admin: 05/06/17 21:18 Dose: 1 unit Levothyroxine Sodium (Synthroid) 100 mcg PO ACB [facility] Last Admin: 05/14/17 06:13 Dose: 100 mcg Lisinopril (Prinivil) 2.5 mg PO DAILY [facility] Last Admin: 05/08/17 09:56 Dose: Not Given Lorazepam (Ativan) 0.5 mg PO Q6H PRN PRN Reason: Extreme agitation Lorazepam (Ativan Inj) 0.5 mg IM Q6H PRN PRN Reason: Extreme agitation Lorazepam (Ativan Inj) 0.5 mg IM Q6H PRN PRN Reason: Extreme agitation Lorazepam (Ativan) 0.25 mg PO HS PRN PRN Reason: Insomnia Last Admin: 05/13/17 23:47 Dose: 0.25 mg Magnesium Hydroxide (Mom) 30 ml PO DAILY PRN PRN Reason: Indigestion Magnesium Oxide (Magox) 400 mg PO DAILY [facility] Last Admin: 05/14/17 08:15 Dose: 400 mg Menthol (Ricola Sf) 1 lozenge MM PRN PRN PRN Reason: Cough Mirtazapine (Remeron) 22.5 mg PO HS [facility] Last Admin: 05/13/17 23:45 Dose: 22.5 mg Polyethylene Glycol (Miralax) 17 gm PO BID [facility] Last Admin: 05/14/17 08:15 Dose: Not Given Potassium Chloride (K-Dur 20 Meq Tablet) 20 meq PO BIDWM [facility] Last Admin: 05/14/17 08:14 Dose: 20 meq Subjective: Patient seen and chart reviewed. Case discussed with treatment team. On interview, patient is pleasant and much more at peace today. I had heard from overnight staff that she was more anxious, suspicious of their care last night (mainly whether they could manage the fluid restriction correctly). This was likely due in part to difficult/emotional discussion yesterday but also patient seems to feel more comfortable with certain staff caring for her. Today , she shares with me that she would like a Hospice consult and I reassured her that I felt this was quite reasonable. She also seems more open to having friends and loved ones visit, etc. Patient denies any SI, HI or AVH. Patient denies any adverse side effects related to psychotropic medications otherwise. Nursing staff report patient continues to be anxious about fluid restriction but also the difficulty that staff have had some confusion about it as well, which is not reassuring for patient when she is struggling to let others have control. Patient has been adherent with medications. Patient slept only ~4.75 hours overnight. VSS. Patient is eating well. Psychotropic PRNs required in the past 24 hours: Ativan 0.25mg PO x1 at HS per patient request. Start Time: 11:40 Stop Time: 12:00 Mental Status Exam Vitals: Last Vital Signs Temp 97.9 F 05/14/17 08:00 Pulse 121 H 05/14/17 08:00 Resp 22 05/14/17 08:00 BP 110/74 05/14/17 08:00 Pulse Ox 93 05/14/17 08:00 Height: 1.65 m Weight: 49.8 kg - Mental Status Exam Muscle Strength/Tone: Weak Dressing: Casual Grooming: Fair Attitude: Cooperative Motor Activity: Retardation Eye Contact: Good Speech: Normal Volume: Normal Rhythm: Appropriate Rhythm Orientation: Oriented to person, Oriented to place, Oriented to time (1 day off) Mood: Neutral Affect: Relaxed Rate of Thoughts: Appropriate Rate Thought Organization: Tangential (at times) Associations: Intact Abstract Reasoning: Poor abstract reasoning Thought Content: Ruminations (improved) Perception/Psychotic: Perception Normal Language: Naming Intact Fund of Knowledge: Other (SLUMS 25/30) Memory: Grossly Intact Suicidal Ideation: Denies Homicidal Ideation: Denies Insight: Limited Judgement: Limited Impulse Control: Fair - Laboratory Result Diagrams: 05/11/17 07:05 05/11/17 07:05 Assessment and Plan (1) Anxiety, generalized Current visit: No Status: Acute (2) Neurocognitive disorder Problem details: Medical comorbiditites: Recent dx of RSV - improving S/P right femoral neck fracture with ORIF on 04/11/17 - Dr. Elizabeth. Traumatic SAH - 04/09/17 - CT on 04/28/17 showed resolution - Dr. Gaxiola. History of 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 (Fluid restriction) Frequent falls with gait instability. 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 Odonnell. Nocturnal home oxygen use at 2L. Chronic diagnoses: Hypertension. Hyperlipidemia. Paroxysmal a-fib. Sick sinus syndrome with pacemaker placement. COPD Vitamin D deficiency. Hypothyroidism. Aortic valve stenosis with prosthetic valve replacement. CAD. Osteoarthritis. Rheumatoid arthritis. Cataracts. History of breast cancer. Current visit: No Status: Acute Continue current med management; we have requested a consult with [facility] and will ask ZANE Santana to be present as well per patient wishes. Song will also be here tomorrow to assess for AL, which will allow patient to have various options. Hospital Course Summary Disclaimer: The visit summary below is not to be considered part of the above Progress Note. Hospital Course: Plan - 05/07/17 Continue psychiatric care. Continue to provide safe and supportive environment. Awaiting PT/OT recommendations. Continue home oxygen 2L at night. Oxygen as needed to maintain SAO2 >90%. Patient does not use day time oxygen at home. Currently on 1200cc fluid restriction. Monitor sodium. May be able to increase restriction to 1500. Continue her breathing treatments as long as she continues to have cough. Encourage incentive spirometry. Prednisone treatment complete. Repeat CBC and BMP in AM. New leukocytosis (WBC 11.9) on 05/06/17. Will repeat CXR in AM given recent RSV. Measure I and O and daily weights given her CHF. Follow fall risk protocol given her frequent falls. She remains off anticoagulation given her recent subarachnoid hemorrhage and frequent falls. 05/06/17 Psych: Start Abilify 1mg PO daily. 05/07/17 Psych: Continue current care as Abilify was started on 05/06; monitor response and may consider increase on 05/08 if well-tolerated. Increase mirtazapine to 22.5mg PO q HS. 05/08/17 History of chronically low BP per pt report with SBP ~100 mmHg. Will hold lisinopril for now, cont Lasix Hypernatremia, elevated CO2 (41) -- recheck in am; may need to reduce dose of Lasix. Increase fluid restriction to 1500. Leukocytosis has resolved. Continue supportive care for RSV. 05/08/17 Psych: Plan to increase Abilify to 2mg PO daily on 05/09 as I believe it has been helpful for mood/anxiety. 05/09/17 Psych: Plan to decrease HS Ativan to 0.25mg PO q HS and discontinue as patient has had some overnight hypoxemia. Abilify increased to 2mg this morning - seems to be tolerating well. Monitor mood, behavior and response over the weekend. 05/10/17 Psych- D/C HS Ativan 05/11/17 Pt did not sleep well. Will add back Ativan 0.25mg at HS as breathing is better. 05/12/17 Overall doing well. Chart reviewed. Spoke with staff regarding weaning down oxygen. Baseline is 2 liter at HS only Encourage use of IS during the day Remains on Fluid restriction of 1500ML due to hx of SIADH Continued psychiatric care as per Dr. Garza Encourage patient to participate in unit activities and provide a safe environment 05/12/17 Psych: Continue current care, will contact DPOA in regards to patient's care/progress on the unit. Will leave Ativan 0.25mg PO q HS PRN insomnia. 05/14/17 Psych: Continue current med management; we have requested a consult with [facility] and will ask DPOA Esther to be present as well per patient wishes. Song will also be here tomorrow to assess for AL, which will allow patient to have various options.
[2017-05-14] MEDS: ALBUTEROL/IPRATROPIUM 2.5mg-0.5mg/3ml NEB AEROSOL PRN ×2 (10:40→20:01)
[2017-05-14] MEDS: BUDESONIDE INH.SOLN 0.5mg/2ml NEB AEROSOL SCH ×2 (10:40→20:00)
[2017-05-14] MEDS: MENTHOL COUGH DROPS (RICOLA) MM PRN (21:57)
[2017-05-14] MEDS: MIRTAZAPINE 15 MG TABLET PO SCH (21:58)
[2017-05-14] MEDS: ACETAMINOPHEN 325 MG TABLET PO PRN (22:25)
[2017-05-15] MEDS: LEVOTHYROXINE 100 MCG TAB - PT OWN PO SCH (06:17)
[2017-05-15] MEDS: BUDESONIDE INH.SOLN 0.5mg/2ml NEB AEROSOL SCH (06:50)
[2017-05-15] MEDS: ALBUTEROL/IPRATROPIUM 2.5mg-0.5mg/3ml NEB AEROSOL PRN (06:50)
[2017-05-15] MEDS: CARVEDILOL 6.25 MG TABLET PO SCH ×2 (08:10→17:23)
[2017-05-15] MEDS: ARIPiprazole 2 MG TABLET PO SCH (08:15)
[2017-05-15] MEDS: AMIODARONE 200 MG TABLET PO SCH (08:15)
[2017-05-15] MEDS: GUAIFENESIN LA 600 MG TABLET PO SCH ×3 (08:15→22:04)
[2017-05-15] MEDS: FUROSEMIDE 40 MG TABLET PO SCH ×2 (08:15→12:04)
[2017-05-15] MEDS: MAGNESIUM OXIDE 400 MG TABLET PO SCH (08:16)
[2017-05-15] MEDS: DOCUSATE SODIUM 100 MG CAPSULE PO SCH (08:16)
[2017-05-15] MEDS: POLYETHYL GLYCOL 3350 17gm PACKET PO SCH ×2 (08:17→22:05)
--- NOTE | 2017-05-15 08:52 | Progress Note ---
- Date 05/15/17 Subjective: Patient is seen today sitting at the breakfast table. She reports everything is going well. Her cough illness has essentially resolved. Doesn't know why she is still getting breathing txs. Appetite is good. Fluid restriction is going fine. Feels her psych med adjustments are going fine. Overall pleased with how things are going. Objective Vital signs: Temperature 98.4 F 05/15/17 08:00 Pulse Rate 104 H 05/15/17 08:00 Respiratory Rate 16 05/15/17 08:00 Blood Pressure 80/63 05/15/17 08:00 Pulse Oximetry 95 05/15/17 06:50 Height/Weight/BMI: Height 1.65 m Weight 49.8 kg Body Mass Index 18.7 - Constitutional Present: no acute distress, well developed, thin - Routine HEENT Exam Head: Present: normocephalic, atraumatic - Routine Respiratory Exam Present: CTA bilaterally. Absent: wheezes - Routine Cardiovascular Exam Present: no murmur, irregularly irregular - Routine Abdominal Exam Present: soft, non distended, non tender - Routine Extremities Exam Present: no edema, normal capillary refill - Routine Skin Exam Present: dry, warm - Routine Neurological Exam Present: alert, oriented X3 - Routine Lymphatic Exam Lymphatic: Absent: adenopathy - Routine Psychiatric Exam Present: normal affect, cooperative Results - Labs CBC & Chem 7: 05/11/17 07:05 05/11/17 07:05 Assessment and Plan Assessment and Plan: Acute Assessment: Recent dx of RSV - -resolved Increased agitation, anxiety and behaviors-improving Hypernatremia-resolved S/P right femoral neck fracture with ORIF on 04/11/17 - Dr. Elizabeth. Traumatic SAH - 04/09/17 - CT on 04/28/17 showed resolution - Dr. Gaxiola. Off anticoagulants. History of 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 (Fluid restriction) Frequent falls with gait instability. 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 Odonnell. Nocturnal home oxygen use at 2L. Chronic diagnoses: Hypertension. Hyperlipidemia. Paroxysmal a-fib. Sick sinus syndrome with pacemaker placement. COPD Vitamin D deficiency. Hypothyroidism. Aortic valve stenosis with prosthetic valve replacement. CAD. Osteoarthritis. Rheumatoid arthritis. Anxiety. Cataracts. History of breast cancer. Plan: Overall doing well. Chart reviewed. DC Pulmicort nebulizer txs. Duonebs currently ordered PRN-will leave order as is in the event pt wants/needs tx. Pt wishes to continue acapella BID, this order was adjusted from QID to BID. Remains on Fluid restriction of 1500ML due to hx of SIADH Continued psychiatric care as per Dr. Garza Encourage patient to participate in unit activities and provide a safe environment - Physician Narrative Narrative: Date: 05/15/17 Time: 0847 Hospital Course Summary Disclaimer: The visit summary below is not to be considered part of the above Progress Note. Hospital Course: Plan - 05/07/17 Continue psychiatric care. Continue to provide safe and supportive environment. Awaiting PT/OT recommendations. Continue home oxygen 2L at night. Oxygen as needed to maintain SAO2 >90%. Patient does not use day time oxygen at home. Currently on 1200cc fluid restriction. Monitor sodium. May be able to increase restriction to 1500. Continue her breathing treatments as long as she continues to have cough. Encourage incentive spirometry. Prednisone treatment complete. Repeat CBC and BMP in AM. New leukocytosis (WBC 11.9) on 05/06/17. Will repeat CXR in AM given recent RSV. Measure I and O and daily weights given her CHF. Follow fall risk protocol given her frequent falls. She remains off anticoagulation given her recent subarachnoid hemorrhage and frequent falls. 05/06/17 Psych: Start Abilify 1mg PO daily. 05/07/17 Psych: Continue current care as Abilify was started on 05/06; monitor response and may consider increase on 05/08 if well-tolerated. Increase mirtazapine to 22.5mg PO q HS. 05/08/17 History of chronically low BP per pt report with SBP ~100 mmHg. Will hold lisinopril for now, cont Lasix Hypernatremia, elevated CO2 (41) -- recheck in am; may need to reduce dose of Lasix. Increase fluid restriction to 1500. Leukocytosis has resolved. Continue supportive care for RSV. 05/08/17 Psych: Plan to increase Abilify to 2mg PO daily on 05/09 as I believe it has been helpful for mood/anxiety. 05/09/17 Psych: Plan to decrease HS Ativan to 0.25mg PO q HS and discontinue as patient has had some overnight hypoxemia. Abilify increased to 2mg this morning - seems to be tolerating well. Monitor mood, behavior and response over the weekend. 05/10/17 Psych- D/C HS Ativan 05/11/17 Pt did not sleep well. Will add back Ativan 0.25mg at HS as breathing is better. 05/12/17 Overall doing well. Chart reviewed. Spoke with staff regarding weaning down oxygen. Baseline is 2 liter at HS only Encourage use of IS during the day Remains on Fluid restriction of 1500ML due to hx of SIADH Continued psychiatric care as per Dr. Garza Encourage patient to participate in unit activities and provide a safe environment 05/12/17 Psych: Continue current care, will contact DPOA in regards to patient's care/progress on the unit. Will leave Ativan 0.25mg PO q HS PRN insomnia. 05/14/17 Psych: Continue current med management; we have requested a consult with [facility] and will ask DPOA Esther to be present as well per patient wishes. Song will also be here tomorrow to assess for AL, which will allow patient to have various options. 05/15/17 Hospitalist: SERGEI Pulmicort nebulizer txs. Duonebs currently ordered PRN- will leave order as is in the event pt wants/needs tx. Pt wishes to continue acapella BID, this order was adjusted from QID to BID.
--- NOTE | 2017-05-15 14:36 | Neuropsych Progress Note ---
[facility] Subjective Date: 05/16/17 - Sujective/Severity of Illness Medications: Acetaminophen (Tylenol) 325 mg PO Q6HR PRN PRN Reason: Pain Last Admin: 05/14/17 22:25 Dose: 325 mg Albuterol/Ipratropium (Duoneb) 3 ml AEROSOL RTQID PRN Last Admin: 05/15/17 06:50 Dose: 3 ml Amiodarone HCl (Pacerone) 200 mg PO DAILY [facility] Last Admin: 05/15/17 08:15 Dose: 200 mg Aripiprazole (Abilify) 2 mg PO DAILY [facility] Last Admin: 05/15/17 08:15 Dose: 2 mg Benzocaine (Cepacol Sore Throat Lozenge) 1 lozenge MM PRN PRN PRN Reason: Sore throat Camphor/Menthol/Eucalyptus (Vicks Vaporub) 1 applic TP TID PRN Carvedilol (Coreg) 6.25 mg PO BIDWM [facility] Last Admin: 05/15/17 08:10 Dose: 6.25 mg Docusate Sodium (Colace) 100 mg PO DAILY [facility] Last Admin: 05/15/17 08:16 Dose: Not Given Furosemide (Lasix) 40 mg PO 0800,1200 [facility] Last Admin: 05/15/17 12:04 Dose: 40 mg Guaifenesin (Mucinex La) 600 mg PO BID [facility] Last Admin: 05/15/17 08:15 Dose: 600 mg Haloperidol (Haldol) 0.5 mg PO Q6H PRN PRN Reason: Extreme agitation Haloperidol (Haldol) 0.5 mg PO Q6H PRN PRN Reason: Extreme agitation Haloperidol Lactate (Haldol) 0.5 mg IM Q6H PRN PRN Reason: Extreme agitation Haloperidol Lactate (Haldol) 0.5 mg IM Q6H PRN PRN Reason: Extreme agitation Insulin Aspart (Novolog) 1 - 5 unit SQ SS PRN; Protocol PRN Reason: Hyperglycemia Last Admin: 05/06/17 21:18 Dose: 1 unit Levothyroxine Sodium (Synthroid) 100 mcg PO ACB [facility] Last Admin: 05/15/17 06:17 Dose: 100 mcg Lisinopril (Prinivil) 2.5 mg PO DAILY [facility] Last Admin: 05/08/17 09:56 Dose: Not Given Lorazepam (Ativan) 0.5 mg PO Q6H PRN PRN Reason: Extreme agitation Lorazepam (Ativan Inj) 0.5 mg IM Q6H PRN PRN Reason: Extreme agitation Lorazepam (Ativan Inj) 0.5 mg IM Q6H PRN PRN Reason: Extreme agitation Lorazepam (Ativan) 0.25 mg PO HS PRN PRN Reason: Insomnia Last Admin: 05/13/17 23:47 Dose: 0.25 mg Magnesium Hydroxide (Mom) 30 ml PO DAILY PRN PRN Reason: Indigestion Magnesium Oxide (Magox) 400 mg PO DAILY [facility] Last Admin: 05/15/17 08:16 Dose: 400 mg Menthol (Ricola Sf) 1 lozenge MM PRN PRN PRN Reason: Cough Last Admin: 05/14/17 21:57 Dose: 1 lozenge Mirtazapine (Remeron) 22.5 mg PO HS [facility] Last Admin: 05/14/17 21:58 Dose: 22.5 mg Polyethylene Glycol (Miralax) 17 gm PO BID [facility] Last Admin: 05/15/17 08:17 Dose: Not Given Potassium Chloride (K-Dur 20 Meq Tablet) 20 meq PO BIDWM [facility] Last Admin: 05/15/17 08:15 Dose: 20 meq Subjective: Patient seen and chart reviewed. Case discussed with treatment team. On interview, patient is pleasant and much more at peace today. Ermelinda Santana is at bedside. They have met with Hospice and decided to proceed with this, with plan to find 24/7 care and have patient return home. Patient denies any SI, HI or AVH. Patient denies any adverse side effects related to psychotropic medications otherwise. Nursing staff report patient is less anxious and has not had any significant behavioral difficulties otherwise. Patient has been adherent with medications. Patient slept only 7 hours overnight. VSS. Patient is eating well. Psychotropic PRNs required in the past 24 hours: None. I also spoke with ermelinda/ZANE Atkinsrey in regards to diagnosis, medication changes and Hospice consult. Recommended giving Kerry control where she can have it as she is dealing with difficult medical conditions that she does not have control over. Start Time: 14:00 Stop Time: 14:20 Mental Status Exam Vitals: Last Vital Signs Temp 98.4 F 03/15/18 08:00 Pulse 104 H 05/15/17 08:00 Resp 16 05/15/17 08:00 BP 80/63 05/15/17 08:00 Pulse Ox 95 05/15/17 06:50 Height: 1.65 m Weight: 49.9 kg - Mental Status Exam Muscle Strength/Tone: Weak Dressing: Casual Grooming: Fair Attitude: Cooperative Motor Activity: Normal Eye Contact: Good Speech: Normal Volume: Normal Rhythm: Appropriate Rhythm Orientation: Oriented to person, Oriented to place, Oriented to time (1 day off) Mood: Neutral Affect: Relaxed Rate of Thoughts: Appropriate Rate Thought Organization: Tangential (at times) Associations: Intact Abstract Reasoning: Intact, able to abstract Thought Content: Normal (dealing with understandable end-of-life issues) Perception/Psychotic: Perception Normal Language: Naming Intact Fund of Knowledge: Appropriate, Other (SLUMS /) Memory: Grossly Intact Suicidal Ideation: Denies Homicidal Ideation: Denies Insight: Fair Judgement: Fair Impulse Control: Good - Laboratory Result Diagrams: 05/11/17 07:05 05/11/17 07:05 Assessment and Plan (1) Anxiety, generalized Current visit: No Status: Acute (2) Neurocognitive disorder Problem details: Medical comorbiditites: Recent dx of RSV - improving S/P right femoral neck fracture with ORIF on 04/11/17 - Dr. Elizabeth. Traumatic SAH - 04/09/17 - CT on 04/28/17 showed resolution - Dr. Gaxiola. History of 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 (Fluid restriction) Frequent falls with gait instability. 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 Odonnell. Nocturnal home oxygen use at 2L. Chronic diagnoses: Hypertension. Hyperlipidemia. Paroxysmal a-fib. Sick sinus syndrome with pacemaker placement. COPD Vitamin D deficiency. Hypothyroidism. Aortic valve stenosis with prosthetic valve replacement. CAD. Osteoarthritis. Rheumatoid arthritis. Cataracts. History of breast cancer. Current visit: No Status: Acute Continue current care; Hospice consult today. Hospital Course Summary Disclaimer: The visit summary below is not to be considered part of the above Progress Note. Hospital Course: Plan - 05/07/17 Continue psychiatric care. Continue to provide safe and supportive environment. Awaiting PT/OT recommendations. Continue home oxygen 2L at night. Oxygen as needed to maintain SAO2 >90%. Patient does not use day time oxygen at home. Currently on 1200cc fluid restriction. Monitor sodium. May be able to increase restriction to 1500. Continue her breathing treatments as long as she continues to have cough. Encourage incentive spirometry. Prednisone treatment complete. Repeat CBC and BMP in AM. New leukocytosis (WBC 11.9) on 05/06/17. Will repeat CXR in AM given recent RSV. Measure I and O and daily weights given her CHF. Follow fall risk protocol given her frequent falls. She remains off anticoagulation given her recent subarachnoid hemorrhage and frequent falls. 05/06/17 Psych: Start Abilify 1mg PO daily. 05/07/17 Psych: Continue current care as Abilify was started on 05/06; monitor response and may consider increase on 05/08 if well-tolerated. Increase mirtazapine to 22.5mg PO q HS. 05/08/17 History of chronically low BP per pt report with SBP ~100 mmHg. Will hold lisinopril for now, cont Lasix Hypernatremia, elevated CO2 (41) -- recheck in am; may need to reduce dose of Lasix. Increase fluid restriction to 1500. Leukocytosis has resolved. Continue supportive care for RSV. 05/08/17 Psych: Plan to increase Abilify to 2mg PO daily on 05/09 as I believe it has been helpful for mood/anxiety. 05/09/17 Psych: Plan to decrease HS Ativan to 0.25mg PO q HS and discontinue as patient has had some overnight hypoxemia. Abilify increased to 2mg this morning - seems to be tolerating well. Monitor mood, behavior and response over the weekend. 05/10/17 Psych- D/C HS Ativan 05/11/17 Pt did not sleep well. Will add back Ativan 0.25mg at HS as breathing is better. 05/12/17 Overall doing well. Chart reviewed. Spoke with staff regarding weaning down oxygen. Baseline is 2 liter at HS only Encourage use of IS during the day Remains on Fluid restriction of 1500ML due to hx of SIADH Continued psychiatric care as per Dr. Garza Encourage patient to participate in unit activities and provide a safe environment 05/12/17 Psych: Continue current care, will contact DPOA in regards to patient's care/progress on the unit. Will leave Ativan 0.25mg PO q HS PRN insomnia. 05/14/17 Psych: Continue current med management; we have requested a consult with [facility] and will ask ZANE Santana to be present as well per patient wishes. Song will also be here tomorrow to assess for AL, which will allow patient to have various options. 05/15/17 Hospitalist: SERGEI Pulmicort nebulizer txs. Duonebs currently ordered PRN- will leave order as is in the event pt wants/needs tx. Pt wishes to continue acapella BID, this order was adjusted from QID to BID. 05/15/17 Psych: Continue current care; Hospice consult today.
[2017-05-15] MEDS: MIRTAZAPINE 15 MG TABLET PO SCH ×2 (19:20→22:04)
[2017-05-15 19:31] VITALS: RESP 20
[2017-05-15] MEDS: ACETAMINOPHEN 325 MG TABLET PO PRN (22:05)
[2017-05-16 08:24] VITALS: BP 91/73; PULSE 114; TEMP 97; O2SAT 94
[2017-05-16] MEDS: CARVEDILOL 6.25 MG TABLET PO SCH (10:01)
[2017-05-16] MEDS: FUROSEMIDE 40 MG TABLET PO SCH ×2 (10:02→14:55)
[2017-05-16] MEDS: AMIODARONE 200 MG TABLET PO SCH (10:02)
[2017-05-16] MEDS: GUAIFENESIN LA 600 MG TABLET PO SCH (10:03)
[2017-05-16] MEDS: MAGNESIUM OXIDE 400 MG TABLET PO SCH (10:03)
[2017-05-16] MEDS: ARIPiprazole 2 MG TABLET PO SCH (10:03)
[2017-05-16] MEDS: POLYETHYL GLYCOL 3350 17gm PACKET PO SCH ×2 (10:04→11:24)
[2017-05-16] MEDS: DOCUSATE SODIUM 100 MG CAPSULE PO SCH (10:06)
[2017-05-16] MEDS: LEVOTHYROXINE 100 MCG TAB - PT OWN PO SCH (10:07)
--- NOTE | 2017-05-16 13:08 | Progress Note ---
Progress Note: Patient decided on 05/15/17 to enter Hospice care; DPOA/family in agreement. On , patient stated she would feel more comfortable in her own home and asked to be discharged today rather than on Friday as previously planned. Discussed with CM as I am not able to go to the hospital for rounds until later in the day. Patient will have 24/7 care after she returns home, and she has never been a danger to herself or others. I am in agreement with honoring patient's wishes and plan to discharge patient to home this afternoon; Hospice will assume care after discharge.
== END 2017-05-16 14:55 | disposition hospice, home (50) | DRG 880 ==
LOC: GEN 15:00
PROVIDERS: ADMIT Psychiatry & Neurology Psychiatry; ATTEND Psychiatry & Neurology Psychiatry